=== PATIENT | male | born 1950 | race Caucasian/White ===

== ENCOUNTER 2018-07-22 12:19 | Emergency (ER) | payer MEDICARE, OTHER, SELFPAY ==
[2018-07-22 12:20] VITALS: BP 103/76; PULSE 70; RESP 18; TEMP 36.6; O2SAT 98; BMI 25.7
--- NOTE | 2018-07-22 12:55 | EKG12_ITS ---
Test Reason : AB PAIN Blood Pressure : / mmHG Vent. Rate : 058 BPM Atrial Rate : 058 BPM P-R Int : 146 ms QRS Dur : 100 ms QT Int : 430 ms P-R-T Axes : 026 002 034 degrees QTc Int : 422 ms Sinus bradycardia Otherwise normal ECG Confirmed by MILA MANZANARES, KARAN ([id number]), editorial specialist ANGE TRIPATHI ([id number]) on 07/24/2018 3:24:03 PM Referred By: PETER Confirmed By:KARAN ZARAGOZA MD
--- NOTE | 2018-07-22 12:56 | CT_ITS ---
STUDY: CT ABDOMEN AND PELVIS WITH CONTRAST REASON FOR EXAM: Male, 67 years old. Abdominal pain. RADIATION DOSAGE (If Supplied By Facility): CTDIvol = ( 14.10 ) mGy, DLP = ( 826.40 ) mGycm TECHNIQUE: Transaxial images were obtained from the dome of the diaphragm to the symphysis pubis without oral contrast. 10 ml of Isovue 300 contrast was administered. Sagittal and coronal images were reconstructed. Individualized dose optimization techniques were used for this CT. COMPARISON: None. FINDINGS: The visualized lung bases are unremarkable. The visualized portions of the heart are within normal limits. There is diffuse fatty infiltration of the liver. No focal lesion is seen. There is no evidence of gallstones. There is mild prominence of the intrahepatic biliary ducts and the common bile duct. Normal spleen. There are pancreatic calcifications in the distribution of the ducts consistent with chronic pancreatitis. There is mild prominence of the uncinate process of the pancreatic head. Normal bilateral adrenal glands. Normal right kidney. Normal left kidney. Normal visualized stomach. There are nonspecific fluid-filled small bowel loops. There is no evidence of small bowel obstruction. There is fecal retention. There is mild diverticulosis of the descending and sigmoid colon. There is no evidence of acute diverticulitis. The appendix is visualized and appears normal. Normal abdominal aorta. Normal inferior vena cava. Normal retroperitoneum. Normal urinary bladder. There is a large mass indenting the base of the bladder measuring about 4.7 cm likely representing enlarged prostate indenting the base of the bladder. Bladder mass or other cannot be entirely excluded. Urologic consultation is recommended. Normal abdominal wall. There are degenerative changes of the visualized lumbar spine. CT/Abdomen/Pelvis WITH Contrast IMPRESSION: Enlarged prostate with large mass indenting the left side of the bladder base as described above which could represent enlarged prostate or prostatic mass protruding into the base of the bladder. Bladder mass however cannot be entirely excluded. Fatty infiltration of the liver. Mild dilatation of the intrahepatic biliary ducts and the common bile duct without visualized retained stone in the distal common bile duct. Mild prominence of the uncinate process of the pancreas. Further investigation is needed to exclude small mass. Chronic pancreatitis. Diverticulosis without evidence of acute diverticulitis. Electronically Signed: Saji Abel MD at 15:27 EDT Tel , Service support ,
--- NOTE | 2018-07-22 12:58 | ED.VISSUMM ---
- ER Visit Summary Date of Service: 07/22/18 Chief Complaint: Yellow skin and abdominal discomfort History of Present Illness: The patient is a 67 M who presents for 2 days of dark urine, light-colored stool, and a generalized abdominal discomfort with yellowing of the skin today. Patient denies overt abdominal pain and cannot describe how he feels, but just feels uncomfortable in the abdomen. Skin noted to be yellow today. He has no history of travel, exotic foods, any concern for exposure to hepatitis, no fever or any other complaints. Patient has no medical history other than BPH. No recent medication changes. Patient does not drink alcohol. Physical Examination: Vital signs: afebrile, hemodynamically stable, no hypoxia on room air General: well nourished, well developed, in no distress Skin: warm, dry, no rash, no pallor, diffuse jaundice HEENT: normocephalic and atraumatic; PERRL, EOMI, moist mucous membranes, scleral icterus Cardiovascular: regular rate and rhythm without murmurs, no peripheral edema, 2+ pulses all distal extremities Respiratory: No increased work of breathing, lungs are clear to auscultation bilaterally, no rales, rhonchi or wheezing Abdominal: Abdomen is soft, nontender with normoactive bowel sounds, no guarding or rebound, no masses MSK: Moves all extremities, no deformities, normal strength Neuro: Awake and alert, oriented ?4. No facial droop, sensation and motor function intact and symmetric Test Results: Abnormal Lab Results 07/22/18 07/22/18 07/22/18 13:55 13:55 13:55 WBC 6.3 RBC 5.35 Hgb 16.9 H Hct 48.6 MCV 90.8 MCH 31.6 MCHC 34.8 RDW 13.2 RDW Differential 43.6 Plt Count 200 MPV 9.2 Immature Gran % (Auto) 0.300 Neut % (Auto) 57.9 Lymph % (Auto) 34.1 [place] % (Auto) 5.7 Eos % (Auto) 1.4 Baso % (Auto) 0.6 Absolute Neuts (auto) 3.6 Absolute Lymphs (auto) 2.14 Total Counted Not Reportable Sodium 137 Potassium 4.3 Chloride 104 Carbon Dioxide 26.0 Anion Gap 7 BUN 15 Creatinine 1.02 Estim Creat Clear Calc 74.85 Est GFR (MDRD) Af Amer 94 Est GFR (MDRD) Non-Af 77 BUN/Creatinine Ratio 14.7 Glucose 82 Lactic Acid 0.9 Calcium 9.0 Total Bilirubin 10.30 H Direct Bilirubin 5.79 H AST 181 H ALT 333 H Alkaline Phosphatase 284 H Troponin I < 0.015 Total Protein 7.9 Albumin 3.6 Globulin 4.3 H Amylase 84 Lipase 208 Urine Color Urine Clarity Urine pH Ur Specific [place] Urine Protein Urine Glucose (UA) Urine Ketones Urine Occult Blood Urine Nitrite Urine Bilirubin Urine Urobilinogen Ur Leukocyte Esterase Urine RBC Urine WBC Ur Squamous Epith Cells Other Crystals Urine Bacteria Urine Mucus 07/22/18 13:55 WBC RBC Hgb Hct MCV MCH MCHC RDW RDW Differential Plt Count MPV Immature Gran % (Auto) Neut % (Auto) Lymph % (Auto) [place] % (Auto) Eos % (Auto) Baso % (Auto) Absolute Neuts (auto) Absolute Lymphs (auto) Total Counted Sodium Potassium Chloride Carbon Dioxide Anion Gap BUN Creatinine Estim Creat Clear Calc Est GFR (MDRD) Af Amer Est GFR (MDRD) Non-Af BUN/Creatinine Ratio Glucose Lactic Acid Calcium Total Bilirubin Direct Bilirubin AST ALT Alkaline Phosphatase Troponin I Total Protein Albumin Globulin Amylase Lipase Urine Color Yellow Urine Clarity Sl. Cloudy Urine pH 5.0 Ur Specific [place] 1.015 Urine Protein Negative Urine Glucose (UA) Normal Urine Ketones Negative Urine Occult Blood 10 H Urine Nitrite Negative Urine Bilirubin 3 H Urine Urobilinogen 4 H Ur Leukocyte Esterase 25 H Urine RBC 0 SEEN Urine WBC 0-5 SEEN Ur Squamous Epith Cells 0-5 SEEN Other Crystals 2+ Urine Bacteria RARE Urine Mucus RARE Clinical Impression(s) from Imaging Studies Abdomen/Pelvis CT 07/22/18 12:56 IMPRESSION: Enlarged prostate with large mass indenting the left side of the bladder base as described above which could represent enlarged prostate or prostatic mass protruding into the base of the bladder. Bladder mass however cannot be entirely excluded. Fatty infiltration of the liver. Mild dilatation of the intrahepatic biliary ducts and the common bile duct without visualized retained stone in the distal common bile duct. Mild prominence of the uncinate process of the pancreas. Further investigation is needed to exclude small mass. Chronic pancreatitis. Diverticulosis without evidence of acute diverticulitis. Electronically Signed: Saji Abel MD at 15:27 EDT Tel , Service support , Medications Given Discontinued Medications Sodium Chloride () 1,000 mls @ 1,000 mls/hr IV .Q1H ONE Stop: 07/22/18 13:53 Last Admin: 07/22/18 14:09 Dose: 1,000 mls/hr Emergency Department Course and Treatment: Patient was offered and declined pain medication, as he is currently not having any significant discomfort or nausea. Workup for painless jaundice was performed, with no leukocytosis or anemia, no electrolyte derangements. Hepatic function remarkable for elevated total bilirubin of 10.3, direct bilirubin 5.79, and mild transaminitis. Lipase was within normal limits. Troponin negative. EKG showed no ischemic process. CT the abdomen and pelvis was performed and showed findings consistent with chronic pancreatitis and a questionable mass in the pancreatic head. it also showed an enlarged prostate versus prostate mass, which is consistent with patient's history of known BPH. Patient was discussed with Dr. Luna, who recommended patient be transferred for specialty evaluation, given that this is likely going to be pancreatic cancer and he will require GI specialist evaluation. Patient requested transfer to [facility]. Patient was discussed with Dr. Adhikari, and will be transferred to the [facility] for specialist evaluation. Plan was discussed with the patient and and all questions were answered. Patient again was offered medication for any pain or nausea, and he at this time declined as he is having no symptoms. Treatment Plan: [] Disposition: [] Impression: Painless jaundice, pancreatic mass, concern for pancreatic cancer This note was generated with [employer] dictation software. It may contain incorrect words, spelling, and punctuation that were not noted in review of the chart prior to signing ED Disposition - Plan for ED Patient: Chief Complaint: Abd Pain Referrals: Royce Springer MD [Primary Care Provider] -
[2018-07-22 14:05] LABS: Red Blood Cells-Urine 0 SEEN /hpf (0-5)
[2018-07-22 14:09] LABS: Absolute Lymphocyte Count 2.14 X10^3/ul (0.83-4.51); Absolute Neutrophil Count 3.6 X10^3/uL (2.0-7.7); Basophil# 0.04 X10^3/uL; Basophil% 0.6 % (0-1); Color, Urine Yellow (Yellow); Eosinophil# 0.09 X10^3/uL; Eosinophils% 1.4 % (0-5); Glucose, Dipstick Normal (Normal); Hematocrit 48.6 % (40-54); Hemoglobin 16.9 g/dl (13.0-16.5); Ketone-Dipstick Negative (Negative); Leukocyte Esterase-Dipstick 25 /ul (Negative); Lymphocyte # 2.14 X10^3/ul (4.0); Lymphocyte % 34.1 % (19-41); Mean Corp Hgb Conc 34.8 g/gl (32-36); Mean Corpuscular Hgb 31.6 pg (27.0-32.0); Mean Corpuscular Volume 90.8 fL (80-94); Mean Platelet Vol. 9.2 fl (6.2-12.0); Monocyte# 0.36 X10^3/uL; Monocyte% 5.7 % (0-10); Neutrophil # 3.63 X10^3/uL (2.7-7.7); Neutrophil % 57.9 % (47-70); Nitrite-Dipstick Negative (Negative); Occult Blood-Urine 10 /ul (Negative); Platelet Count 200 K/mm3 (150-450); Protein-Dipstick Negative (Negative); RBC Distribution Width CV 13.2 % (11.6-14.6); RBC Distribution Width SD 43.6 fl (35.1-43.9); Red Blood Count 5.35 M/mm3 (4.6-6.2); Specific Gravity, Urine 1.015 (1.002-1.030); Urine Clarity Sl. Cloudy (Clear); Urine Urobilinogen 4 mg/dl (Normal); White Blood Count 6.3 K/mm3 (4.4-11.0)
[2018-07-22] MEDS: 0.9% Normal Saline 1,000 ML 1000 ML IV (14:09)
[2018-07-22 14:12] LABS: POSITIVE COUNT NO; POSITIVE DIFFERENTIAL NO; POSITIVE MORPHOLOGY NO
[2018-07-22 14:19] LABS: Squamous Epithelial Cells - UA 0-5 SEEN /hpf (0-5); Urine Bilirubin Dipstick 3 mg/dL (Negative); White Blood Cells 0-5 SEEN /hpf (0-5)
[2018-07-22 14:20] LABS: Bacteria RARE /hpf (None Seen); Mucous, Urine RARE /hpf (<or=2+); Other Crystals-Urine 2+ /hpf (None Seen)
[2018-07-22 14:32] LABS: AST(SGOT) 181 U/L (15-37); Alanine Aminotransfer ALT/SGPT 333 U/L (16-61); Albumin, Serum 3.6 g/dL (3.2-5.0); Alkaline Phosphatase 284 U/L (45-117); Amylase 84 U/L (25-115); Anion Gap 7 (5-15); BUN 15 mg/dL (7-18); BUN/Creat Ratio 14.7 RATIO (10-20); Bilirubin, Direct 5.79 mg/dL (0.00-0.30); Chloride 104 mmol/L (98-107); Creatinine, Serum 1.02 mg/dL (0.70-1.30); EST Glomerular Filtration Rate 77 mL/min (>60); Est Glom Filt Rate - Afr Amer 94 mL/min (>60); Estimated Creatinine Clearance 74.85 ml/min; Globulin 4.3 g/dL (2.2-4.2); Glucose 82 mg/dL (74-106); Lipase 208 U/L (73-393); Potassium 4.3 mmol/L (3.5-5.1); Protein, Total 7.9 g/dL (6.4-8.2); Sodium Level 137 mmol/L (136-145)
[2018-07-22 14:46] LABS: Lactic Acid 0.9 mmol/L (0.4-2.0)
[2018-07-22 15:10] VITALS: BP 137/92; PULSE 70; RESP 16; O2SAT 99
--- NOTE | 2018-07-22 16:27 | NURSING ---
CALLING [facility] FOR TRANSFER.
--- NOTE | 2018-07-22 17:51 | NURSING ---
[facility] MAIN H81 BED 25 REPORT [phone]
[2018-07-22 18:00] VITALS: BP 135/91; PULSE 65; RESP 16; O2SAT 98
--- NOTE | 2018-07-22 18:50 | ED.RN ---
1811-attempted to call nurse report at [facility]. Was told the nurse was busy. Gave my name and number to call back. 1850- second attempt to call report to [facility]. Was told the nurse was still busy. Was told to call back after 1900.
[2018-07-22 19:04] VITALS: BP 135/95; PULSE 85; RESP 16; O2SAT 98
[2018-07-25 08:12] LABS: HEPATITIS B SURFACE AG Negative (Negative); Hepatitis A IgM Antibody Negative (Negative); Hepatitis B Core AB IgM Negative (Negative)
[2018-07-25 11:43] LABS: Hep C Antibodies <0.1 s/co ratio (0.0-0.9)
== END 2018-07-22 20:05 | disposition short-term general hospital (02) ==
PROVIDERS: Emergency Provider Emergency Medicine; Family Provider Internal Medicine; PCP Internal Medicine
DX: R17 Unspecified jaundice (principal); K86.89 Other specified diseases of pancreas; N40.0 Benign prostatic hyperplasia without lower urinary tract symptoms; Z79.899 Other long term (current) drug therapy
CPT/HCPCS: 74177; 80048; 80074; 80076; 81001; 82150; 83605; 83690; 84484; 85025; 93005; 99285; J7030; A4216

== ENCOUNTER 2018-09-22 07:39 | Emergency (ER) | payer MEDICARE, OTHER, SELFPAY ==
[2018-09-22] VITALS (7 sets, daily range): BP systolic 97–121; BP diastolic 60–78; PULSE 76–93; RESP 17–24; TEMP 36.8–37.6; O2SAT 94–97; BMI 25.7
--- NOTE | 2018-09-22 07:59 | RAD_ITS ---
STUDY: X-RAY CHEST REASON FOR EXAM: Male, 67 years old. 2 day history of chills and weakness. TECHNIQUE: Single AP portable view of the chest. COMPARISON: None. FINDINGS: EKG electrodes are seen. Mild elevation of the right hemidiaphragm. Minimal increased linear markings at the left lung base suggestive of linear atelectasis and/or scarring. No infiltrate is seen. There is no demonstrated pleural abnormality. Normal size heart. Normal mediastinum and jen. Normal visualized pulmonary arteries. Normal visualized aortic arch and descending thoracic aorta. There is a mild levoscoliosis of the thoracic spine. I suspect deformity of the anterior aspect of the left sixth rib. There is no demonstrated abnormality of the visualized soft tissue structures of the upper abdomen. RAD/Chest 1 View (Portable) IMPRESSION: Findings suggestive of deformity of the anterior aspect of the left sixth rib. Mild increased markings at the left lung base suggestive of linear atelectasis and/or scarring. Electronically Signed: Rico Skinner MD at 9:27 EST Tel [phone], Service support ,
--- NOTE | 2018-09-22 07:59 | EKG12_ITS ---
Test Reason : WEAKNESS Blood Pressure : / mmHG Vent. Rate : 078 BPM Atrial Rate : 078 BPM P-R Int : 132 ms QRS Dur : 102 ms QT Int : 370 ms P-R-T Axes : 043 019 044 degrees QTc Int : 421 ms Normal sinus rhythm Normal ECG Confirmed by KARAN ZARAGOZA MD ([id number]), art editor ANGE TRIPATHI ([id number]) on 09/27/2018 3:35:23 PM Referred By: DC Confirmed By:KARAN ZARAGOZA MD
--- NOTE | 2018-09-22 07:59 | CT_ITS ---
STUDY: CT ABDOMEN AND PELVIS WITH CONTRAST REASON FOR EXAM: Male, 67 years old. Recent endoscopic pancreatic biopsy with stent placement. The patient now presents with constipation and abdominal pain. RADIATION DOSAGE (If Supplied By Facility): CTDIvol = ( 10.78 ) mGy, DLP = ( 685.44 ) mGycm TECHNIQUE: Transaxial images were obtained from the dome of the diaphragm to the symphysis pubis without oral contrast. 100 ml of Isovue 300 contrast was administered. Sagittal and coronal images were reconstructed. Individualized dose optimization techniques were used for this CT. COMPARISON: Comparison is made with prior examination dated July 22, 2018. FINDINGS: Stable minimal degree of increased markings at the lung bases suggestive of bibasilar atelectasis and/or scarring. The visualized portions of the heart are within normal limits. There is evidence of a pneumobilia. This is in keeping with the presence of a stent within the common bile duct. A biliary stent is seen within the common bile duct. The distal tip is within the second portion of the duodenum. The lumen of the stent shows evidence of increased attenuation. This may represent either fluid or soft tissue. The gallbladder is not distended. There is mild splenomegaly. There are pancreatic calcifications in the distribution of the ducts consistent with chronic pancreatitis. Stable mild prominence of the uncinate processes of the pancreas. Normal bilateral adrenal glands. Normal right kidney. Normal left kidney. There is a small hiatal hernia. Normal small intestine. A large amount of fecal material is seen in the left hemicolon as well as in the rectosigmoid colon. The appendix is visualized and appears normal. Normal abdominal aorta. Normal inferior vena cava. Normal retroperitoneum. Normal urinary bladder. There is inhomogeneous enlargement of the prostate gland. This measures 6 cm x 4.7 cm. This causes indentation at the bladder base. Normal abdominal wall. There are degenerative changes of the visualized lumbar spine. CT/Abdomen/Pelvis W IV Cont ONLY IMPRESSION: Pneumobilia. A stent is seen within the common bile duct with the distal aspect within the second portion of the duodenum. The lumen of the stent is fluid-filled. Stable pancreatic calcifications suggestive of chronic pancreatitis was stable prominence of the uncinate process of the pancreas. Large amount of fecal material is seen in the rectosigmoid colon as well as in the left hemicolon. Inhomogeneous prostatic enlargement. Electronically Signed: Rico Skinner MD at 9:25 EST Tel [phone], Service support ,
[2018-09-22 08:18] LABS: Absolute Lymphocyte Count 0.65 X10^3/ul (0.83-4.51); Absolute Neutrophil Count 6.7 X10^3/uL (2.0-7.7); Basophil# 0.01 X10^3/uL; Basophil% 0.1 % (0-1); Hematocrit 46.3 % (40-54); Hemoglobin 16.4 g/dl (13.0-16.5); Lymphocyte # 0.65 X10^3/ul (4.0); Lymphocyte % 8.2 % (19-41); Mean Corp Hgb Conc 35.4 g/gl (32-36); Mean Corpuscular Hgb 31.5 pg (27.0-32.0); Mean Platelet Vol. 8.4 fl (6.2-12.0); Monocyte# 0.58 X10^3/uL; Monocyte% 7.3 % (0-10); Neutrophil # 6.65 X10^3/uL (2.7-7.7); Neutrophil % 84.1 % (47-70); Platelet Count 121 K/mm3 (150-450); RBC Distribution Width CV 12.5 % (11.6-14.6); RBC Distribution Width SD 39.9 fl (35.1-43.9); White Blood Count 7.9 K/mm3 (4.4-11.0)
[2018-09-22 08:19] LABS: POSITIVE COUNT NO; POSITIVE DIFFERENTIAL NO; POSITIVE MORPHOLOGY NO
[2018-09-22 08:26] LABS: International Normalized Ratio 1.1; Prothrombin Time (Protime)PT. 14.1 SECONDS (11.7-14.9)
[2018-09-22 08:27] LABS: Partial Thromboplast Time 26.3 Seconds (24.1-36.2)
[2018-09-22] MEDS: 0.9% Normal Saline 1,000 ML 1000 ML IV (08:35)
[2018-09-22 08:36] LABS: ALB/GLOB Ratio 0.8 RATIO (0.9-2.4); AST(SGOT) 76 U/L (15-37); Alanine Aminotransfer ALT/SGPT 97 U/L (16-61); Albumin, Serum 3.1 g/dL (3.2-5.0); Alkaline Phosphatase 193 U/L (45-117); Anion Gap 10 (5-15); BUN 17 mg/dL (7-18); BUN/Creat Ratio 18.2 RATIO (10-20); Calcium,Total 8.4 mg/dL (8.5-10.1); Chloride 103 mmol/L (98-107); Creatinine, Serum 0.93 mg/dL (0.70-1.30); EST Glomerular Filtration Rate 86 mL/min (>60); Est Glom Filt Rate - Afr Amer 104 mL/min (>60); Estimated Creatinine Clearance 82.09 ml/min; Globulin 4.1 g/dL (2.2-4.2); Glucose 140 mg/dL (74-106); Lipase 134 U/L (73-393); Potassium 3.6 mmol/L (3.5-5.1); Protein, Total 7.2 g/dL (6.4-8.2); Sodium Level 137 mmol/L (136-145)
[2018-09-22 08:38] LABS: Lactic Acid 1.7 mmol/L (0.4-2.0)
--- NOTE | 2018-09-22 08:53 | ED.VISSUMM ---
- ER Visit Summary Date of Service: 09/22/18 Chief Complaint: No energy History of Present Illness: The patient is a 67 M who has a recent past medical history of a pancreatic mass and dilated bile ducts. He was seen at this emergency department in July and transferred to the [facility] for abnormal findings on his CT and a possible pancreatic mass. He had a biopsy performed at that time. It was benign but they are still not sure what is causing his issues. He had a stent placed in his bile duct at that time as well. He followed up after 2 months, on this past Tuesday. He had a repeat endoscopy and biopsy. Results are still pending from that. Over the past 3 days he reports decreased energy, chills, low-grade fevers, myalgias, and fatigue. No specific symptoms. No chest pain or shortness of breath. No cough. No abdominal pain or diarrhea. He has not had a bowel movement for a few days. No urinary symptoms. No rashes. No joint pains. Physical Examination: Blood pressure 97/60. Heart rate 93 and respiratory rate 24. Afebrile. 94% on room air. The patient appears to show some generalized fatigue and weakness but is otherwise in no acute distress. He is alert and oriented. Skin appears unremarkable. Heart regular rate and rhythm. Lungs clear. Abdomen soft and nontender. Test Results: EKG showed sinus rhythm at a rate of 78. No sign of acute ischemia or infarction pattern. Platelets 121, down from 200 a couple months ago. Otherwise CBC normal. Metabolic panel shows elevated liver enzymes, but they are all better from when he was here previously. Lipase normal. Coags normal. Troponin and lactate normal. Urinalysis, chest x-ray, CT pending. Emergency Department Course and Treatment: Patient has generalized and fairly vague symptoms. He could be coming down with a viral illness. I am also concerned about complications from his recent procedure and his prior hepatobiliary disease. I did consider sepsis, and a broad workup was pursued. He did not technically meet sepsis criteria, and so antibiotics were initially held. Will reassess. White count normal. Platelets slightly low at 121. Coags normal. No bleeding or clotting suspected. Hepatic panel is all improved since his previous evaluation. I do not have a baseline for him. Total bilirubin 1.7, alkaline phosphatase 193, ALT 97, AST 76. Nothing significantly abnormal. Urinalysis unremarkable. No sign of infection. Troponin and lactate normal. Cultures pending. Chest x-ray showed 6 rib anterior deformity. Left base atelectasis versus scarring. I reviewed his x-ray. There was nothing concerning there that would explain his symptoms. CT showed pneumobilia consistent with his history of a stent and his procedure. The stent is fluid-filled. He has some pancreatic changes which are stable. Increased fecal material noted. Enlarged prostate noted. No sign of anything to explain his symptoms. No sign of post procedure complications. Patient felt better on reevaluation. No further chills. I am not sure what is causing his symptoms. He is not septic. I cannot identify a complication from his procedure. He may be coming down with a viral illness. I advised him to rest and stay hydrated. I believe he is appropriate for discharge. He has follow-up with his doctor. If he has new or worsening issues or difficulty following up, he will return right away. I did page his [facility] doctor, Dr. Johnson but at the time of this dictation, I have not heard back. Treatment Plan: As above Disposition: Discharge Impression: 1. Generalized fatigue This note was generated with [employer] dictation software. It may contain incorrect words, spelling, and punctuation that were not noted in review of the chart prior to signing ED Disposition - Plan for ED Patient: Chief Complaint: Weakness Instructions: ED Weakness [facility] Referrals: Royce Springer MD [Primary Care Provider] - Additional Instructions: also follow up with your [facility] doctor as planned.
[2018-09-22 10:01] LABS: Bacteria 0 SEEN /hpf (None Seen); Mucous, Urine 0 SEEN /hpf (<or=2+); Squamous Epithelial Cells - UA 0 SEEN /hpf (0-5); White Blood Cells 0 SEEN /hpf (0-5)
[2018-09-22 10:05] LABS: Color, Urine Yellow (Yellow); Glucose, Dipstick Normal (Normal); Ketone-Dipstick Negative (Negative); Leukocyte Esterase-Dipstick Negative /ul (Negative); Nitrite-Dipstick Negative (Negative); Occult Blood-Urine 250 /ul (Negative); Protein-Dipstick 15 mg/dl (Negative); Urine Bilirubin Dipstick Negative (Negative); Urine Clarity Clear (Clear); Urine Urobilinogen 1 mg/dl (Normal)
[2018-09-22 10:17] LABS: Red Blood Cells-Urine 0-5 SEEN /hpf (0-5)
--- NOTE | 2018-09-22 11:22 | ED.DEP ---
ED Disposition - Plan for ED Patient: Chief Complaint: Weakness Instructions: ED Weakness [facility] Referrals: Royce Springer MD [Primary Care Provider] - Additional Instructions: also follow up with your [facility] doctor as planned.
--- OUTSIDE RECORDS SUMMARY | 2018-11-07 19:37 | XMS RPT_ITS ---
:1950 Author Organization OHIP Care Team Providers Name Role Phone LEIGH WINSTON (GORDO) Attending Unavailable ROYCE SPRINGER H Referring Unavailable LEIGH WINSTON (HIGH SCALER) Referring Unavailable LEIGH WINSTON (HIGH SCALER) Referring Unavailable KEILA SALINAS (HECTOR) Attending Unavailable LEIGH WINSTON (HIGH SCALER) Referring Unavailable DELVIN CRISTIANO Referring Unavailable OLDERLEIGH (HIGH SCALER) Attending Unavailable DELVIN CRISTIANO Referring Unavailable NEISHA BLEDSOE Admitting Unavailable KIM CARRANZA) Attending Unavailable DEL, JOSUEEN Attending Unavailable DEL, PRABHLEEN Attending Unavailable DEL, PRABHLEEN Referring Unavailable MARGARET PALENCIA (COURT SUPERVISOR) Referring Unavailable MARGARET PALENCIA (COURT SUPERVISOR) Referring Unavailable ARA MICHAELS (LISY) Attending Unavailable KIM CARRANZA) Referring Unavailable ARA MICHAELS (LISY) Referring Unavailable DEL, PRABHLEEN Admitting Unavailable DEL, PRABHLEEN Attending Unavailable DEL, PRABHLEEN Attending Unavailable JULIAN ANDREWS Referring Unavailable ARA MICHAELS (LISY) Attending Unavailable ROYCE SPRINGER Referring Unavailable DEL, PRABHLEEN Admitting Unavailable DEL, PRABHLEEN Attending Unavailable ARA MICHAELS (LISY) Referring Unavailable DEL, PRABHLEEN Attending Unavailable ARA MICHAELS (LISY) Referring Unavailable NO, PHYSICIAN Primary Care Unavailable [facility] Consulting Unavailable SWETA LIU Admitting Unavailable DANNIELLE MCGUIRE Attending Unavailable Royce Springer Primary Care Unavailable Bart Louise Attending Unavailable Royce Springer Primary Care Unavailable Valeria Denton Attending Unavailable PROBLEMS PROBLEMS DATE TYPE CONDITION / CODE ATTENDING STATUS SOURCE 10/24/2018 Active Cyst of pancreas NA Active [facility] / K86.2(ICD-10) [place] Repository 08/02/2018 Active Other abnormal NA Active [facility] tumor markers / [place] R97.8(ICD-10) Repository 07/26/2018 Active Disease of NA Active [facility] pancreas, [facility] [place] unspecified / Repository K86.9(ICD-10) 07/26/2018 Active Other specified THIPPANNA, Active [facility] diseases of KIM BRENNER) [place] biliary tract / Repository K83.8(ICD-10) 07/23/2018 Active Pure THIPPANNA, Active [facility] hypercholesterole KIM BRENNER) [facility] [place] aamir, unspecified Repository / E78.00(ICD-10) 07/23/2018 Active Family history of THIPPANNA, Active [facility] malignant KIM BRENNER) [place] neoplasm of Repository digestive organs / Z80.0(ICD-10) 07/23/2018 Active Benign prostatic THIPPANNA, Active [facility] hyperplasia with KIM BRENNER) [place] lower urinary Repository tract symptoms / N40.1(ICD-10) 07/23/2018 Active Other obstructive THIPPANNA, Active [facility] and reflux KIM BRENNER) [place] uropathy / Repository N13.8(ICD-10) 11/24/2017 Active Other microscopic NA Active [facility] hematuria / [place] R31.29(ICD-10) Repository 11/24/2017 Active Abnormal levels NA Active [facility] of other serum [place] enzymes / Repository R74.8(ICD-10) 11/23/2017 Active 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 [place] therapy / Repository Z79.899(ICD-10) 11/23/2017 Active Weakness / NA Active [facility] R53.1(ICD-10) [place] Rep[facility] 11/23/2017 Active Other fatigue / NA Active [facility] R53.83(ICD-10) [place] Repository 11/23/2017 Active Unspecified NA Active [facility] abdominal pain / [place] R10.9(ICD-10) Repository 11/19/2017 Admitting Syncope and DANNIELLE MCGUIRE Active [facility] diagnosis collapse / [place] Repository R55(ICD-10) PROCEDURES PROCEDURES No Procedure Records FoundRESULTS RESULTS ANES POST Observed: 10/24/2018 Status: COMPLETED Source: [place] 3:35 PM [facility] REPOSITORY HNO ID: [id number] Author: Ara Boland Service: Anesthesiology Author Type: Anesthesiologist Type: Anesthesia PostOp Filed: 10/24/2018 3:36 PM Note Text: POST ANESTHESIA EVALUATION NOTE SERVICE DATE: 10/24/2018 SERVICE TIME: 153 : 1950 Vitals: There were no vitals filed for this visit. There were no vitals filed for this visit. There were no vitals filed for this visit. There were no vitals filed for this visit. There were no vitals filed for this visit. Validated Vital Signs: HR: 68; BP: 127/71; RR: 16; SpO2%: 96; Temperature: 36.3 POST ANES STATUS: No apparent anesthetic complications. The patient is appropriately hydrated with stable respiratory and cardiovascular status. Patient has safe and adequate airway control. The patient has appropriate pain relief and no significant post operative nausea or vomiting. The patient has achieved baseline mental status. Intra-Operative Events: No Significant Anesthesia Events Further assessment by Anesthesia Service: None Other Remarks: SIGNATURE: Ara Boland MD PATIENT NAME: Guerrero Wilson DATE: October 24, 2018 TIME: 3:35 PM PAGER/CONTACT #: [phone] OBSOLETE Observed: 10/24/2018 Status: COMPLETED Source: [place] 3:00 PM [facility] REPOSITORY Procedure (GASTPR) GUERRERO WILSON ([id number]) 1950 M Date Time Provider Department 10/24/18 3:00 PM LUIS JOHNSON GASTPR During your visit today, we recorded the following information about you: Julian Ford LPN 10/24/2018 5:28 PM Signed AMBULATORY PATIENT EDUCATION NOTE TOPIC: GI PROCEDURES: Endoscopic Ultrasound (EUS) with or without Fine Needle Aspiration (FNA) READINESS TO LEARN INSTRUCTION PROVIDED TO: Patient and family member COGNITIVE ABILITY: Alert and oriented PTED MOTIVATION TO LEARN: Interested FAMILY SUPPORT: High - Very involved in pt care IPATIENT LEARNS BEST BY: Written Instruction - Hand-outs Verbal Instruction FACTORS AFFECTING LEARNING: None PHYSICAL LIMITATIONS AFFECTING LEARNING: None LEARNING RESPONSE METHOD OF INSTRUCTION: Individual instruction PATIENT / FAMILY RESPONSE: Verbalizes understanding of: WORSENING CONDITION-Signs and symptoms of a worsening condition that warrant a call to the physician FOLLOW-UP PLAN: Patient instructed to call with any further issues SUPPLEMENTAL MATERIAL: Procedure Discharge Instructions REFERRAL (RECOMMENDATION): None Electronically Signed By: Julian Ford LPN Referring Provider: ARA MICHAELS [[id number]] Allergies As of Date: 10/24/2018 (No Known Allergies) Date Reviewed: 10/24/2018 Reviewed by: Stacie Hackett (Rn) LAZARO Lennon - Fully Assessed Reason for Visit: Procedure [88] Cmt: ERCP Visit Diagnosis:Pancreatic mass [K86.9] Order(s):ERCP GEN ANES [[id number]] Order #: [id number] UPPER ENDOSCOPIC ULTRASOUND [[id number]] Order #: [id number]. #:[id number] Prescriptions as of 10/24/2018 Sig: PREDNISONE 20 MG TABLET Take 1 tablet by mouth once d* PREDNISONE 10 MG TABLET Take 1 tablet by mouth once d* FINASTERIDE 5 MG TABLET Take 1 tablet by mouth once d* SILDENAFIL (ANTIHYPERTENSIVE)* Take 1 tablet by mouth as dir* * MULTIVITAMIN TABLET Take one(1) tablet daily. Problem List As Of Date 10/24/2018 Noted Resolved Sebaceous cyst [L72.3] INVALID FOR*09/27/2011 Pure hypercholesterolemia [E78.00] INVALID FOR* More... Unspecified disorder of prostate [N42.9] INVALID FOR*09/27/2011 Erectile dysfunction [N52.9] INVALID FOR*12/15/2017 BPH with obstruction/lower urinary tract sympto*INVALID FOR* More... ELEVATED PROSTATE SPECIFIC ANTIGEN [R97.20] INVALID FOR* FAMILY HX COLON CANCER [Z80.0] INVALID FOR* More... 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 Prostate mass [N42.9] INVALID FOR* More... Pancreatic mass [K86.9] INVALID FOR* More... Visit Notes: >> Julian Brand Oct 24, 2018 5:27 PM Status: Signed AMBULATORY PATIENT EDUCATION NOTE TOPIC: GI PROCEDURES: Endoscopic Ultrasound (EUS) with or without Fine Needle Aspiration (FNA) READINESS TO LEARN INSTRUCTION PROVIDED TO: Patient and family member COGNITIVE ABILITY: Alert and oriented PTED MOTIVATION TO LEARN: Interested FAMILY SUPPORT: High - Very involved in pt care IPATIENT LEARNS BEST BY: Written Instruction - Hand-outs Verbal Instruction FACTORS AFFECTING LEARNING: None PHYSICAL LIMITATIONS AFFECTING LEARNING: None LEARNING RESPONSE METHOD OF INSTRUCTION: Individual instruction PATIENT / FAMILY RESPONSE: Verbalizes understanding of: WORSENING CONDITION-Signs and symptoms of a worsening condition that warrant a call to the physician FOLLOW-UP PLAN: Patient instructed to call with any further issues SUPPLEMENTAL MATERIAL: Procedure Discharge Instructions REFERRAL (RECOMMENDATION): None Electronically Signed By: Julian Ford LPN Encounter Status:Closed by JULIAN FORD on 10/24/18 CYTOLOGY Observed: 10/24/2018 Status: F Source: [place] 2:[address] [facility] REPOSITORY Specimen originated from [facility] Specimen #: [id number] Submitting Physician: LUIS JOHNSON M.D. SPECIMEN SUBMITTED A: PANCREAS, FINE NEEDLE ASPIRATE(THINPREP AND CELL BLOCK) FINAL DIAGNOSIS A. PANCREAS, FINE NEEDLE ASPIRATE (THINPREP AND CELL BLOCK) Non-diagnostic sample. Predominantly gut contamination. Era Mario M.D. 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 Location: [facility] Diagnostic interpretation performed at [facility], [address] [place] [id number] PANCREAS W IVCON Observed: 10/24/2018 Status: F Source: [place] 12:[address] [facility] REPOSITORY * * *Final Report* * * DATE OF EXAM: Oct 24 2018 12:38PM [facility] [place] - CT PANCREAS W IVCON / PROCEDURE REASON: multiple diagnoses * * * * Physician Interpretation * * * * CT ABDOMEN WITH IV CONTRAST CLINICAL INDICATION: 68-year-old man with a history of pancreatic mass, suspected inflammatory, status post trial of steroids COMPARISON: 08/01/2018 TECHNIQUE: A CT of the abdomen was performed using pancreas protocol, including both late arterial phase and portal phase imaging. Multiplanar reformats were obtained CONTRAST: IV: 150 ml of Omnipaque 300 CT Radiation dose: Integrated Dose-length product (DLP) for this visit = 607 mGy*cm. CT Dose Reduction Employed: mAs-kVp adjusted based on patient size-age RESULT: PANCREAS: MORPHOLOGIC EVALUATION: Again seen is a subtly hypoattenuating mass in the posterior pancreatic head/uncinate process measuring approximately 1.4 x 1.2 x 2.0 cm (series 4, image 51 and series 6, image 45), not significantly changed in size or appearance compared to the prior exam. There are multiple parenchymal calcifications throughout the pancreas, consistent with chronic pancreatitis. There is no pancreatic ductal dilation. There is no biliary ductal dilation with a common bile duct stent in place (there is expected pneumobilia). ARTERIAL EVALUATION SMA Degree of solid soft tissue contact: None Degree of increased hazy attenuation/stranding contact: None Focal vessel narrowing or contour irregularity: Absent Extension to first SMA branch: Absent CELIAC AXIS Degree of solid soft tissue contact: None Degree of increased hazy attenuation/stranding contact: None Focal vessel narrowing or contour irregularity: Absent MERYL Degree of solid soft tissue contact: None Degree of increased hazy attenuation/stranding contact: None Focal vessel narrowing or contour irregularity: Absent Extension to celiac axis: Absent Extension to bifurcation of right/left hepatic artery: Absent ARTERIAL VARIANT ANATOMY: Absent VENOUS EVALUATION MPV: Degree of solid soft tissue contact: <180 degrees (i.e. series 6, image 44) Degree of increased hazy attenuation/stranding contact: None Focal vessel narrowing or contour irregularity: Absent SMV: Degree of solid soft tissue contact: <180 degrees (i.e. series 4, image 47) Degree of increased hazy attenuation/stranding contact: < 180 degrees Focal vessel narrowing or contour irregularity: Absent Extension to first draining vein: Absent Venous thrombus: No venous thrombosis. Venous collaterals: None CONTIGUOUS ORGAN INVASION: None SUSPICIOUS LYMPH NODES: None LIVER LESIONS: Absent. PERITONEUM: Ascites absent. No peritoneal nodules. OTHER ABDOMINAL FINDINGS: Spleen: No mass. The spleen is mildly enlarged, measuring 14 cm in craniocaudal dimension, unchanged. Adrenals:No mass. Kidneys: No mass, calculus or hydronephrosis. GI tract: No dilation or wall thickening. BONES: No suspicious osseous lesions. LOWER THORAX: Few pulmonary nodules, including a 5 mm subpleural nodule in the left lower lobe (series 7, image 15) are unchanged. Mild bibasilar atelectasis. IMPRESSION: SUBTLY HYPOATTENUATING 2.0 CM PANCREATIC HEAD/UNCINATE PROCESS MASS, SIMILAR IN SIZE AND APPEARANCE COMPARED TO 08/01/2018. NO PANCREATIC DUCTAL DILATION. LESS THAN 180 DEGREE ABUTMENT OF THE MAIN PORTAL VEIN/SMV. NO ARTERIAL INVOLVEMENT. NO METASTATIC DISEASE IN THE ABDOMEN. Road Freight Conductor: MANJIT Transcribe Date/Time: Oct 24 2018 12:52P Dictated by : CHRISTOPHER JUAN MD This examination was interpreted and the report reviewed and electronically signed by: CHRISTOPHER JUAN MD on Oct 24 2018 1:09PM EST [id number] PROGRESS Observed: 10/24/2018 Status: COMPLETED Source: [place] 12:34 PM [facility] REPOSITORY HNO ID: [id number] Author: ALVARO Conklin (Ct) Service: Radiology Author Type: Clinical Diploma Dental Assistant Type: Progress Notes Filed: 10/24/2018 12:40 PM Note Text: Radiology Service Progress Note PATIENT NAME: Guerrero Wilson DATE OF SERVICE: October 24, 2018 TIME: 12:35 PM PATIENT IDENTITY VERIFICATION COMPLETED USING TWO (2) METHODS: Patient confirmed name verbally and ID band matches.. PATIENT GENDER DATA: Male PATIENT RELEVANT IMPLANT DATA REVIEWED: Yes RADIOLOGY DEPARTMENT: CT; Exam(s) Completed: Pancreas PERIPHERAL IV DATA: Site assessment: Clean,Dry and Intact, Site disposition Left in for next appointment SIGNED BY: ALVARO Conklin October 24, 2018 12:35 PM PROGRESS Observed: 10/24/2018 Status: COMPLETED Source: [place] 11:45 AM [facility] REPOSITORY HNO ID: [id number] Author: Stacie ChristyRn) LAZARO Lennon Service: Radiology Author Type: Registered Nurse Type: Progress Notes Filed: 10/24/2018 12:33 PM Note Text: Radiology Service Progress Note PATIENT NAME: Guerrero Wilson DATE OF SERVICE: October 24, 2018 TIME: 11:46 AM PATIENT WEIGHT: 190 LBS PATIENT IDENTITY VERIFICATION COMPLETED USING TWO (2) METHODS: Patient confirmed name verbally and ID band matches.. PATIENT GENDER DATA: Male CONTRAST INDUCED NEPHROPATHY RISK FACTORS: Patient age > 60 years CREATININE: Creatinine Date Value Ref Range Status 08/01/2018 0.82 0.73 - 1.22 mg/dL Final 07/26/2018 0.82 0.73 - 1.22 mg/dL Final 07/25/2018 0.82 0.73 - 1.22 mg/dL Final eGFR-All Other Races Date Value Ref Range Status 08/01/2018 >60 . Final Comment: eGFR (Estimated GFR) Units of measure: mL/min/1.73 meters squared eGFR is derived from the reexpressed MDRD Study equation using the following parameters: serum creatinine, age, gender and race. The creatinine assay has been calibrated to be traceable to IDMS. An eGFR <60 mL/min/1.73m2 for >3 months is consistent with chronic kidney disease. Refer to KDOQI guidelines for clinical interpretation. In patients with unstable renal function, e.g. those with acute kidney injury, the eGFR may not accurately reflect actual GFR. eGFR- Date Value Ref Range Status 08/01/2018 >60 Final P.O.C.T. RESULTS: POC done: Yes, See Lab Tab October 24, 2018 TREATMENT: No Hydration needed. ALLERGIES: Reviewed and unchanged CONTRAST ALLERGY: NO. IV SITE: Ambulatory: A peripheral IV was started in the Right antecubital site with a Angio cath: 18 gauge. and A Saline lock was inserted per protocol IV SITE APPEARANCE: Clean,Dry and Intact SIGNED BY: Stacie Lennon RN October 24, 2018 11:46 AM HOSP Observed: 10/23/2018 Status: COMPLETED Source: [place] 12:[address] [facility] REPOSITORY Patient:Guerrero Wilson MRN: <[id number]> Height:6' .165[in shoes[(1.833 m) Weight:194 lb 6.4 oz (88.179 kg) Outpatient Medications as of 10/24/18: finasteride (PROSCAR) 5 mg tablet sildenafil, antihypertensive, (REVATIO) 20 mg tablet predniSONE (DELTASONE) 20 mg tablet predniSONE (DELTASONE) 10 mg tablet MULTIVITAMIN TAB Admission/Clinic Administered Medications as of 10/24/18: Patient has no admission medications. 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 My number was left for any concerns or questions. Neisha Drake LPN Progress Notes ([facility] MAIN CA 3): Rebecca Lopez RN, RN 09/27/2018 9:43 AM Signed Additional intake questions: Has the patient had nausea, vomiting, diarrhea, constipation, fatigue for > 1 week? None of the above Does the patient have a decreased appetite? No Does patient want to see a Site Manager? No (yes to any of above refer patient to schedulers for dietitian appointment) ) Does patient have any new or increased numbness or tingling of extremities? No Is patient interested in fertility information? No Does patient need any prescription refills? No Electronically Signed By: LAZARO Talavera MD 09/27/2018 12:18 PM Signed SURGICAL SERVICES HANDP SERVICE DATE: 09/27/2018 SERVICE TIME: 0900 PRIMARY CARE PHYSICIAN: Royce Springer MD Subjective CHIEF COMPLAINT: Pancreatic mass HISTORY OF PRESENT ILLNESS: Mr. Wilson is a 67 year old male who presents for pancreatic mass. Last week on Tuesday had some chills and rigors. No fevers. No abdominal pain. Malaise. Was not improving so went to the ER on Tuesday. Did not find any acute process and was discharged home. By Tuesday he was feeling better and today is back to his baseline. Not having any abdominal pain currently. No nausea or vomiting. No weight loss. FUNCTIONAL STATUS: Run a short distance (8.00 METs) PAST MEDICAL HISTORY Diagnosis Date - ACL tear Right knee, chronic - BPH with obstruction/lower urinary tract symptoms 08/17/2006 - ELEVATED PROSTATE SPECIFIC ANTIGEN 08/17/2006 - ERECTILE DYSFUNCTION 08/13/2005 - Family history of malignant neoplasm of gastrointestinal tract - Hypertrophy of prostate with urinary obstruction and other lower urinary tract symptoms (LUTS) 08/17/2006 - Obstructive jaundice 07/22/2018 - Other and unspecified hyperlipidemia - Septic shock(785.52) 2009 E. coli - STEMI (ST elevation myocardial infarction) (HCC) 12/30/2009 Septic myocarditis PAST SURGICAL HISTORY Procedure Laterality Date - COLONOS W/REM POLYP SNARE 08/10/16 small adenomatous polyp - 5 year follow up - COLONOSCOP W/ OR W/O [facility] SPEC 11/09/2002 Colonoscopy - COLONOSCOP W/ OR W/O [facility] SPEC 05/24/2008 Normal Colonoscopy - EGD EUS 07/24/2018 - ERCP 07/24/2018 - LEFT HEART CATH,PERCUTANEOUS 12/30/2009 Cardiac cath, L heart - PAST SURGICAL HISTORY OF 1984 vasectomy - PAST SURGICAL HISTORY OF 05/23/1998 right knee arthroscopy FAMILY HISTORY Problem Relation Age of Onset - Colon Cancer Mother dec. age 72, - Cancer Father Brain,dec. age 71 - Diabetes Father - None Sister - Cancer Maternal Grandfather - Clotting Disorder Sister DVT Social History Substance Use Topics - Smoking status: Former Smoker Years: 4.00 Types: Cigarettes Quit date: 10/10/1974 - Smokeless tobacco: Never Used Comment: Quit 1974 1-2 cig. daily - Alcohol use Yes Comment: rare beer, rare wine (Not in a hospital admission) No current hospital medications on file. ALLERGIES No Known Allergies COMPLETE REVIEW OF SYSTEMS: GENERAL: No weight loss, malaise or fevers RESPIRATORY: Negative for cough, hemoptysis, wheezing, COPD, dyspnea or shortness of breath CARDIOVASCULAR: Negative for chest pain, leg swelling, hypertension, CHF or palpitations MUSCULOSKELETAL: Negative for joint pain or swelling, back pain or muscle pain SKIN: Negative for lesions, rash, and itching PSYCH: Negative for sleep disturbance, mood disorder and recent psychosocial stressors NEURO: No history of headaches, syncope, paralysis, seizures or tremors Objective PHYSICAL EXAM: BP 122/74 Pulse 70 Temp (Src) 97.8 (Oral) Resp 20 Wt 194 lb 6.4 oz (88.2kg) Physical Exam Performed GENERAL: Alert, no distress, cooperative SKIN: Skin color, texture, turgor normal. No rashes or lesions. EYES: EOMI LUNGS: Non-labored breathing, chest rise symmetric CARDIAC: RRR ABDOMEN: S, NT, ND EXTREMITIES: WALTER spont NEURO: AAOx3, answering questions appropriately PULSES: 2+ radial DATA: Diagnostic tests reviewed for today's visit: Most recent labs and imaging results. Assessment/Plan 67 year old male with pancreatic mass, suspected inflammatory - Trial of steroids, 3 weeks of prednisone 30mg qd, followed by a taper of 20mg for 1 week and 10mg for the following week - Repeat CT and ERCP after the 3 week course of steroids - If the inflammatory mass has resolved, then will remove the stent - If the mass has not resolved, then will require a pancreaticoduodenectomy, this was discussed in detail with the patient. Medication and Non-Pharmacologic VTE Prophylaxis/Anticoagulants Approximately 40 minutes was spent with the patient, the majority of the time was spent counseling the patient and answering all of their questions VTE Prophylaxis: VTE prophylaxis appropriate SIGNATURE: Ara Michaels MD PATIENT NAME: Guerrero Wilson DATE: September 27, 2018 TIME: 10:12 AM PAGER/CONTACT #: [phone] LEAD ELECTROCARDIOGRAM Observed: 09/27/2018 Status: F Source: [place] 3:35 PM [facility] REPOSITORY [place] [facility] [address] [place] [id number] Lead EKG 09/22/18 0810 MR#: [id number] Acct: [id number] Name: GUERRERO WILSON Rep #: [id number] : 1950 67 From: Lior Chapman MD Attending Dr: Status: DEP ER Ordering Dr: Bart Louise MD Date: 09/22/18 Location: ED Sex: M C Admitted: Test Reason : WEAKNESS Blood Pressure : / mmHG Vent. Rate : 078 BPM Atrial Rate : 078 BPM P-R Int : 132 ms QRS Dur : 102 ms QT Int : 370 ms P-R-T Axes : 043 019 044 degrees QTc Int : 421 ms Normal sinus rhythm Normal ECG Confirmed by LIOR CHAPMAN MD ([id number]), editorial cartoonist ANGE TRIPATHI ([id number]) on 09/27/2018 3:35:23 PM Referred By: DC Confirmed By:LIOR CHAPMAN MD 09/27/18 1535 Date Lior Chapman MD CC: Bart Louise MD; Royce Springer MD Signed PROGRESS Observed: 09/27/2018 Status: COMPLETED Source: [place] 10:12 AM [facility] REPOSITORY HNO ID: [id number] Author: Ara Michaels Service: (none) Author Type: Physician Type: Progress Notes Filed: 09/27/2018 12:18 PM Note Text: SURGICAL SERVICES HANDP SERVICE DATE: 09/27/2018 SERVICE TIME: 0900 PRIMARY CARE PHYSICIAN: Royce Springer MD Subjective CHIEF COMPLAINT: Pancreatic mass HISTORY OF PRESENT ILLNESS: Mr. Wilson is a 67 year old male who presents for pancreatic mass. Last week on Tuesday had some chills and rigors. No fevers. No abdominal pain. Malaise. Was not improving so went to the ER on Tuesday. Did not find any acute process and was discharged home. By Tuesday he was feeling better and today is back to his baseline. Not having any abdominal pain currently. No nausea or vomiting. No weight loss. FUNCTIONAL STATUS: Run a short distance (8.00 METs) PAST MEDICAL HISTORY Diagnosis Date - ACL tear Right knee, chronic - BPH with obstruction/lower urinary tract symptoms 08/17/2006 - ELEVATED PROSTATE SPECIFIC ANTIGEN 08/17/2006 - ERECTILE DYSFUNCTION 08/13/2005 - Family history of malignant neoplasm of gastrointestinal tract - Hypertrophy of prostate with urinary obstruction and other lower urinary tract symptoms (LUTS) 08/17/2006 - Obstructive jaundice 07/22/2018 - Other and unspecified hyperlipidemia - Septic shock(785.52) 2009 E. coli - STEMI (ST elevation myocardial infarction) (HCC) 12/30/2009 Septic myocarditis PAST SURGICAL HISTORY Procedure Laterality Date - COLONOS W/REM POLYP SNARE 08/10/16 small adenomatous polyp - 5 year follow up - COLONOSCOP W/ OR W/O BRS SPEC 11/09/2002 Colonoscopy - COLONOSCOP W/ OR W/O BRSH SPEC 05/24/2008 Normal Colonoscopy - EGD EUS 07/24/2018 - ERCP 07/24/2018 - LEFT HEART CATH,PERCUTANEOUS 12/30/2009 Cardiac cath, L heart - PAST SURGICAL HISTORY OF 1984 vasectomy - PAST SURGICAL HISTORY OF 05/23/1998 right knee arthroscopy FAMILY HISTORY Problem Relation Age of Onset - Colon Cancer Mother dec. age 72, - Cancer Father Brain,dec. age 71 - Diabetes Father - None Sister - Cancer Maternal Grandfather - Clotting Disorder Sister DVT Social History Substance Use Topics - Smoking status: Former Smoker Years: 4.00 Types: Cigarettes Quit date: 10/10/1974 - Smokeless tobacco: Never Used Comment: Quit 1974 1-2 cig. daily - Alcohol use Yes Comment: rare beer, rare wine (Not in a hospital admission) No current hospital medications on file. ALLERGIES No Known Allergies COMPLETE REVIEW OF SYSTEMS: GENERAL: No weight loss, malaise or fevers RESPIRATORY: Negative for cough, hemoptysis, wheezing, COPD, dyspnea or shortness of breath CARDIOVASCULAR: Negative for chest pain, leg swelling, hypertension, CHF or palpitations MUSCULOSKELETAL: Negative for joint pain or swelling, back pain or muscle pain SKIN: Negative for lesions, rash, and itching PSYCH: Negative for sleep disturbance, mood disorder and recent psychosocial stressors NEURO: No history of headaches, syncope, paralysis, seizures or tremors Objective PHYSICAL EXAM: BP 122/74 Pulse 70 Temp (Src) 97.8 (Oral) Resp 20 Wt 194 lb 6.4 oz (88.2kg) Physical Exam Performed GENERAL: Alert, no distress, cooperative SKIN: Skin color, texture, turgor normal. No rashes or lesions. EYES: EOMI LUNGS: Non-labored breathing, chest rise symmetric CARDIAC: RRR ABDOMEN: S, NT, ND EXTREMITIES: WALTER spont NEURO: AAOx3, answering questions appropriately PULSES: 2+ radial DATA: Diagnostic tests reviewed for today's visit: Most recent labs and imaging results. Assessment/Plan 67 year old male with pancreatic mass, suspected inflammatory - Trial of steroids, 3 weeks of prednisone 30mg qd, followed by a taper of 20mg for 1 week and 10mg for the following week - Repeat CT and ERCP after the 3 week course of steroids - If the inflammatory mass has resolved, then will remove the stent - If the mass has not resolved, then will require a pancreaticoduodenectomy, this was discussed in detail with the patient. Medication and Non-Pharmacologic VTE Prophylaxis/Anticoagulants Approximately 40 minutes was spent with the patient, the majority of the time was spent counseling the patient and answering all of their questions VTE Prophylaxis: VTE prophylaxis appropriate SIGNATURE: Ara Michaels MD PATIENT NAME: Guerrero Wilson DATE: September 27, 2018 TIME: 10:12 AM PAGER/CONTACT #: [phone] CNOV Observed: 09/27/2018 Status: COMPLETED Source: [place] 10:10 AM [facility] REPOSITORY Office Visit (GENSCA) GUERRERO WILSON ([id number]) 1950 M Date Time Provider Department 09/27/18 10:10 AM ARA MICHAELS During your visit today, we recorded the following information about you: Temperature Pulse Respiration Blood pressure 97.8 degrees 70/minute 20/minute 122/74 Weight 88.2 kg Rebecca Lopez RN, RN 09/27/2018 9:43 AM Signed Additional intake questions: Has the patient had nausea, vomiting, diarrhea, constipation, fatigue for > 1 week? None of the above Does the patient have a decreased appetite? No Does patient want to see a Site Manager? No (yes to any of above refer patient to schedulers for dietitian appointment) ) Does patient have any new or increased numbness or tingling of extremities? No Is patient interested in fertility information? No Does patient need any prescription refills? No Electronically Signed By: LAZARO Talavera MD 09/27/2018 12:18 PM Signed SURGICAL SERVICES HANDP SERVICE DATE: 09/27/2018 SERVICE TIME: 0900 PRIMARY CARE PHYSICIAN: Royce Springer MD Subjective CHIEF COMPLAINT: Pancreatic mass HISTORY OF PRESENT ILLNESS: Mr. Wilson is a 67 year old male who presents for pancreatic mass. Last week on Tuesday had some chills and rigors. No fevers. No abdominal pain. Malaise. Was not improving so went to the ER on Tuesday. Did not find any acute process and was discharged home. By Tuesday he was feeling better and today is back to his baseline. Not having any abdominal pain currently. No nausea or vomiting. No weight loss. FUNCTIONAL STATUS: Run a short distance (8.00 METs) PAST MEDICAL HISTORY Diagnosis Date - ACL tear Right knee, chronic - BPH with obstruction/lower urinary tract symptoms 08/17/2006 - ELEVATED PROSTATE SPECIFIC ANTIGEN 08/17/2006 - ERECTILE DYSFUNCTION 08/13/2005 - Family history of malignant neoplasm of gastrointestinal tract - Hypertrophy of prostate with urinary obstruction and other lower urinary tract symptoms (LUTS) 08/17/2006 - Obstructive jaundice 07/22/2018 - Other and unspecified hyperlipidemia - Septic shock(785.52) 2009 E. coli - STEMI (ST elevation myocardial infarction) (HCC) 12/30/2009 Septic myocarditis PAST SURGICAL HISTORY Procedure Laterality Date - COLONOS W/REM POLYP SNARE 08/10/16 small adenomatous polyp - 5 year follow up - COLONOSCOP W/ OR W/O BRSH SPEC 11/09/2002 Colonoscopy - COLONOSCOP W/ OR W/O BRSH SPEC 05/24/2008 Normal Colonoscopy - EGD EUS 07/24/2018 - ERCP 07/24/2018 - LEFT HEART CATH,PERCUTANEOUS 12/30/2009 Cardiac cath, L heart - PAST SURGICAL HISTORY OF 1984 vasectomy - PAST SURGICAL HISTORY OF 05/23/1998 right knee arthroscopy FAMILY HISTORY Problem Relation Age of Onset - Colon Cancer Mother dec. age 72, - Cancer Father Brain,dec. age 71 - Diabetes Father - None Sister - Cancer Maternal Grandfather - Clotting Disorder Sister DVT Social History Substance Use Topics - Smoking status: Former Smoker Years: 4.00 Types: Cigarettes Quit date: 10/10/1974 - Smokeless tobacco: Never Used Comment: Quit 1974 1-2 cig. daily - Alcohol use Yes Comment: rare beer, rare wine (Not in a hospital admission) No current hospital medications on file. ALLERGIES No Known Allergies COMPLETE REVIEW OF SYSTEMS: GENERAL: No weight loss, malaise or fevers RESPIRATORY: Negative for cough, hemoptysis, wheezing, COPD, dyspnea or shortness of breath CARDIOVASCULAR: Negative for chest pain, leg swelling, hypertension, CHF or palpitations MUSCULOSKELETAL: Negative for joint pain or swelling, back pain or muscle pain SKIN: Negative for lesions, rash, and itching PSYCH: Negative for sleep disturbance, mood disorder and recent psychosocial stressors NEURO: No history of headaches, syncope, paralysis, seizures or tremors Objective PHYSICAL EXAM: BP 122/74 Pulse 70 Temp (Src) 97.8 (Oral) Resp 20 Wt 194 lb 6.4 oz (88.2kg) Physical Exam Performed GENERAL: Alert, no distress, cooperative SKIN: Skin color, texture, turgor normal. No rashes or lesions. EYES: EOMI LUNGS: Non-labored breathing, chest rise symmetric CARDIAC: RRR ABDOMEN: S, NT, ND EXTREMITIES: WALTER spont NEURO: AAOx3, answering questions appropriately PULSES: 2+ radial DATA: Diagnostic tests reviewed for today's visit: Most recent labs and imaging results. Assessment/Plan 67 year old male with pancreatic mass, suspected inflammatory - Trial of steroids, 3 weeks of prednisone 30mg qd, followed by a taper of 20mg for 1 week and 10mg for the following week - Repeat CT and ERCP after the 3 week course of steroids - If the inflammatory mass has resolved, then will remove the stent - If the mass has not resolved, then will require a pancreaticoduodenectomy, this was discussed in detail with the patient. Medication and Non-Pharmacologic VTE Prophylaxis/Anticoagulants Approximately 40 minutes was spent with the patient, the majority of the time was spent counseling the patient and answering all of their questions VTE Prophylaxis: VTE prophylaxis appropriate SIGNATURE: Ara Michaels MD PATIENT NAME: Guerrero Wilson DATE: September 27, 2018 TIME: 10:12 AM PAGER/CONTACT #: [phone] Referring Provider: ROYCE SPRINGER [[id number]] Allergies As of Date: 09/27/2018 (No Known Allergies) Date Reviewed: 09/27/2018 Reviewed by: Ara Michaels - Fully Assessed Reason for Visit: Established Patient [175] Primary Visit Diagnosis:Pancreatic mass [K86.9] Other Visit Diagnosis:Obstructive jaundice [K83.8] Order(s):predniSONE (DELTASONE) 10 mg tabletTake 3 tablets by mouth once daily for 21 days.Disp: 63 tabletRfl: 0 [START ON 10/19/2018] predniSONE (DELTASONE) 20 mg tabletTake 1 tablet by mouth once daily for 7 days.Disp: 7 tabletRfl: 0 [START ON 10/26/2018] predniSONE (DELTASONE) 10 mg tabletTake 1 tablet by mouth once daily for 7 days.Disp: 7 tabletRfl: 0 Prescriptions as of 09/27/2018 Sig: FINASTERIDE 5 MG TABLET Take 1 tablet by mouth once d* * MULTIVITAMIN TABLET Take one(1) tablet daily. SILDENAFIL (ANTIHYPERTENSIVE)* Take 1 tablet by mouth as dir* PREDNISONE 10 MG TABLET Take 3 tablets by mouth once * PREDNISONE 10 MG TABLET Take 1 tablet by mouth once d* PREDNISONE 20 MG TABLET Take 1 tablet by mouth once d* Problem List As Of Date 09/27/2018 Noted Resolved Sebaceous cyst [L72.3] INVALID FOR*09/27/2011 Pure hypercholesterolemia [E78.00] INVALID FOR* More... Unspecified disorder of prostate [N42.9] INVALID FOR*09/27/2011 Erectile dysfunction [N52.9] INVALID FOR*12/15/2017 BPH with obstruction/lower urinary tract sympto*INVALID FOR* More... ELEVATED PROSTATE SPECIFIC ANTIGEN [R97.20] INVALID FOR* FAMILY HX COLON CANCER [Z80.0] INVALID FOR* More... 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 Prostate mass [N42.9] INVALID FOR* More... Pancreatic mass [K86.9] INVALID FOR* More... Visit Notes: >> Rebecca (Lazaro) LAZARO Lopez TueSep 27, 2018 9:42 AM Status: Signed Additional intake questions: Has the patient had nausea, vomiting, diarrhea, constipation, fatigue for > 1 week? None of the above Does the patient have a decreased appetite? No Does patient want to see a Site Manager? No (yes to any of above refer patient to schedulers for dietitian appointment) ) Does patient have any new or increased numbness or tingling of extremities? No Is patient interested in fertility information? No Does patient need any prescription refills? No Electronically Signed By: Rebecca Lopez RN Prescriptions ordered this encounter Disp Refills Start End PREDNISONE 10 MG TABLET 63 t* 0 09/27/2018 10/18/2018 Class: Print RX Route: ORAL Sig: Take 3 tablets by mouth once daily for 21 days. PREDNISONE 20 MG TABLET 7 ta* 0 10/19/2018 10/26/2018 Class: Print RX Route: ORAL Sig: Take 1 tablet by mouth once daily for 7 days. PREDNISONE 10 MG TABLET 7 ta* 0 10/26/2018 11/02/2018 Class: Print RX Route: ORAL Sig: Take 1 tablet by mouth once daily for 7 days. Encounter Status:Closed by ARA MICHAELS MD on 09/27/18 DISCHARGE INSTRUCTION Observed: 09/22/2018 Status: F Source: [place] 4:14 PM [facility] REPOSITORY [place] Medical Records Department [address] [place] [address] Discharge Instruction 09/22/18 1122 MR#: [id number] Acct: [id number] Name: GUERRERO WILSON Rep #: [id number] : 1950 67 From: Bart Louise MD PCP: Royce Springer MD Status: DEP ER ED Disposition - Plan for ED Patient: Chief Complaint: Weakness Instructions: ED Weakness [facility] Referrals: Royce Springer MD [Primary Care Provider] - Additional Instructions: also follow up with your [facility] doctor as planned. What to do if you have Problems For any increased pain, shortness of breath, bleeding, nausea or vomiting, chest pain, or any unexpected problems, contact your Primary Care Provider. Call [facility] ([phone]) or report to the closest Emergency Room. Call 911 if necessary. 09/22/18 1614 <Electronically signed by Bart Louise MD> Date Bart Louise MD Cosigner Signature (If Indicated): Date CC: Royce Springer MD EMERGENCY DEPARTMENT Observed: 09/22/2018 Status: F Source: [place] SUMMARY 4:14 PM [facility] REPOSITORY [place] Medical Records Department [address] [place] [address] Emergency Department Summary 09/22/18 0853 MR#: [id number] Acct: [id number] Name: GUERRERO WILSON Rep #: [id number] : 1950 67 From: Bart Louise MD PCP: Royce Springer MD Status: DEP ER - ER Visit Summary Date of Service: 09/22/18 Chief Complaint: No energy History of Present Illness: The patient is a 67 M who has a recent past medical history of a pancreatic mass and dilated bile ducts. He was seen at this emergency department in July and transferred to the [facility] for abnormal findings on his CT and a possible pancreatic mass. He had a biopsy performed at that time. It was benign but they are still not sure what is causing his issues. He had a stent placed in his bile duct at that time as well. He followed up after 2 months, on this past Tuesday. He had a repeat endoscopy and biopsy. Results are still pending from that. Over the past 3 days he reports decreased energy, chills, low-grade fevers, myalgias, and fatigue. No specific symptoms. No chest pain or shortness of breath. No cough. No abdominal pain or diarrhea. He has not had a bowel movement for a few days. No urinary symptoms. No rashes. No joint pains. Physical Examination: Blood pressure 97/60. Heart rate 93 and respiratory rate 24. Afebrile. 94% on room air. The patient appears to show some generalized fatigue and weakness but is otherwise in no acute distress. He is alert and oriented. Skin appears unremarkable. Heart regular rate and rhythm. Lungs clear. Abdomen soft and nontender. Test Results: EKG showed sinus rhythm at a rate of 78. No sign of acute ischemia or infarction pattern. Platelets 121, down from 200 a couple months ago. Otherwise CBC normal. Metabolic panel shows elevated liver enzymes, but they are all better from when he was here previously. Lipase normal. Coags normal. Troponin and lactate normal. Urinalysis, chest x-ray, CT pending. Emergency Department Course and Treatment: Patient has generalized and fairly vague symptoms. He could be coming down with a viral illness. I am also concerned about complications from his recent procedure and his prior hepatobiliary disease. I did consider sepsis, and a broad workup was pursued. He did not technically meet sepsis criteria, and so antibiotics were initially held. Will reassess. White count normal. Platelets slightly low at 121. Coags normal. No bleeding or clotting suspected. Hepatic panel is all improved since his previous evaluation. I do not have a baseline for him. Total bilirubin 1.7, alkaline phosphatase 193, ALT 97, AST 76. Nothing significantly abnormal. Urinalysis unremarkable. No sign of infection. Troponin and lactate normal. Cultures pending. Chest x-ray showed 6 rib anterior deformity. Left base atelectasis versus scarring. I reviewed his x-ray. There was nothing concerning there that would explain his symptoms. CT showed pneumobilia consistent with his history of a stent and his procedure. The stent is fluid-filled. He has some pancreatic changes which are stable. Increased fecal material noted. Enlarged prostate noted. No sign of anything to explain his symptoms. No sign of post procedure complications. Patient felt better on reevaluation. No further chills. I am not sure what is causing his symptoms. He is not septic. I cannot identify a complication from his procedure. He may be coming down with a viral illness. I advised him to rest and stay hydrated. I believe he is appropriate for discharge. He has follow-up with his doctor. If he has new or worsening issues or difficulty following up, he will return right away. I did page his [facility] doctor, Dr. Johnson but at the time of this dictation, I have not heard back. Treatment Plan: As above Disposition: Discharge Impression: 1. Generalized fatigue This note was generated with Advisity dictation software. It may contain incorrect words, spelling, and punctuation that were not noted in review of the chart prior to signing ED Disposition - Plan for ED Patient: Chief Complaint: Weakness Instructions: ED Weakness [facility] Referrals: Royce Springer MD [Primary Care Provider] - Additional Instructions: also follow up with your [facility] doctor as planned. What to do if you have Problems For any increased pain, shortness of breath, bleeding, nausea or vomiting, chest pain, or any unexpected problems, contact your Primary Care Provider. Call [facility] ([phone]) or report to the closest Emergency Room. Call 911 if necessary. 09/22/18 3984 <Electronically signed by Bart Louise MD> Date Bart Louise MD Cosigner Signature (If Indicated): Date CC: Royce Springer MD URINALYSIS, COMPLETE Collected: 09/22/2018 Status: F Source: [place] 9:45 AM [facility] REPOSITORY Order Comment: How was Urine Obtained? CLEAN CATCH TYPE CODE TESTS RESULT OUT OF RANGE REFERENCE UNITS LAB L400.3000 Yellow COLOR Normal Yellow LAB L400.3050 Clear Normal CLARITY Clear LAB L400.3200 Normal mg/dl Normal GLUCOSE, UR Normal LAB L400.3300 Negative mg/dL Normal BILIRUBIN URINE Negative LAB L400.3400 Negative mg/dl Normal KETONE UR Negative LAB L400.3465 1.002-1.030 Normal SP.GR. DIPSTX 1.010 LAB L400.3550 5.0 - 8.0 pH UR Normal 6.0 LAB L400.3600 Negative mg/dl High PROT 15 DIPSTX LAB L400.3700 Normal mg/dl High 1 UROBILI LAB L400.3750 Negative Normal NITRITE UR Negative LAB L400.3780 Negative /ul High OCCULT BLOOD-UR 250 LAB L400.3800 Negative /ul LEUK Normal ESTERASE Negative LAB L400.4050 0-5 /hpf WBC 0 Normal SEEN LAB L400.4100 0-5 /hpf Normal RBC-UA 0-5 SEEN LAB L400.4150 0-5 /hpf SQUAM 0 Normal EPI SEEN LAB L400.4300 None Seen /hpf 0 Normal BACTERIA SEEN LAB L400.4350 <or=2+ /hpf 0 Normal MUCUS, URINE SEEN Performed By: #### L400.0001 #### [facility] [place], [address] Observed: 09/22/2018 Status: F Source: [place] CULTURE, URINE 9:45 AM [facility] REPOSITORY Urine Culture Below infection level. ORGANISM 1: GPC Poss Enterococcus sp Combes Count <1000 Performed By: #### M100.0650 #### [facility] [address] [place] [address], [id number] Observed: 09/22/2018 Status: F Source: [place] CULTURE, BLOOD (WB) 8:30 AM [facility] REPOSITORY BC No growth in 5 days. Performed By: #### M200.1000 #### [facility] [address] [place] [address], [phone] ABDOMEN/PELVIS W IV CONT Observed: 09/22/2018 Status: F Source: [place] ONLY 8:02 AM [facility] REPOSITORY [place] Imaging Services [address] [place] [id number] Abdomen/Pelvis W IV Cont ONLY MR#: [id number] Acct: [id number] Name: GUERRERO WILSON Rep #: [id number] : 1950 M 67 From: Rico Skinner MD PCP: Royce Springer MD Status: REG ER Study: Abdomen/Pelvis W IV Cont ONLY Date of Exam: 09/22/18 Exam# [id number] Ordering Dr: Bart Louise MD STUDY: CT ABDOMEN AND PELVIS WITH CONTRAST REASON FOR EXAM: Male, 67 years old. Recent endoscopic pancreatic biopsy with stent placement. The patient now presents with constipation and abdominal pain. RADIATION DOSAGE (If Supplied By Facility): CTDIvol = ( 10.78 ) mGy, DLP = ( 685.44 ) mGycm TECHNIQUE: Transaxial images were obtained from the dome of the diaphragm to the symphysis pubis without oral contrast. 100 ml of Isovue 300 contrast was administered. Sagittal and coronal images were reconstructed. Individualized dose optimization techniques were used for this CT. COMPARISON: Comparison is made with prior examination dated July 22, 2018. FINDINGS: Stable minimal degree of increased markings at the lung bases suggestive of bibasilar atelectasis and/or scarring. The visualized portions of the heart are within normal limits. There is evidence of a pneumobilia. This is in keeping with the presence of a stent within the common bile duct. A biliary stent is seen within the common bile duct. The distal tip is within the second portion of the duodenum. The lumen of the stent shows evidence of increased attenuation. This may represent either fluid or soft tissue. The gallbladder is not distended. There is mild splenomegaly. There are pancreatic calcifications in the distribution of the ducts consistent with chronic pancreatitis. Stable mild prominence of the uncinate processes of the pancreas. Normal bilateral adrenal glands. Normal right kidney. Normal left kidney. There is a small hiatal hernia. Normal small intestine. A large amount of fecal material is seen in the left hemicolon as well as in the rectosigmoid colon. The appendix is visualized and appears normal. Normal abdominal aorta. Normal inferior vena cava. Normal retroperitoneum. Normal urinary bladder. There is inhomogeneous enlargement of the prostate gland. This measures 6 cm x 4.7 cm. This causes indentation at the bladder base. Normal abdominal wall. There are degenerative changes of the visualized lumbar spine. CT/Abdomen/Pelvis W IV Cont ONLY IMPRESSION: Pneumobilia. A stent is seen within the common bile duct with the distal aspect within the second portion of the duodenum. The lumen of the stent is fluid-filled. Stable pancreatic calcifications suggestive of chronic pancreatitis was stable prominence of the uncinate process of the pancreas. Large amount of fecal material is seen in the rectosigmoid colon as well as in the left hemicolon. Inhomogeneous prostatic enlargement. Electronically Signed: Rico Skinner MD at 9:25 EST Tel [phone], Service support , CC: Bart Louise MD; Royce Springer MD Road Freight Conductor: Signed CHEST 1 VIEW Observed: 09/22/2018 Status: F Source: [place] (PORTABLE) 8:02 AM [facility] REPOSITORY [place] Imaging Services [address] [place] [address] Chest 1 View (Portable) MR#: [id number] Acct: [id number] Name: GUERRERO WILSON Rep #: [id number] : 1950 M 67 From: Rico Skinner MD PCP: Royce Springer MD Status: REG ER Study: Chest 1 View (Portable) Date of Exam: 09/22/18 Exam# [id number] Ordering Dr: Bart Louise MD STUDY: X-RAY CHEST REASON FOR EXAM: Male, 67 years old. 2 day history of chills and weakness. TECHNIQUE: Single AP portable view of the chest. COMPARISON: None. FINDINGS: EKG electrodes are seen. Mild elevation of the right hemidiaphragm. Minimal increased linear markings at the left lung base suggestive of linear atelectasis and/or scarring. No infiltrate is seen. There is no demonstrated pleural abnormality. Normal size heart. Normal mediastinum and jen. Normal visualized pulmonary arteries. Normal visualized aortic arch and descending thoracic aorta. There is a mild levoscoliosis of the thoracic spine. I suspect deformity of the anterior aspect of the left sixth rib. There is no demonstrated abnormality of the visualized soft tissue structures of the upper abdomen. RAD/Chest 1 View (Portable) IMPRESSION: Findings suggestive of deformity of the anterior aspect of the left sixth rib. Mild increased markings at the left lung base suggestive of linear atelectasis and/or scarring. Electronically Signed: Rico Skinner MD at 9:27 EST Tel [phone], Service support , CC: Bart Louise MD; Royce Springer MD Road Freight Conductor: Signed CBC W/DIFF, AUTOMATED Collected: 09/22/2018 Status: F Source: [place] 8:00 AM [facility] REPOSITORY TYPE CODE TESTS RESULT OUT OF RANGE REFERENCE UNITS LAB L100.1000 4.4-11.0 K/mm3 Normal WBC 7.9 LAB L100.1200 4.6-6.2 M/mm3 Normal RBC 5.20 LAB L100.1300 13.0-16.5 g/dl Normal HGB 16.4 LAB L100.1400 40-54 % Normal HCT 46.3 LAB L100.1500 80-94 fL Normal MCV 89.0 LAB L100.1600 27.0-32.0 pg Normal MCH 31.5 LAB L100.1700 32-36 g/gl Normal MCHC 35.4 LAB L100.1810 11.6-14.6 % Normal RDW CV 12.5 LAB L100.1820 35.1-43.9 fl Normal RDW SD 39.9 LAB L100.1900 150-450 K/mm3 Low PLT 121 LAB L100.2000 6.2-12.0 fl Normal MPV 8.4 LAB L100.2100 47-70 % High NEUT% 84.1 LAB L100.2200 19-41 % Low LY% 8.2 LAB L100.2300 0-10 % Normal MONO% 7.3 LAB L100.2400 0-5 % Normal EO% 0.0 LAB L100.2500 0-1 % Normal BASO% 0.1 LAB L100.2550 0.0-0.9 % Normal IM GRAN % 0.300 Result Comment: IG% - Immature Granulocytes (promyelocytes, myelocytes and metamyelocytes) > 1% indicates that a LEFT SHIFT is Present. LAB L100.2620 2.0-7.7 X10 3/uL Normal Absolute Neut 6.7 LAB L100.2720 0.83-4.51 X10 3/ul Low Absolute Lymph 0.65 Performed By: #### L100.0100 #### [facility] [address] [place], [place], [address] PROTHROMBIN TIME W/INR Collected: 09/22/2018 Status: F Source: C[place] 8:00 AM [facility] REPOSITORY TYPE CODE TESTS RESULT OUT OF RANGE REFERENCE UNITS LAB L300.4150 11.7-14.9 SECONDS Normal PROTIME 14.1 LAB L300.4200 Normal INR 1.1 Performed By: #### L300.3900, L300.4310 #### [facility] [address] [place], [place], [address] PARTIAL THROMBOPLAST Collected: 09/22/2018 Status: F Source: [place] TIME 8:00 AM [facility] REPOSITORY TYPE CODE TESTS RESULT OUT OF RANGE REFERENCE UNITS LAB L300.4310 24.1-36.2 Seconds Normal PTT 26.3 Performed By: #### L300.3900, L300.4310 #### [facility] [address] [place], [place], [address] COMPREHENSIVE METABOLIC Collected: 09/22/2018 Status: F Source: [place] PROFIL 8:00 AM [facility] REPOSITORY TYPE CODE TESTS RESULT OUT OF RANGE REFERENCE UNITS LAB L501.0100 74-106 mg/dL High GLU 140 Result Comment: Fasting Glucose result greater than or equal to 126 mg/dL suggests DIABETES MELLITUS per A.D.A. criteria. Please note revised GLUCOSE reference range effective 2017. LAB L501.1000 7-18 mg/dL Normal BUN 17 LAB L501.1100 0.70-1.30 mg/dL Normal CREAT,SERUM 0.93 Result Comment: The validity of the calculated GFR AND GFRAA in patients over 70 years has not been determined. Clinical correlation is essential. LAB L501.1110 >60 mL/min Normal EST GFR 86 Result Comment: Non- GFR Calc LAB L501.1115 >60 mL/min Normal EST GFR - AA 104 Result Comment: GFR Calc LAB L501.1255 ml/min Normal Estimated CRCL 82.09 LAB L501.1300 10-20 RATIO Normal BUN/CRE 18.2 LAB L501.1500 6.4-8. g/dL Normal 2 T PROT 7.2 LAB L501.1800 3.2-5. g/dL Low 0 ALB 3.1 LAB L501.1950 2.2-4. g/dL Normal 2 GLOB 4.1 LAB L501.2000 0.9-2. RATIO Low 4 A/G 0.8 LAB L501.2200 8.5-10 mg/dL Low .1 CA 8.4 LAB L501.4100 15-37 U/L High AST 76 LAB L501.4305 45-117 U/L High ALK P 193 LAB L501.4405 16-61 U/L High ALT 97 LAB L501.4600 0.20-1 mg/dL High .00 T BILI 1.70 LAB L501.5300 136-14 mmol/L Normal 5 NA 137 LAB L501.5600 3.5-5. mmol/L Normal 1 K 3.6 LAB L501.5900 98-107 mmol/L Normal CL 103 LAB L501.6100 21.0-3 mmol/L Normal 2.0 CO2 24.0 LAB L501.6200 5-15 Normal GAP 10 Performed By: #### L500.4050, L501.2450, L501.4010 #### [facility] [address] [place], [address] LIPASE Collected: 09/22/2018 Status: F Source: CASCADE 8:00 AM [facility] REPOSITORY TYPE CODE TESTS RESULT OUT OF RANGE REFERENCE UNITS LAB L501.2450 73-393 U/L Normal LIPASE 134 Performed By: #### L500.4050, L501.2450, L501.4010 #### [facility] [address] [place], [address] TROPONIN-I Collected: 09/22/2018 Status: F Source: ELVER 8:00 AM [facility] REPOSITORY TYPE CODE TESTS RESULT OUT OF RANGE REFERENCE UNITS LAB L501.4010 <0.045 ng/mL Normal < 0.015 TROPONIN-I Result Comment: TROPONIN-I EXPECTED VALUES <0.045 Negative 0.045 - 0.590 Consistent with Cardiac Damage > OR = 0.600 Critical Value Not every elevated troponin is indicative of MD. These values should be used with clinical judgement in examining the patient's clinical picture for diagnosis. To establish a diagnosis of MD versus myocardial injury, there must be a demonstrated rise and/or fall in the troponin values, in addition to ischemic symptoms, EKG changes, new regional wall motion abnormality, and/or angiographical evidence. PLEASE NOTE: REFERENCE RANGES EDITED 18 Performed By: #### L500.4050, L501.2450, L501.4010 #### [facility] [address] [place], [address] LACTIC ACID Collected: 09/22/2018 Status: F Source: [place] 8:00 AM [facility] REPOSITORY Order Comment: Yes/No query for Sepsis Lactate Rule Y TYPE CODE TESTS RESULT OUT OF RANGE REFERENCE UNITS LAB L503.6005 0.4-2.0 mmol/L Normal LACTIC ACID 1.7 Performed By: #### L503.6005 #### [facility] [address] [place], [address] Observed: 09/22/2018 Status: F Source: ELVER CULTURE, BLOOD (WB) 8:00 AM [facility] REPOSITORY BC No growth in 5 days. Performed By: #### M200.1000 #### [facility] [address] [place], [address] ANES POST Observed: 09/18/2018 Status: COMPLETED Source: [place] 3:51 PM [facility] REPOSITORY HNO ID: [id number] Author: Jeremy Kruger Service: Anesthesiology Author Type: Physician Type: Anesthesia PostOp Filed: 09/18/2018 3:56 PM Note Text: POST ANESTHESIA EVALUATION NOTE SERVICE DATE: 09/18/2018 SERVICE TIME: 3:55 PM : 1950 Vitals: Vital signs stable. Please refer to business administration program chair. POST ANES STATUS: No apparent anesthetic complications. The patient is appropriately hydrated with stable respiratory and cardiovascular status. Patient has safe and adequate airway control. The patient has appropriate pain relief and no significant post operative nausea or vomiting. The patient has achieved baseline mental status. Intra-Operative Events: No Significant Anesthesia Events Further assessment by Anesthesia Service: None Other Remarks: SIGNATURE: Jeremy Kruger MD PATIENT NAME: Guerrero Wilson DATE: September 18, 2018 TIME: 3:55 PM PAGER/CONTACT #: [phone] SURGICAL PATHOLOGY Observed: 09/18/2018 Status: F Source: [place] 2:[address] [facility] REPOSITORY Specimen originated from [facility] Specimen #: [id number] Submitting Physician: LUIS JOHNSON M.D. FINAL DIAGNOSIS Pancreas, head, biopsy - Pancreatic parenchyma with no significant diagnostic alterations. - Abundant blood and strips of duodenal epithelium. - Negative for malignancy. AEB/BARBRA/bernarda/09/19/18 Marlee Laura M.D. (Electronic Signature) SPECIMEN SUBMITTED A: PANCREATIC HEAD MASS FNB, BIOPSY CLINICAL DATA HX JAUNDICE R/O CANCER GROSS DESCRIPTION A. Received in formalin are multiple segments of cylindrical tissue aggregating to 2.1 x 0.4 x 0.1 cm, red-brown and of a soft and friable consistency. Totally submitted in formalin in one cassette. Gross examination performed at [facility], [address] [place] [address] 09/18/2018 7:04:45 PM Date of Report: 09/20/2018 Date of Procedure: 09/18/2018 Date of Receipt: 09/18/2018 Submitted by: LUIS JOHNSON M.D. Location: [facility] Diagnostic interpretation performed at [facility], [address] [place] [address], [place] [address]. CYTOLOGY Observed: 09/18/2018 Status: F Source: [place] 2:[address] [facility] REPOSITORY Specimen originated from [facility] Specimen #: [id number] Submitting Physician: LUIS JOHNSON M.D. SPECIMEN SUBMITTED A: PANCREATIC HEAD MASS, FINE NEEDLE ASPIRATE (THINPREP,SMEARS AND CELL BLOCK) FINAL DIAGNOSIS A. PANCREATIC HEAD MASS, FINE NEEDLE ASPIRATE (THINPREP,SMEARS AND CELL BLOCK) Negative for malignant cells. Benign acinar cells present. Marlene Linn MD (Electronic Signature) CLINICAL DATA FNB Pancreatic head Mass ADEQUACY INTERPRETATION DIFF QUIK RAPID READ #1,2 Non-diagnostic #3-5 Pancreatic tissue / Jose Each letter in the above intra-procedural assessment refers to a unique site. The specific site is indicated in the final diagnosis portion of the report. Each number in this assessment references a discrete evaluation episode. Intra-procedural assessment performed at [facility], [address] [place] [address]. [place] [address] GROSS DESCRIPTION 30cc clear pink CytoLyt with 10 smears (5 Diff Quik and 5 pap stained) STAINS A: PANCREATIC HEAD MASS, FINE NEEDLE ASPIRATE (THINPREP,SMEARS AND CELL BLOCK) SMEARS RECEIVED x 10, THIN PREP Non-[employer], CELL BLOCK, H&E, Initial Date of Report: 09/19/2018 Date of Procedure: 09/18/2018 Date of Receipt: 09/18/2018 Submitted by: LUIS JOHNSON M.D. Additional Physician(s): ARA MICHAELS Location: Q31 Diagnostic interpretation performed at [facility], [address] [place] [address]. HOSP Observed: 08/11/2018 Status: COMPLETED Source: [place] 12:00 AM [facility] REPOSITORY Patient:Guerrero Wilson MRN: <[id number]> Height:6' .165[in shoes[(1.833 m) Weight:No patient weight recorded within the last 30 days. Outpatient Medications as of 09/18/18: finasteride (PROSCAR) 5 mg tablet sildenafil, antihypertensive, (REVATIO) 20 mg tablet MULTIVITAMIN TAB Admission/Clinic Administered Medications as of 09/18/18: Patient has no admission medications. 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 Lab Values No results within the last 30 days for the following basenames: K,HCT No progress notes entered within the past 30 days CEA Collected: 08/02/2018 Status: F Source: [place] 9:49 AM [facility] REPOSITORY TYPE CODE TESTS RESULT OUT OF RANGE REFERENCE UNITS LAB CEA 0.0-2.9 ng/mL CEA 1.7 Result Comment: Test analyzed by the Leida DxI method. Performed By: #### CEA, CA199, CHROMA #### [facility] [place] [address] CA 19-9 Collected: 08/02/2018 Status: F Source: [place] 9:49 AM [facility] REPOSITORY TYPE CODE TESTS RESULT OUT OF RANGE REFERENCE UNITS LAB CA199 <36 U/mL CA 19-9 31 Result Comment: Test analyzed by the Leida DxI method. Performed By: #### CEA, CA199, CHROMA #### [facility] [address] [place], [place] [address] CHROMOGRANIN A Collected: 08/02/2018 Status: F Source: [place] 9:49 AM [facility] REPOSITORY TYPE CODE TESTS RESULT OUT OF REFERENCE UNITS RANGE LAB CHROMA <98 ng/mL Chromogranin A 42 Result Comment: This test is performed using the Payoff [id number]-KF kit. Results obtained with different methods or kits cannot be used interchangeably. This test was developed and its performance characteristics determined by [facility]'s [facility] [place] ([facility]). It has not been cleared or approved by the FDA. [facility] is regulated under CLIA as qualified to perform high-complexity testing. This test is used for clinical purposes. It should not be regarded as investigational or for research. Performed By: #### CEA, CA199, CHROMA #### [facility] [place] [address] [place], [place] [address] CNOV Observed: 08/02/2018 Status: COMPLETED Source: [place] 9:10 AM [facility] REPOSITORY Office Visit (CHELA) GUERRERO WILSON ([id number]) 1950 M Date Time Provider Department 08/02/18 9:10 AM ARA MICHAELS During your visit today, we recorded the following information about you: Temperature Pulse Respiration Blood pressure 97.8 degrees 96/minute 20/minute 115/69 Weight Height 86.7 kg 1.833 m Rebecca Lopez, RN, RN 08/02/2018 8:46 AM Signed Additional intake questions: Has the patient had nausea, vomiting, diarrhea, constipation, fatigue for > 1 week? None of the above Does the patient have a decreased appetite? No Does patient want to see a Site Manager? No (yes to any of above refer patient to schedulers for dietitian appointment) ) Does patient have any new or increased numbness or tingling of extremities? No Is patient interested in fertility information? No Does patient need any prescription refills? No Electronically Signed By: LAZARO Talavera MD 08/06/2018 9:59 AM Signed An irregular mass was identified in the pancreatic head. The mass was ?hypoechoic and characterized by numerous shadowingc calcifications?and few anechoic spaces. The mass measured 22 mm by 17 mm in maximal cross-sectional diameter. The endosonographic borders were poorly-defined. An intact interface was seen between the mass and the superior mesenteric artery, celiac trunk, hepatic artery, portal vein, superior mesenteric vein and splenoportal confluence suggesting ?a lack of invasion. Fine needle aspiration for cytology was?performed. INITIAL PANCREATIC CANCER PATIENT NAME: Guerrero Wilson DATE of SERVICE: 08/06/2018 TIME of SERVICE: 9:40 AM PCP: Royce Springer MD This consult was requested by Kim Carranza for evaluation of pancreatic mass. My final recommendations will be communicated to the requesting health care provider by way of the shared medical record or postal services. HPI: Mr. Wilson is a 67 year old male who presents for a pancreatic head mass causing painless obstructive jaundice. Incidental- No Jaundice-Yes Noted to have dark urine and light stools on 07/20. His noted to be jaundiced on 07/22 when they went out in the sunlight Went to OSH where they ordered labs and found to have elevated LFTs. He was not having any abdominal pain. He underwent an ERCP with stent placement and an EUS with biopsy (07/24). Biopsies of the pancreatic head mass were negative for malignancy and showed chronic inflammation. They stained negative for IgG4. His jaundice resolved. He is still not having any abdominal pain. He has neverhad pancreatitis before and has no family history of pancreatitis. He is a prior smoker and drinks occasional EtOH. He has no blood in his stool and denies CP or SOB. Of note, the patient had an episode of dark urine in November and wasn't feeling well, stating he was tired more than normal. He passed out at a restaurant and taken to the ER where he was found to be dehydrated and they sent him home. At that time he was not having any abdominal pain and denies being jaundiced or having acholic stools. He had a mother who from colon cancer at 71 and a father that had benign brain tumors. WORKUP: ERCP Yes intrahepatic ductal dilation Yes bile duct stricture Yes distal PD dilation NA sphincterotomy Yes stent Yes Plastic brushings No EUS Yes 2017 mass size [id number] Location uncinate vessel invasion/abutment: None lymph node No CT Yes 2017 mass size 12 mm location uncinate vessel involvement portal vein (<180degrees) Arterial: SMA: No contact Celiac: No contact MERYL:No contact Splenic artery: No Contact Venous: MPV: Attenuation or Stranding SMV: No Contact Splenic Vein: No Contact Venous collaterals present: No Contiguous Organ Involvement: No Lymph node No Liver Lesions: No Location n/a Metastases No ascites No venous thrombosis No Pathology/Cytology: pancreas Chronic inflammation PAST MEDICAL HISTORY PAST MEDICAL HISTORY Diagnosis Date - ACL tear Right knee, chronic - BPH with obstruction/lower urinary tract symptoms 08/17/2006 - ELEVATED PROSTATE SPECIFIC ANTIGEN 08/17/2006 - ERECTILE DYSFUNCTION 08/13/2005 - Family history of malignant neoplasm of gastrointestinal tract - Hypertrophy of prostate with urinary obstruction and other lower urinary tract symptoms (LUTS) 08/17/2006 - Obstructive jaundice 07/22/2018 - Other and unspecified hyperlipidemia - Septic shock(785.52) 2009 E. coli - STEMI (ST elevation myocardial infarction) (HCC) 12/30/2009 Septic myocarditis PAST SURGICAL HISTORY PAST SURGICAL HISTORY Procedure Laterality Date - COLONOS W/REM POLYP SNARE 08/10/16 small adenomatous polyp - 5 year follow up - COLONOSCOP W/ OR W/O BRS SPEC 11/09/2002 Colonoscopy - COLONOSCOP W/ OR W/O BRSH SPEC 05/24/2008 Normal Colonoscopy - EGD EUS 07/24/2018 - ERCP 07/24/2018 - LEFT HEART CATH,PERCUTANEOUS 12/30/2009 Cardiac cath, L heart - PAST SURGICAL HISTORY OF 1985 vasectomy - PAST SURGICAL HISTORY OF 05/23/1998 right knee arthroscopy FAMILY HISTORY FAMILY HISTORY Problem Relation Age of Onset - Colon Cancer Mother dec. age 72, - Cancer Father Brain,dec. age 71 - Diabetes Father - None Sister - Cancer Maternal Grandfather - Clotting Disorder Sister DVT Pancreatic Cancer- No Colon Cancer- Yes Breast Cancer- No Pancreatitis- No SOCIAL HISTORY Social History Substance Use Topics - Smoking status: Former Smoker Years: 4.00 Types: Cigarettes Quit date: 10/10/1974 - Smokeless tobacco: Never Used Comment: Quit 1974 1-2 cig. daily - Alcohol use Yes Comment: rare beer, rare wine REVIEW OF SYSTEMS GENERAL: No weight loss, malaise or fevers RESPIRATORY: Negative for cough, hemoptysis, wheezing, COPD, dyspnea or shortness of breath CARDIOVASCULAR: Negative for chest pain, leg swelling, hypertension, CHF or palpitations GI: No nausea, vomiting, or diarrhea PHYSICAL EXAM: General Appearance: Well appearing, alert, in no acute distress, well-hydrated, well nourished.. Skin: Skin color, texture, turgor normal, no suspicious rashes or lesions, no jaundice. Lungs: Non-labored breathing, chest rise symmetric. Heart: RRR. Abdomen: Normal abdominal exam, Abdomen soft, non-tender. Bowel sounds normal. No masses, organomegaly. Neurologic: AAOx3, answering questions appropriately. LABS CEA (ng/mL) Date Value 08/02/2018 1.7 07/25/2018 2.0 CA19-9 (U/mL) Date Value 08/02/2018 31 07/25/2018 46 Amylase (U/L) Date Value 12/30/2009 34 Lipase (U/L) Date Value 12/30/2009 20 No results found for: PREALB CRP (mg/dL) Date Value 12/31/2009 8.6 No results found for: TRANSF No results found for: BILIT ALT (U/L) Date Value 08/01/2018 66 07/26/2018 248 07/25/2018 284 AST (U/L) Date Value 08/01/2018 26 07/26/2018 110 07/25/2018 150 No components found for: LB Alkaline Phosphatase (U/L) Date Value 08/01/2018 159 07/26/2018 241 07/25/2018 270 No results found for: HBA1C PANCREATIC POLYPEPTIDE: Not Done GASTRIN: Not Done IGG4 Not Done Assessment ASSESSMENT: 67 year old male 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 PLAN: 67 year old male with mass in uncinate process of unknown pathology - CA 19-9 and CEA - Will present at HPB conference - Will follow up in the office with repeat imaging to continue to follow the mass - Scheduled for repeat ERCP/EUS to evaluate the mass as well. Recommend repeat biopsy at that time. - Will consider PET scan if above negative Approximately 45 minutes was spent with the patient and his family explaining the pathophysiology and answering all of their questions. The plan was also discussed in detail. SIGNATURE: Ara Michaels MD Referring Provider: KIM CARRANZA) [[id number]] Allergies As of Date: 08/02/2018 (No Known Allergies) Date Reviewed: 08/02/2018 Reviewed by: Ara Michaels - Fully Assessed Reason for Visit: Consult [[id number]] Primary Visit Diagnosis:Obstructive jaundice [K83.8] Other Visit Diagnoses:Other abnormal tumor markers [R97.8] Pancreatic mass [K86.9] Order(s):CA 19-9 BLD [DVBT220] Order #: [id number] FUTURE CEA BLD [SQCEA] Order #: [id number] FUTURE CHROMOGRANIN A [SQCHROMA] Order #: [id number] FUTURE Prescriptions as of 08/02/2018 Sig: FINASTERIDE 5 MG TABLET Take 1 tablet by mouth once d* SILDENAFIL (ANTIHYPERTENSIVE)* Take 1 tablet by mouth as dir* * MULTIVITAMIN TABLET Take one(1) tablet daily. Problem List As Of Date 08/02/2018 Noted Resolved Sebaceous cyst [L72.3] INVALID FOR*09/27/2011 Pure hypercholesterolemia [E78.00] INVALID FOR* Priority: C More... Unspecified disorder of prostate [N42.9] INVALID FOR*09/27/2011 Erectile dysfunction [N52.9] INVALID FOR*12/15/2017 BPH with obstruction/lower urinary tract sympto*INVALID FOR* Priority: A More... ELEVATED PROSTATE SPECIFIC ANTIGEN [R97.20] INVALID FOR* FAMILY HX COLON CANCER [Z80.0] INVALID FOR* More... 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 Prostate mass [N42.9] INVALID FOR* Priority: C More... Pancreatic mass [K86.9] INVALID FOR* Priority: B More... Visit Notes: >> Rebecca (Lazaro) LAZARO Lopez TueAug 02, 2018 8:46 AM Status: Signed Additional intake questions: Has the patient had nausea, vomiting, diarrhea, constipation, fatigue for > 1 week? None of the above Does the patient have a decreased appetite? No Does patient want to see a Site Manager? No (yes to any of above refer patient to schedulers for dietitian appointment) ) Does patient have any new or increased numbness or tingling of extremities? No Is patient interested in fertility information? No Does patient need any prescription refills? No Electronically Signed By: Rebecca Lopez RN Encounter Status:Closed by ARA MICHAELS MD on 08/06/18 HISTORY PHYSICAL Observed: 08/02/2018 Status: COMPLETED Source: [place] 9:01 AM [facility] REPOSITORY [facility] ID: [id number] Author: Ara Michaels Service: (none) Author Type: Physician Type: HANDP Filed: 08/06/2018 9:59 AM Note Text: An irregular mass was identified in the pancreatic head. The mass was ?hypoechoic and characterized by numerous shadowingc calcifications?and few anechoic spaces. The mass measured 22 mm by 17 mm in maximal cross-sectional diameter. The endosonographic borders were poorly-defined. An intact interface was seen between the mass and the superior mesenteric artery, celiac trunk, hepatic artery, portal vein, superior mesenteric vein and splenoportal confluence suggesting ?a lack of invasion. Fine needle aspiration for cytology was?performed. INITIAL PANCREATIC CANCER PATIENT NAME: Guerrero Wilson DATE of SERVICE: 08/06/2018 TIME of SERVICE: 9:40 AM PCP: Royce Springer MD This consult was requested by Kim Carranza for evaluation of pancreatic mass. My final recommendations will be communicated to the requesting health care provider by way of the shared medical record or [place] postal services. HPI: Mr. Wilson is a 67 year old male who presents for a pancreatic head mass causing painless obstructive jaundice. Incidental- No Jaundice-Yes Noted to have dark urine and light stools on 07/20. His noted to be jaundiced on 07/22 when they went out in the sunlight Went to OSH where they ordered labs and found to have elevated LFTs. He was not having any abdominal pain. He underwent an ERCP with stent placement and an EUS with biopsy (07/24). Biopsies of the pancreatic head mass were negative for malignancy and showed chronic inflammation. They stained negative for IgG4. His jaundice resolved. He is still not having any abdominal pain. He has neverhad pancreatitis before and has no family history of pancreatitis. He is a prior smoker and drinks occasional EtOH. He has no blood in his stool and denies CP or SOB. Of note, the patient had an episode of dark urine in November and wasn't feeling well, stating he was tired more than normal. He passed out at a restaurant and taken to the ER where he was found to be dehydrated and they sent him home. At that time he was not having any abdominal pain and denies being jaundiced or having acholic stools. He had a mother who from colon cancer at 71 and a father that had benign brain tumors. WORKUP: ERCP Yes intrahepatic ductal dilation Yes bile duct stricture Yes distal PD dilation NA sphincterotomy Yes stent Yes Plastic brushings No EUS Yes 2017 mass size [id number] Location uncinate vessel invasion/abutment: None lymph node No CT Yes 2017 mass size 12 mm location uncinate vessel involvement portal vein (<180degrees) Arterial: SMA: No contact Celiac: No contact MERYL:No contact Splenic artery: No Contact Venous: MPV: Attenuation or Stranding SMV: No Contact Splenic Vein: No Contact Venous collaterals present: No Contiguous Organ Involvement: No Lymph node No Liver Lesions: No Location n/a Metastases No ascites No venous thrombosis No Pathology/Cytology: pancreas Chronic inflammation PAST MEDICAL HISTORY PAST MEDICAL HISTORY Diagnosis Date - ACL tear Right knee, chronic - BPH with obstruction/lower urinary tract symptoms 08/17/2006 - ELEVATED PROSTATE SPECIFIC ANTIGEN 08/17/2006 - ERECTILE DYSFUNCTION 08/13/2005 - Family history of malignant neoplasm of gastrointestinal tract - Hypertrophy of prostate with urinary obstruction and other lower urinary tract symptoms (LUTS) 08/17/2006 - Obstructive jaundice 07/22/2018 - Other and unspecified hyperlipidemia - Septic shock(785.52) 2009 E. coli - STEMI (ST elevation myocardial infarction) (HCC) 12/30/2009 Septic myocarditis PAST SURGICAL HISTORY PAST SURGICAL HISTORY Procedure Laterality Date - COLONOS W/REM POLYP SNARE 08/10/16 small adenomatous polyp - 5 year follow up - COLONOSCOP W/ OR W/O BRSH SPEC 11/09/2002 Colonoscopy - COLONOSCOP W/ OR W/O BRSH SPEC 05/24/2008 Normal Colonoscopy - EGD EUS 07/24/2018 - ERCP 07/24/2018 - LEFT HEART CATH,PERCUTANEOUS 12/30/2009 Cardiac cath, L heart - PAST SURGICAL HISTORY OF 1985 vasectomy - PAST SURGICAL HISTORY OF 05/23/1998 right knee arthroscopy FAMILY HISTORY FAMILY HISTORY Problem Relation Age of Onset - Colon Cancer Mother dec. age 72, - Cancer Father Brain,dec. age 71 - Diabetes Father - None Sister - Cancer Maternal Grandfather - Clotting Disorder Sister DVT Pancreatic Cancer- No Colon Cancer- Yes Breast Cancer- No Pancreatitis- No SOCIAL HISTORY Social History Substance Use Topics - Smoking status: Former Smoker Years: 4.00 Types: Cigarettes Quit date: 10/10/1974 - Smokeless tobacco: Never Used Comment: Quit 1974 1-2 cig. daily - Alcohol use Yes Comment: rare beer, rare wine REVIEW OF SYSTEMS GENERAL: No weight loss, malaise or fevers RESPIRATORY: Negative for cough, hemoptysis, wheezing, COPD, dyspnea or shortness of breath CARDIOVASCULAR: Negative for chest pain, leg swelling, hypertension, CHF or palpitations GI: No nausea, vomiting, or diarrhea PHYSICAL EXAM: General Appearance: Well appearing, alert, in no acute distress, well-hydrated, well nourished.. Skin: Skin color, texture, turgor normal, no suspicious rashes or lesions, no jaundice. Lungs: Non-labored breathing, chest rise symmetric. Heart: RRR. Abdomen: Normal abdominal exam, Abdomen soft, non-tender. Bowel sounds normal. No masses, organomegaly. Neurologic: AAOx3, answering questions appropriately. LABS CEA (ng/mL) Date Value 08/02/2018 1.7 07/25/2018 2.0 CA19-9 (U/mL) Date Value 08/02/2018 31 07/25/2018 46 Amylase (U/L) Date Value 12/30/2009 34 Lipase (U/L) Date Value 12/30/2009 20 No results found for: PREALB CRP (mg/dL) Date Value 12/31/2009 8.6 No results found for: TRANSF No results found for: BILIT ALT (U/L) Date Value 08/01/2018 66 07/26/2018 248 07/25/2018 284 AST (U/L) Date Value 08/01/2018 26 07/26/2018 110 07/25/2018 150 No components found for: LB Alkaline Phosphatase (U/L) Date Value 08/01/2018 159 07/26/2018 241 07/25/2018 270 No results found for: HBA1C PANCREATIC POLYPEPTIDE: Not Done GASTRIN: Not Done IGG4 Not Done Assessment ASSESSMENT: 67 year old male 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 PLAN: 67 year old male with mass in uncinate process of unknown pathology - CA 19-9 and CEA - Will present at [facility]B conference - Will follow up in the office with repeat imaging to continue to follow the mass - Scheduled for repeat ERCP/EUS to evaluate the mass as well. Recommend repeat biopsy at that time. - Will consider PET scan if above negative Approximately 45 minutes was spent with the patient and his family explaining the pathophysiology and answering all of their questions. The plan was also discussed in detail. SIGNATURE: Ara Michaels MD PROGRESS Observed: 08/01/2018 Status: COMPLETED Source: [place] 4:06 PM [facility] REPOSITORY HNO ID: [id number] Author: Marion Lemon Ct Service: (none) Author Type: (none) Type: Progress Notes Filed: 08/01/2018 4:07 PM Note Text: Radiology Service Progress Note PATIENT NAME: Guerrero Wilson DATE OF SERVICE: August 01, 2018 TIME: 4:06 PM PATIENT IDENTITY VERIFICATION COMPLETED USING TWO (2) METHODS: Patient confirmed name verbally and Date of . PATIENT GENDER DATA: Male PATIENT RELEVANT IMPLANT DATA REVIEWED: Not Applicable CONTRAST INDUCED NEPHROPATHY RISK FACTORS: Patient age > 60 years CREATININE: Creatinine Date Value Ref Range Status 08/01/2018 0.82 0.73 - 1.22 mg/dL Final 07/26/2018 0.82 0.73 - 1.22 mg/dL Final 07/25/2018 0.82 0.73 - 1.22 mg/dL Final eGFR-All Other Races Date Value Ref Range Status 08/01/2018 >60 . Final Comment: eGFR (Estimated GFR) Units of measure: mL/min/1.73 meters squared eGFR is derived from the reexpressed MDRD Study equation using the following parameters: serum creatinine, age, gender and race. The creatinine assay has been calibrated to be traceable to IDMS. An eGFR <60 mL/min/1.73m2 for >3 months is consistent with chronic kidney disease. Refer to KDOQI guidelines for clinical interpretation. In patients with unstable renal function, e.g. those with acute kidney injury, the eGFR may not accurately reflect actual GFR. eGFR- Date Value Ref Range Status 08/01/2018 >60 Final P.O.C.T. RESULTS: POC done: Yes, See Lab Tab August 01, 2018 RADIOLOGIST NOTIFIED?: No ALLERGIES: Reviewed and unchanged CONTRAST ALLERGY: NO. PERIPHERAL IV ACCESS: Ambulatory: IV type: A peripheral IV was started in the Left antecubital site with a Angio cath: 18 gauge., Site assessment: Clean,Dry and Intact, Site disposition Discontinued RADIOLOGY DEPARTMENT: CT; Exam(s) Completed: Pancreas SIGNED BY: Marion Lemon Ct August 01, 2018 4:[address] PANCREAS W IVCON Observed: 08/01/2018 Status: F Source: [place] 3:[address] [facility] [place] REPOSITORY * * *Final Report* * * DATE OF EXAM: Aug 01 2018 3:25PM [facility] [id number] - CT PANCREAS W IVCON / PROCEDURE REASON: multiple diagnoses * * * * Physician Interpretation * * * * CT ABDOMEN WITH IV CONTRAST CLINICAL INDICATION: Reported pancreatic mass with nondiagnostic biopsy. Obstructive jaundice. COMPARISON: Outside study from 07/22/2018 TECHNIQUE: A CT of the abdomen was performed using pancreas protocol, including both late arterial phase and portal phase imaging. Multiplanar reformats were obtained CONTRAST: IV: 145 ml of Omnipaque 300 CT Radiation dose: Integrated Dose-length product (DLP) for this visit = 736 mGy*cm. CT Dose Reduction Employed: Automated exposure control(AEC) and iterative recon RESULT: PANCREAS: Pancreatic mass as follows: MORPHOLOGIC EVALUATION: No distinct pancreatic mass is identified. There are clustered calcifications in the head and uncinate. On the prior outside exam, there is equivocal ovoid area of low attenuation in the head adjacent to the SMV that measured 1.2 x 1.1 cm (2:37). This is somewhat less clearly visualized, but on the current exam is seen on series 9, image 47. There is a pancreatic duct stent. No pancreatic duct dilation. Biliary: Metallic stent from the mid common bile duct duodenum. Pneumobilia. Minimal intrahepatic duct prominence. Gallbladder present. ARTERIAL EVALUATION SMA Degree of solid soft tissue contact: None Degree of increased hazy attenuation/stranding contact: None Focal vessel narrowing or contour irregularity: Present Extension to first SMA branch: Absent CELIAC AXIS Degree of solid soft tissue contact: None Degree of increased hazy attenuation/stranding contact: None Focal vessel narrowing or contour irregularity: Absent MERYL Degree of solid soft tissue contact: None Degree of increased hazy attenuation/stranding contact: None Focal vessel narrowing or contour irregularity: Absent Extension to celiac axis: Absent Extension to bifurcation of right/left hepatic artery: Absent ARTERIAL VARIANT ANATOMY: Absent VENOUS EVALUATION MPV: Present Degree of solid soft tissue contact: <180 degrees (coronal series 11, image 45), abuts right lateral proximal portal vein. Degree of increased hazy attenuation/stranding contact: None Focal vessel narrowing or contour irregularity: Absent SMV: Present Degree of solid soft tissue contact: None Degree of increased hazy attenuation/stranding contact: None Focal vessel narrowing or contour irregularity: Absent Extension to first draining vein: Absent Venous thrombus: No venous thrombosis. Venous collaterals: None CONTIGUOUS ORGAN INVASION: None SUSPICIOUS LYMPH NODES: None LIVER LESIONS: Absent. PERITONEUM: Ascites absent. No peritoneal nodules. OTHER ABDOMINAL FINDINGS: Spleen: No mass. No splenomegaly. Adrenals: No mass. Kidneys: No mass, calculus or hydronephrosis. GI tract: No dilation or wall thickening. BONES: No focal bone lesion. LOWER THORAX: No basilar lung nodules. IMPRESSION: Subtle 1.2 cm area of low attenuation within the uncinate process that could represent neoplasm. It abuts the right lateral portal vein (less than 180 degrees). Otherwise, no vascular involvement, liver lesions, or visualized peritoneal disease. Road Freight Conductor: PSCB Transcribe Date/Time: Aug 01 2018 4:05P Dictated by : TG MACHADO MD This examination was interpreted and the report reviewed and electronically signed by: TG MACHADO MD on Aug 01 2018 4:26PM EST [id number] COMP METABOLIC PANEL Collected: 08/01/2018 Status: F Source: [place] 1:[address] [facility] REPOSITORY TYPE CODE TESTS RESULT OUT OF REFERENCE UNITS RANGE LAB TP 6.3-8.0 g/dL Protein, Total 7.0 LAB ALB 3.9-4.9 g/dL Albumin 4.3 LAB CA 8.5-10.2 mg/dL Calcium, Total 9.3 LAB TBIL 0.2-1.3 mg/dL Bilirubin, High Total 1.7 LAB ALKP 38-113 U/L Alkaline High Phosphatase 159 LAB AST 14-40 U/L AST 26 LAB GLU 74-99 mg/dL Glucose 97 LAB BUN 7-21 mg/dL BUN High 22 LAB CRET 0.73-1.22 mg/dL Creatinine 0.82 LAB NA 136-144 mmol/L Sodium 140 LAB K 3.7-5.1 mmol/L Potassium 4.1 LAB CL 97-105 mmol/L Chloride High 108 LAB CO2 22-30 mmol/L CO2 25 LAB AGAP 9-18 mmol/L Anion Gap Low 7 LAB ALT 10-54 U/L ALT High 66 LAB GFRAA eGFR- >60 Amer. LAB GFRNAA . eGFR-All Other Races >60 Result Comment: eGFR (Estimated GFR) Units of measure: mL/min/1.73 meters squared eGFR is derived from the reexpressed MDRD Study equation using the following parameters: serum creatinine, age, gender and race. The creatinine assay has been calibrated to be traceable to IDMS. An eGFR <60 mL/min/1.73m2 for >3 months is consistent with chronic kidney disease. Refer to KDOQI guidelines for clinical interpretation. In patients with unstable renal function, e.g. those with acute kidney injury, the eGFR may not accurately reflect actual GFR. CASE MANAGEM Observed: 07/26/2018 Status: COMPLETED Source: [place] 2:48 PM [facility] REPOSITORY HNO ID: [id number] Author: Flor Baeza Service: Care Management Author Type: (none) Type: Care Mgt Progress Note Filed: 07/26/2018 2:48 PM Note Text: CARE MANAGEMENT PROGRESS NOTE SERVICE DATE: 07/26/2018 SERVICE TIME: 2:44 PM LOS: 4 days IM letter given to patient on 07/26/18. SIGNATURE: Víctor Valentinorical Assistant PATIENT NAME: Guerrero Wilson DATE: July 26, 2018 TIME: 2:48 PM Pager/Contact: CNDS Observed: 07/26/2018 Status: COMPLETED Source: [place] 1:25 PM [facility] REPOSITORY HNO ID: [id number] Author: Margaret Palencia Service: Hospital Medicine Author Type: Nurse Practitioner Type: Discharge Summaries Filed: 07/27/2018 2:57 PM Note Text: DISCHARGE SUMMARY PATIENT NAME: Guerrero Wilson ADMISSION DATE: 07/22/2018 DISCHARGE DATE: 07/26/2018 Attending Physician: Kim Carranza Code Status: Not on file Highest Readmission Risk Score: 7 The 30 day readmissions risk score is derived from an internally validated risk model which evaluates patient level characteristics, utilization history, medication orders and lab results up until the day of discharge. Patients with a score of 40 or above are considered highest risk for readmission. Specific patient level drivers will be listed at the bottom of the summary. HPI: This is a 67 year old male with PMH significant for CAD (septic myocarditis c/b STEMI in 2009), HLP, BPH who was admitted with obstructive jaundice. The patient had been complaining of dark urine and light colored stools for 3 days prior to admission. His also noted yellowness of the skin.?He went to local ER where he was noted to have elevated T bili and CT was done showing mild dilation of CBD and intrahepatic bile ducts, normal spleen and mild prominence of uncinate process of pancreas. ? With that information, he was transferred to [facility] where labs showed T bili 9.2,alk phos 256, AST 159 and ALT 258. Looking back at his labs, he did have T bili elevation to ~4-5 in 2009 when he was admitted for STEMI. CBC, CMP (Tbil 1.4) was unremarkable in Jun 2018 during physical. ? Based on reported OSH imaging, he has some prominence of pancreatic uncinate process and some ductal dilation which does raise the concern for pancreatic malignancy causing biliary obstruction too. GI was consulted and completed and EUS and ERCP. EUS performed 07/24 showed a pancreatic head mass, s/p FNA/B. Noted to have hyperechoic material consistent with sludge in CBD and GB. He also underwent ERCP which demonstrated a single localized biliary stricture in the CBD. S/p ventral PD stent placement, s/p sphincterotomy with one covered metal stent placed in CBD. Patient remained stable after procedure, LFTs improving. GI recommended Hepatobiliary surgery consult. [facility] surgery team scheduled outpatient appointment as biopsy results are still pending. An appointment has been made for next week on Tuesday, 08/02. [facility] surgery team requested that a CT pancreas be scheduled as outpatient prior to appointment, this has been scheduled for Tuesday, 08/01. A CMP has also been added for patient to have drawn prior to appointment to follow up on LFTs. Patient needed a KUB in 10 days to ensure passage of PD stent, this can be followed up at appointment via CT scan. A follow up appointment has also been scheduled with patient's PCP. Patient is being discharge in stable condition, he denies chest pain, SOB, Nausea, vomiting, abdominal pain. He is tolerating a regular diet. ? Operations During Hospitalization: None Procedures During Hospitalization: EGD/EUS 07/24: Impression: ? - A mass was identified in the pancreatic head, ? etiology is indeteminate. Fine needle aspiration and ? biopsy performed. ? - There was no evidence of significant pathology in ? the left lobe of the liver. ? - Hyperechoic material consistent with sludge was ? visualized endosonographically in the common bile ? duct and in the gallbladder body. ERCP 07/24: Impression: ? - The major papilla was adjacent to a diverticulum. ? - A single localized biliary stricture was found in ? the common bile duct. ? - One temporary stent was placed into the ventral ? pancreatic duct. ? - A biliary sphincterotomy was performed. ? - One covered metal stent was placed into the common ? bile duct. Assessment AND Plan, all Hosp Problems Active Hospital Problems as of 07/26/2018 Noted - Resolved Hospital * (Principal)Obstructive jaundice 07/22/2018 - Present Current Assessment AND Plan Assessment: Acute Tbili 9.2 on admission; +jaundice and icterus on exam; denies abd pain; good appetite; no weight loss Of note; presented to OSH with dark urine, light colored stools and abd pain x3 days OSH CT a/p showed concern for possible pancreatic mass and possible prostate mass (CT uploaded to [facility] 07/23) - EUS performed 07/24 showed a pancreatic head mass, s/p FNA/B. Noted to have hyperechoic material consistent with sludge in CBD and GB. Plan: - GI consulted; appreciate recs - ERCP completed on 07/24 which demonstrated a single localized biliary stricture in the CBD. S/p ventral PD stent placement, s/p sphincterotomy with one covered metal stent placed in CBD. - Bili improving, LFT's improving. Patient discharging with follow up scheduled with [facility] surgery next week. CT pancreas ordered per request of HPS inpatient team and scheduled prior to appointment - KUB in 10 days to ensure passage of PD stent (should be seen on CT and followed up at [facility] surgery appointment) Pancreatic mass 07/25/2018 - Present Current Assessment AND Plan ?Based on reported OSH imaging, he has some prominence of pancreatic uncinate process and some ductal dilation which does raise the concern for pancreatic malignancy causing biliary obstruction too. - EUS performed 07/24 and showed a pancreatic head mass, s/p FNA/B. Noted to have hyperechoic material consistent with sludge in CBD and GB. - He also underwent ERCP which demonstrated a single localized biliary stricture in the CBD. S/p ventral PD stent placement, s/p sphincterotomy with one covered metal stent placed in CBD. Possible pancreatic malignancy, awaiting biopsy results PLAN: - [facility] surgery consulted and outpatient appointment scheduled for next week to follow up biopsy results and to establish plan - [facility] surgery team requested CT pancreas protocol to be scheduled as outpatient and completed prior to appointment (scheduled for Tuesday next week) Prostate mass 07/23/2018 - Present Current Assessment AND Plan Assessment: Acute Hx of BPH; follows with Keila Bill 12/2017 Prostate BIOPSY: 03/12/2016. FINAL DIAGNOSIS--> BENIGN OSH CT a/p showed concern re: prostate mass indenting bladder approx 4 cm Plan: - Urology was consulted and reviewed CT scan which appears to be normal enlarged prostate which is consistent with exam - Continue home finasteride 5 mg QD - PSA in process - Follow up PRN with Keila Salinas as outpatient for continued management of BPH Resolved Hospital Problems as of 07/26/2018 None Transitions of Care Critical Issues: IMAGING FOLLOW-UP: CT pancreas to be followed up at [facility] surgery appointment LAB MONITORING NEEDED: CMP to monitor LFTs SPECIALIST FOLLOW-UP: Hepatobiliary surgery LABS AND PROCEDURES PENDING AT DISCHARGE: Pending labs results and biopsy to be followed up by hepatobiliary team at appointment on 08/02 Consulting Teams During Hospitalization: Gastroenterology Patient Condition @ Discharge: Good Discharge Disposition: Home/Self Care Discharge Physical Exam: VITAL SIGNS: BP 112/66 Pulse 72 Temp 36.3 ?C (97.4 ?F) (Oral) Resp 16 Ht 180.3 cm (5' 11) Wt 84.9 kg (187 lb 2.7 oz) SpO2 98% BMI 26.11 kg/m? GENERAL: Alert, no distress, cooperative SKIN: Skin texture, turgor normal. No rashes or lesions. Jaundiced LUNGS: Lungs clear to auscultation, Good diaphragmatic excursion CARDIAC: Normal S1 and S2; no rubs, murmurs, or gallops ABDOMEN: Abdomen soft, non-tender, BS normal, No masses or organomegaly EXTREMITIES: Extremities normal, no deformities, edema, clubbing or skin discoloration. Good capillary refill., No ulcers NEURO: Gait normal. Sensation grossly intact, Cranial nerves II-XII intact Information Provided to Patient: 1. Take your medications only as prescribed. Review the attached medication list, as some medications may have been added, removed, or changed 2. Follow up with outpatient providers as scheduled 3. Return to the emergency department if you experience fever, chills, difficulty breathing, chest pain, confusion, weakness, or worsening of your symptoms Diet: Resume pre-hospital diet Activity: Resume pre-hospital activity Wound/Surgical Site Care: None ALLERGIES No Known Allergies Discharge Medications: Current Discharge Medication List START taking these medications iv contrast (will be provided with radiology test) CT PANCREAS W Inject, intravenously, once for 1 dose.No IV access, insert saline lock prior to the beginning of sedation, infusion, injection of imaging exam. Discontinue saline lock post exam. If Pt. has a central line or IVAD, may access for administration according to line specific nursing protocol. Once exam is complete flush line and de-access according to line specific nursing protocol in the CT contrast administration guidelines link. Qty: 1 Each Refills: 0 CONTINUE these medications which have NOT CHANGED finasteride (PROSCAR) 5 mg Take 5 mg by mouth once daily. Qty: 90 tablet Refills: 3 sildenafil (REVATIO) 20 mg Take 20 mg by mouth as directed. 1-5 tablets taken on empty stomach and with sexual stimulation following. Qty: 30 tablet Refills: 3 Comments: Please call patient for billing and shipping information MULTIVITAMIN TAB Take one(1) tablet daily. Refills: 0 Future Appointments Date Time Provider Department Center 08/01/2018 2:20 PM [facility] (I-STAT) [facility] 08/02/2018 9:10 AM Ara ESCOBAR 08/10/2018 11[facility] The patient's risk for 30-day readmission is determined using the following contributing factors: Pt variables contributing to increased readmission risk: 15 Most Recent BUN Result 9.2 First Resulted Calcium During Admission 3 Active Medication Orders 1 Insurance - Medicare 1 Active Anticoagulant TIME OF CARE: Discharge Management: I personally spent less than 30 minutes involved in the discharge management of this patient. SIGNATURE: Margaret Palencia APRN.CNP PAGER: [phone] DATE: July 26, 2018 TIME: 1:25 PM CBC AND DIFFERENTIAL Collected: 07/26/2018 Status: F Source: [place] 5:14 AM [facility] REPOSITORY TYPE CODE TESTS RESULT OUT OF REFERENCE UNITS RANGE LAB WBC 3.70-11.00 k/uL WBC 8.29 LAB RBC 4.20-6.00 m/uL RBC 5.22 LAB HGB 13.0-17.0 g/dL Hemoglobin 16.6 LAB HCT 39.0-51.0 % Hematocrit 47.2 LAB MCV 80.0-100.0 fL MCV 90.4 LAB MCH 26.0-34.0 pG MCH 31.8 LAB MCHC 30.5-36.0 g/dL MCHC 35.2 LAB RDWCV 11.5-15.0 % RDW-CV 13.2 LAB PLTCT 150-400 k/uL Platelet Count 210 LAB MPV 9.0-12.7 fL Low MPV 8.8 LAB ANEUT % Neut% 63.2 LAB AANEUT 1.45-7.50 k/uL Abs Neut 5.24 LAB ALYMP % Lymph% 27.4 LAB AALYMP 1.00-4.00 k/uL Abs Lymph 2.27 LAB AMONO % [place]% 7.1 LAB AAMONO <0.87 k/uL Abs [place] 0.59 LAB AEOS % Eosin% 1.6 LAB AAEOS <0.46 k/uL Abs Eosin 0.13 LAB ABASO % Baso% 0.7 LAB AABASO <0.11 k/uL Abs Baso 0.06 LAB AUNRBC 0 /100 WBC NRBCs High 0.1 LAB ABNRBC <0.01 k/uL Absolute High nRBC 0.01 LAB DTYP DTYPE Auto Diff Performed By: #### CBCDIF, PT, CMP #### [facility] [address] [place], [place] [address] PROTIME Collected: 07/26/2018 Status: F Source: [place] 5:14 AM [facility] REPOSITORY TYPE CODE TESTS RESULT OUT OF RANGE REFERENCE UNITS LAB PSEC 9.7-13.0 sec PT Sec 10.1 LAB INR 0.9-1.3 PT INR 1.0 Result Comment: Vitamin K Antagonist (VKA) Therapeutic Range: INR 2 to 3 (Target INR of 2.5) Note: For patients treated with VKA drugs, such as warfarin, the [employer] 2012 Guideline recommends a therapeutic INR range of 2 to 3 (target INR of 2.5). This recommendation includes high-risk patients with antiphospholipid syndrome with previous arterial or venous thromboembolism, current-generation mechanical or bioprosthetic aortic heart valve replacement. Note: Patients with mechanical aortic valve replacement and additional risk factors for thromboembolic events (atrial fibrillation, previous thromboembolism, LV dysfunction, hypercoagulable conditions) or an older generation mechanical AVR (i.e., ball in-Cage) or any mechanical MVR should have a INR therapeutic range of 2.5 to 3.5 (target INR of 3). Donn GH, et al. Chest 2012, 141:7S-47S Van MORA et al. [facility] 2017, 70: 252-289 Performed By: #### CBCDIF, PT, CMP #### [facility] [address] [place], [place] [address] COMP METABOLIC PANEL Collected: 07/26/2018 Status: F Source: [place] 5:14 AM [facility] REPOSITORY TYPE CODE TESTS RESULT OUT OF REFERENCE UNITS RANGE LAB TP 6.3-8.0 g/dL Protein, Total 6.9 LAB ALB 3.9-4.9 g/dL Low Albumin 3.6 LAB CA 8.5-10.2 mg/dL Calcium, Total 9.3 LAB TBIL 0.2-1.3 mg/dL Bilirubin, High Total 3.7 LAB ALKP 38-113 U/L Alkaline High Phosphatase 241 LAB AST 14-40 U/L AST High 110 LAB GLU 74-99 mg/dL Glucose 90 Result Comment: The [place] [employer] (ADA) provides guidance for cutoff values for fasting glucose and random glucose. The ADA defines fasting as no caloric intake for at least 8 hours. Fas ting plasma glucose results between 100 to 125 mg/dL indicate increased risk for diabetes (prediabetes). Fasting plasma glucose results greater than or equal to 126 mg/dL meet the criteria for diagnosis of diabetes. In the absence of unequivocal hyperglycemia, results should be confirmed by repeat testing. In a patient with classic symptoms of hyperglycemia or hyperglycemic crisis, random plasma glucose results greater than or equal to 200 mg/dL meet the criteria for diagnosis of diabetes. Reference: Standards of Medical Care in Diabetes 2016, [place] [employer]. Diabetes Care. 2016.39(Suppl 1). LAB BUN 9-24 mg/dL BUN 15 LAB CRET 0.73-1.22 mg/dL Creatinine 0.82 LAB NA 136-144 mmol/L Sodium 140 LAB K 3.7-5.1 mmol/L Low Potassium 3.6 LAB CL 97-105 mmol/L Chloride 102 LAB CO2 22-30 mmol/L Low CO2 21 LAB AGAP 9-18 mmol/L Anion Gap 17 LAB ALT 10-54 U/L ALT High 248 LAB GFRAA eGFR- Amer. >60 LAB GFRNAA . eGFR-All Other Races >60 Result Comment: eGFR (Estimated GFR) Units of measure: mL/min/1.73 meters squared eGFR is derived from the reexpressed MDRD Study equation using the following parameters: serum creatinine, age, gender and race. The creatinine assay has been calibrated to be traceable to IDMS. An eGFR <60 mL/min/1.73m2 for >3 months is consistent with chronic kidney disease. Refer to KDOQI guidelines for clinical interpretation. In patients with unstable renal function, e.g. those with acute kidney injury, the eGFR may not accurately reflect actual GFR. Performed By: #### CBCDIF, PT, CMP #### [facility] [address] [place] [address] CA 19-9 Collected: 07/25/2018 Status: F Source: [place] 7:31 PM [facility] REPOSITORY TYPE CODE TESTS RESULT OUT OF RANGE REFERENCE UNITS LAB CA199 <36 U/mL High CA 19-9 46 Result Comment: Test analyzed by the Leida DxI method. Performed By: #### CA199, CEA #### [facility] [address] [place] [address] CEA Collected: 07/25/2018 Status: F Source: [place] 7:31 PM [facility] REPOSITORY TYPE CODE TESTS RESULT OUT OF RANGE REFERENCE UNITS LAB CEA 0.0-2.9 ng/mL CEA 2.0 Result Comment: Test analyzed by the Leida DxI method. Performed By: #### CA199, CEA #### [facility] [address] [place], [place] [address] IGG SUBCLASS 4 Collected: 07/25/2018 Status: F Source: [place] 7:31 PM [facility] REPOSITORY TYPE CODE TESTS RESULT OUT OF REFERENCE UNITS RANGE LAB IGG4 5.0-131.0 mg/dL IgG Subclass 4 13.8 Performed By: #### IGG4 #### [facility] [address] [place], [place] [address] NURSING PROG Observed: 07/25/2018 Status: COMPLETED Source: [place] 7:04 PM [facility] REPOSITORY HNO ID: [id number] Author: Rosenda ChristyRn) LAZARO Padron Service: (none) Author Type: Registered Nurse Type: Nursing Progress Note Filed: 07/25/2018 10:14 PM Note Text: Nursing Progress Note Patient Name: Guerrero Wilson Patient Location: [place] [address] Daily Note:Pt remain a/ox3, without c/o pain and discomfort. pt remain self care, self ambulatory. Pt remain on RA. Pt tolerating PO and fluid intake. Pt self ambulating in leblanc, gait stable. Voiding per rest room. Bed in lowest lock position, call light and other require items in place. Continue to monitor the pt and his needs. Pt observe ambulating in leblanc with a stable gait. Pt resting quietly throughout the shift. This note was completed by: Rosenda Padron RN THERAPY NT Observed: 07/25/2018 Status: COMPLETED Source: [place] 1:14 PM [facility] REPOSITORY HNO ID: [id number] Author: Janette (Pt) Lorene Service: Physical Therapy Author Type: Physical Therapist Type: Therapy (PT/OT/Speech/Resp) Filed: 07/25/2018 1:15 PM Note Text: PHYSICAL THERAPY MISSED VISIT SERVICE DATE: 07/25/2018 SERVICE TIME: 1035 to 1035 ROOM: [place] [address] Attempted Evaluation. Patient not seen due to Other: See Comment. Per pt/spouse/nsg pt independent with mobility house. No skilled needs at this time. Will sign off. Pls consult again if any changes in balance/strength as needs if arise. SIGNATURE: Janette Paulson PT PATIENT NAME: Guerrero Wilson DATE: July 25, 2018 TIME: 1:14 PM PROGRESS Observed: 07/25/2018 Status: COMPLETED Source: [place] 10:[address] [facility] [place] REPOSITORY HNO ID: [id number] Author: Margaret (Radha) Talha Service: Hospital Medicine Author Type: Nurse Practitioner Type: Progress Notes Filed: 07/25/2018 4:15 PM Note Text: SERVICE DATE: 07/25/2018 SERVICE TIME: 10:30 AM HOSPITAL MEDICINE PROGRESS NOTE NIGHT AND WEEKEND COVERAGE: Days: [phone], please page me for patient issues. Nights: [phone], please page Team GIM 4 - 8th floor: [phone] Interval HPI Interval Events: MASSIEL overnight T Bili 4.6 this AM. LFTs unchanged. Patient had EUS performed yesterday which showed a pancreatic head mass, s/p FNA/B. Noted to have hyperechoic material consistent with sludge in CBD and GB. He also underwent ERCP which demonstrated a single localized biliary stricture in the CBD. S/p ventral PD stent placement, s/p sphincterotomy with one covered metal stent placed in CBD. GI recommended monitoring patient today and checking LFTs in AM. If improved ok to discharge patient. Outpatient follow up has been scheduled with [facility] surgery to discuss pending biopsy results. [facility] surgery team requested that a CT pancreas protocol be arranged as outpatient prior to appointment, primary team will arrange this at time of discharge. Patient denies abdominal pain, N/V/D/C, fever or chills. Tolerating a regular diet. Patient and his updated on plan of care. Likely to discharge tomorrow as long as LFTs improve s/p stent placement. OBJECTIVE BP 129/77 Pulse 77 Temp (Src) 98.1 (Oral) Resp 18 Ht 5' 11 (1.80m) Wt 187 lb 2.7 oz (84.9kg) SpO2 93% BMI 26.12 kg/(m2). Physical Exam Performed: GENERAL: Alert, no distress, cooperative SKIN: Skin texture, turgor normal. No rashes or lesions. Jaundiced LUNGS: Lungs clear to auscultation, Good diaphragmatic excursion CARDIAC: Normal S1 and S2; no rubs, murmurs, or gallops ABDOMEN: Abdomen soft, non-tender, BS normal, No masses or organomegaly EXTREMITIES: Extremities normal, no deformities, edema, clubbing or skin discoloration. Good capillary refill., No ulcers NEURO: Gait normal. Sensation grossly intact, Cranial nerves II-XII intact Lines, Drains, and Airways Line Peripheral 07/23/18 0010 Admission to Hospital Short Right Wrist 20 Gauge 2 days Reviewed lines, drains, AND airways. Need to be continued Medications: Reviewed Diagnostic tests reviewed: Most recent imaging Most recent labs CARE COORDINATION: 67 year old male with PMH significant for CAD, HLP, BPH who is admitted with obstructive jaundice and GI consulted for the same. ? The patient has been complaining of dark urine and light colored stools since 3 days. Yesterday the noted yellowness of the skin. He went to local ER where he was noted to have elevated T bili and CT was done showing mild dilation of CBD and intrahepatic bile ducts, normal spleen and mild prominence of uncinate process of pancreas. ? With that information, he was transferred to [facility] where labs showed T bili 9.2,alk phos 256, AST 159 and ALT 258. Looking back at his labs, he did have T bili elevation to ~4-5 in 2009 when he was admitted for STEMI. ? He quit smoking many years ago, denies significant alcohol intake. Denies any weight loss. ASSESSMENT AND PLAN Assessment AND Plan, all Hosp Problems Active Hospital Problems as of 07/25/2018 Noted - Resolved Hospital * (Principal)Obstructive jaundice 07/22/2018 - Present Current Assessment AND Plan Assessment: Acute Tbili 9.2 on admission; +jaundice and icterus on exam; denies abd pain; good appetite; no weight loss Of note; presented to OSH with dark urine, light colored stools and abd pain x3 days OSH CT a/p showed concern for possible pancreatic mass and possible prostate mass (CT uploaded to [facility] 07/23) - EUS performed 07/24 showed a pancreatic head mass, s/p FNA/B. Noted to have hyperechoic material consistent with sludge in CBD and GB. Plan: - GI consulted; appreciate recs - ERCP completed on 07/24 which demonstrated a single localized biliary stricture in the CBD. S/p ventral PD stent placement, s/p sphincterotomy with one covered metal stent placed in CBD. - Bili improving, continuing to monitor LFTs, likely to D/C tomorrow if improved Pancreatic mass 07/25/2018 - Present Current Assessment AND Plan ?Based on reported OSH imaging, he has some prominence of pancreatic uncinate process and some ductal dilation which does raise the concern for pancreatic malignancy causing biliary obstruction too. - EUS performed 07/24 and showed a pancreatic head mass, s/p FNA/B. Noted to have hyperechoic material consistent with sludge in CBD and GB. - He also underwent ERCP which demonstrated a single localized biliary stricture in the CBD. S/p ventral PD stent placement, s/p sphincterotomy with one covered metal stent placed in CBD. PLAN: - [facility] surgery consulted and outpatient appointment scheduled for next week to follow up biopsy results and to establish plan - [facility]B surgery team requested CT pancreas protocol to be scheduled as outpatient and completed prior to appointment Prostate mass 07/23/2018 - Present Current Assessment AND Plan Assessment: Acute Hx of BPH; follows with Keila Bill 12/2017 Prostate BIOPSY: 03/12/2016. FINAL DIAGNOSIS--> BENIGN OSH CT a/p showed concern re: prostate mass indenting bladder approx 4 cm Plan: - Urology was consulted and reviewed CT scan which appears to be normal enlarged prostate which is consistent with exam - Continue home finasteride 5 mg QD - PSA in process - Follow up PRN with Keila Salinas as outpatient for continued management of BPH Medication and Non-Pharmacologic VTE Prophylaxis/Anticoagulants Anticoagulant AND Antiplatelet Medications Start Dose Route Frequency Ordered Stop 07/22/182199 enoxaparin 40 mg injection (LOVENOX) (Surgical Moderate Risk ) 40 mg SUBCUTANEOUS DAILY 07/22/182150 -- 07/22/182199 vte non-pharmacologic prophylaxis - none indicated ([place]) VTE Prophylaxis: VTE prophylaxis appropriate Plan of care discussed with: Attending, Patient, Case Management and RN SIGNATURE: Margaret Palencia APRN.CNP PATIENT NAME: Guerrero Wilson DATE: July 25, 2018 TIME: 10:30 AM PAGER/CONTACT #: [phone] CASE MGT INIT Observed: 07/25/2018 Status: COMPLETED Source: [place] 9:30 AM [facility] REPOSITORY O ID: [id number] Author: Sapphire Patterson (Sw) Service: Care Management Author Type: Media Center Specialist Type: Care Mgt Initial Assessment Filed: 07/25/2018 11:48 AM Note Text: CARE MANAGEMENT: ASSESSMENT AND DISCHARGE PLAN SERVICE DATE: 07/25/2018 SERVICE TIME: 11:46 AM PRIMARY CARE PHYSICIAN: Royce Springer MD ADMISSION STATUS: Inpatient Needs Prior to Discharge: To Be Determined 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 No Advance Directive: Health Literacy: 1. How often do you need to have someone help you when you read instructions, pamphlets, or other written material from your doctor or pharmacy? Never - 1 2. How confident are you filling out medical forms by yourself? Extremely - 1 If Patient scores > 3 on either question, the following interventions were put into place: Patient did not score > 3 FUNCTIONAL AND COGNITIVE/BEHAVIORAL PRIOR TO ADMISSION: Baseline Mental Status: Alert AND Oriented, Person, Place , Time and Situation Functional Status: Independent Does Patient Currently Receive Any Community Services or Home Care? None Equipment Prior to Admission: None Has the Patient Been in a [facility] Facility in the Past 30 days? No SOCIAL: Living Arrangement: Home Lives With: Spouse Financial Resources: Retired Primary Contact: Extended Emergency Contact Information Primary Emergency Contact: Poonam [place] Relation: Spouse Supportive: Yes Other Important Patient Contacts: None Caregiver Assessment: Caregiver is ready, willing and able to meet the patient's needs as recommended by the inter-professional team? Yes Patient's transition needs and plan for meeting these needs: Pt will most likely return home at d/c where he is independent in his needs. Does the patient have an acute stroke diagnosis, or has the patient had a stroke during this admission? No Medication Adherence: I am convinced of the importance of my prescription medication: Agree completely - 0 I worry that my prescription medication will do more harm than good to me Disagree completely - 0 I feel financially burdened by my [id number] expenses for my prescription medication: Disagree completely - 0 Patient is categorized as low risk < 2 Are you interested in bedside delivery of your medications? No Food Concerns: In the Last Month, Have You had Trouble Getting Food? No trouble getting food During the Last Month, Have You Worried Whether Your Food Would Run Out Before You Had Enough Money to Buy More? No Is the Patient Psychosocially Complex? No ASSESSMENT AND PLAN: Medical Needs: None Psychosocial Needs: None FREEDOM OF CHOICE EXPLAINED: N/A POTENTIAL TRANSITION PLANS Home Pt admitted with jaundice. Pt underwent EUS/ERCP yesterday and is currently awaiting biopsy results. SW met with pt and his at bedside to introduce self and role. 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 Denies any HHC or DME currently. Anticipate pt will return home at d/c with outpatient follow up. Please call or page SW if any questions or concerns arise. SIGNATURE: ELLA Salazar PATIENT NAME: Guerrero Wilson DATE: July 25, 2018 TIME: 9:30 AM PAGER/CONTACT #: [phone] CBC AND DIFFERENTIAL Collected: 07/25/2018 Status: F Source: [place] 6:[address] [facility] [place] REPOSITORY TYPE CODE TESTS RESULT OUT OF REFERENCE UNITS RANGE LAB WBC 3.70-11.00 k/uL WBC High 12.05 LAB RBC 4.20-6.00 m/uL RBC 5.43 LAB HGB 13.0-17.0 g/dL Hemoglobin 16.8 LAB HCT 39.0-51.0 % Hematocrit 48.5 LAB MCV 80.0-100.0 fL MCV 89.3 LAB MCH 26.0-34.0 pG MCH 30.9 LAB MCHC 30.5-36.0 g/dL MCHC 34.6 LAB RDWCV 11.5-15.0 % RDW-CV 13.2 LAB PLTCT 150-400 k/uL Platelet Count 228 LAB MPV 9.0-12.7 fL MPV 9.2 LAB ANEUT % Neut% 76.6 LAB AANEUT 1.45-7.50 k/uL Abs Neut High 9.23 LAB ALYMP % Lymph% 16.0 LAB AALYMP 1.00-4.00 k/uL Abs Lymph 1.93 LAB AMONO % [place]% 6.4 LAB AAMONO <0.87 k/uL Abs [place] 0.77 LAB AEOS % Eosin% 0.5 LAB AAEOS <0.46 k/uL Abs Eosin 0.06 LAB ABASO % Baso% 0.5 LAB AABASO <0.11 k/uL Abs Baso 0.06 LAB AUNRBC 0 /100 WBC NRBCs 0.0 LAB ABNRBC <0.01 k/uL Absolute nRBC <0.01 LAB DTYP DTYPE Auto Diff Performed By: #### CBCDIF, PT, CMP #### [facility] [address] [place], [place] [address] PROTIME Collected: 07/25/2018 Status: F Source: [place] 6:12 AM [facility] REPOSITORY TYPE CODE TESTS RESULT OUT OF RANGE REFERENCE UNITS LAB PSEC 9.7-13.0 sec PT Sec 10.0 Result Comment: Specimen slightly hemolyzed. LAB INR 0.9-1.3 PT INR 0.9 Result Comment: Vitamin K Antagonist (VKA) Therapeutic Range: INR 2 to 3 (Target INR of 2.5) Note: For patients treated with VKA drugs, such as warfarin, the [place] [employer] 2012 Guideline recommends a therapeutic INR range of 2 to 3 (target INR of 2.5). This recommendation includes high-risk patients with antiphospholipid syndrome with previous arterial or venous thromboembolism, current-generation mechanical or bioprosthetic aortic heart valve replacement. Note: Patients with mechanical aortic valve replacement and additional risk factors for thromboembolic events (atrial fibrillation, previous thromboembolism, LV dysfunction, hypercoagulable conditions) or an older generation mechanical AVR (i.e., ball in-Cage) or any mechanical MVR should have a INR therapeutic range of 2.5 to 3.5 (target INR of 3). Donn GH, et al. Chest 2012, 141:7S-47S Van RA, et al. [facility] 2017, 70: 252-289 Performed By: #### CBCDIF, PT, CMP #### [facility] [address] [place], [place] [address] COMP METABOLIC PANEL Collected: 07/25/2018 Status: F Source: [place] 6:12 AM [facility] REPOSITORY TYPE CODE TESTS RESULT OUT OF REFERENCE UNITS RANGE LAB TP 6.3-8.0 g/dL Protein, Total 7.0 LAB ALB 3.9-4.9 g/dL Low Albumin 3.8 LAB CA 8.5-10.2 mg/dL Calcium, Total 9.0 LAB TBIL 0.2-1.3 mg/dL Bilirubin, High Total 4.6 LAB ALKP 38-113 U/L Alkaline High Phosphatase 270 LAB AST 14-40 U/L AST High 150 LAB GLU 74-99 mg/dL Glucose High 116 Result Comment: The [place] Diabetes Association (ADA) provides guidance for cutoff values for fasting glucose and random glucose. The ADA defines fasting as no caloric intake for at least 8 hours. Fas ting plasma glucose results between 100 to 125 mg/dL indicate increased risk for diabetes (prediabetes). Fasting plasma glucose results greater than or equal to 126 mg/dL meet the criteria for diagnosis of diabetes. In the absence of unequivocal hyperglycemia, results should be confirmed by repeat testing. In a patient with classic symptoms of hyperglycemia or hyperglycemic crisis, random plasma glucose results greater than or equal to 200 mg/dL meet the criteria for diagnosis of diabetes. Reference: Standards of Medical Care in Diabetes 2016, [place] [employer]. Diabetes Care. 2016.39(Suppl 1). LAB BUN 9-24 mg/dL Low BUN 8 LAB CRET 0.73-1.22 mg/dL Creatinine 0.82 LAB NA 136-144 mmol/L Sodium 138 LAB K 3.7-5.1 mmol/L Low Potassium 3.5 LAB CL 97-105 mmol/L Chloride 99 LAB CO2 22-30 mmol/L CO2 24 LAB AGAP 9-18 mmol/L Anion Gap 15 LAB ALT 10-54 U/L ALT High 284 LAB GFRAA eGFR- Amer. >60 LAB GFRNAA . eGFR-All Other Races >60 Result Comment: eGFR (Estimated GFR) Units of measure: mL/min/1.73 meters squared eGFR is derived from the reexpressed MDRD Study equation using the following parameters: serum creatinine, age, gender and race. The creatinine assay has been calibrated to be traceable to IDMS. An eGFR <60 mL/min/1.73m2 for >3 months is consistent with chronic kidney disease. Refer to KDOQI guidelines for clinical interpretation. In patients with unstable renal function, e.g. those with acute kidney injury, the eGFR may not accurately reflect actual GFR. Performed By: #### CBCDIF, PT, CMP #### [facility] [address] [place], [place] [address] XR CHEST 1V FRONTAL Observed: 07/24/2018 Status: F Source: [facility] 7:[address] [facility] REPOSITORY * * *Final Report* * * DATE OF EXAM: Jul 24 2018 7:07PM ILA 5376 - XR CHEST 1V FRONTAL PORT / PROCEDURE REASON: Chest pain or SOB, pleurisy or effusion suspected * * * * Physician Interpretation * * * * EXAMINATION: CHEST RADIOGRAPH (PORTABLE SINGLE VIEW AP) Exam Date/Time: 07/24/2018 7:07 PM Clinical History: Chest pain or SOB, pleurisy or effusion suspected, MQ: [id number] Comparison: 12/31/2009 RESULT: See impression. IMPRESSION: Lines, tubes, and devices: None. Lungs and pleura: Right hemidiaphragm remains elevated. Previously seen small pleural effusions and compressive atelectatic changes are no longer present. Lungs are mildly hypoinflated with no consolidation or mass lesion. No pneumothorax. Cardiomediastinal silhouette: Heart is normal. Thoracic aorta is tortuous. Other: . Road Freight Conductor: PSCB Transcribe Date/Time: Jul 24 2018 7:57P Dictated by : NORI HAWK MD This examination was interpreted and the report reviewed and electronically signed by: NORI HAWK MD on Jul 24 2018 7:58PM EST [id number] LEAD ELECTROCARDIOGRAM Observed: 07/24/2018 Status: F Source: [place] 3:24 PM [facility] REPOSITORY [place] [facility] [address] [place] [address] 12 Lead EKG 07/22/18 1330 MR#: [id number] Acct: [id number] Name: GUERRERO WILSON Rep #: [id number] : 1950 67 From: Lior Chapman MD Attending Dr: Status: DEP ER Ordering Dr: Valeria Denton MD Date: 07/22/18 Location: ED Sex: M C Admitted: Test Reason : AB PAIN Blood Pressure : / mmHG Vent. Rate : 058 BPM Atrial Rate : 058 BPM P-R Int : 146 ms QRS Dur : 100 ms QT Int : 430 ms P-R-T Axes : 026 002 034 degrees QTc Int : 422 ms Sinus bradycardia Otherwise normal ECG Confirmed by LIOR CHAPMAN MD ([id number]), editorial cartoonist ANGE TRIPATHI ([id number]) on 07/24/2018 3:24:03 PM Referred By: PETER Confirmed By:LIOR CHAPMAN MD 07/24/18 1524 Date Lior Chapman MD CC: Valeria Denton MD; Royce Springer MD Signed THERAPY NT Observed: 07/24/2018 Status: COMPLETED Source: [place] 2:03 PM [facility] REPOSITORY HNO ID: [id number] Author: Janette ChristyPtHien Paulson Service: Physical Therapy Author Type: Physical Therapist Type: Therapy (PT/OT/Speech/Resp) Filed: 07/24/2018 2:05 PM Note Text: PHYSICAL THERAPY MISSED VISIT SERVICE DATE: 07/24/2018 SERVICE TIME: 1400 to 1400 ROOM: [place] [address] Attempted Evaluation. Patient not seen due to Illness. Pt just returned from a procedure per nsg and feeling drowsy. Per pt I am goofy. Will f/u at another time for therapy as anesthesia wears off. Will f/u as approp. SIGNATURE: Janette Paulson PT PATIENT NAME: Guerrero Wilson DATE: July 24, 2018 TIME: 2:03 PM CASE MANAGEM Observed: 07/24/2018 Status: COMPLETED Source: [place] 1:59 PM [facility] REPOSITORY HNO ID: [id number] Author: Sapphire Patterson (Sw) Service: Care Management Author Type: Media Center Specialist Type: Care Mgt Progress Note Filed: 07/24/2018 2:01 PM Note Text: CARE MANAGEMENT PROGRESS NOTE SERVICE DATE: 07/24/2018 SERVICE TIME: 1:59 PM LOS: 2 days Needs Prior to Discharge: To Be Determined MARTIN attempted to meet with pt x3 today, but unable d/t pt off floor for procedure, and then when this insurance underwriter entered to talk to pt in the afternoon, he reported he was feeling goofy and tired. SW will attempt to meet with pt as able to complete assessment and assist with care coordination. Please call or page SW if any questions or concerns raise. SIGNATURE: ELLA Salazar PATIENT NAME: Guerrero Wilson DATE: July 24, 2018 TIME: 1:59 PM PAGER/CONTACT #: .[phone] ANES POST Observed: 07/24/2018 Status: COMPLETED Source: [place] 12:55 PM [facility] REPOSITORY HNO ID: [id number] Author: Elan Hadley Service: Anesthesiology Author Type: Anesthesiologist Type: Anesthesia PostOp Filed: 07/24/2018 12:56 PM Note Text: POST ANESTHESIA EVALUATION NOTE SERVICE DATE: 07/24/2018 SERVICE TIME: 5 : 1950 Vitals: 07/23/18 0600 07/23/18 1344 07/23/18213307/24/18 0510 Temp: 36.8 ?C (98.2 ?F) 36.7 ?C (98.1 ?F) 36.8 ?C (98.2 ?F) 36.4 ?C (97.6 ?F) 07/23/18 0607/23/18 1344 07/23/18213307/24/18 0510 BP: 128/76 109/71 125/83 124/77 07/23/18 0600 07/23/18 1344 07/23/18213307/24/18 0510 Pulse: 62 73 67 71 07/23/18 0600 07/23/18 1344 07/23/18213307/24/18 0510 Resp: 07/23/18 0600 07/23/18 1344 07/23/18213307/24/18 0510 SpO2: 97% 97% 96% 96% Validated Vital Signs: HR: 72; BP: 158/95; RR: 16; SpO2%: 95; Temperature: 36.0 POST ANES STATUS: No apparent anesthetic complications. The patient is appropriately hydrated with stable respiratory and cardiovascular status. Patient has safe and adequate airway control. The patient has appropriate pain relief and no significant post operative nausea or vomiting. The patient has achieved baseline mental status. Intra-Operative Events: No Significant Anesthesia Events Further assessment by Anesthesia Service: None Other Remarks: SIGNATURE: Elan Hadley MD PATIENT NAME: Guerrero Wilson DATE: July 24, 2018 TIME: 12:55 PM PAGER/CONTACT #: [phone] SURGICAL PATHOLOGY Observed: 07/24/2018 Status: F Source: [place] 12:[address] [facility] REPOSITORY Specimen originated from [facility] Specimen #: [id number] Submitting Physician: LUIS JOHNSON M.D. FINAL DIAGNOSIS Pancreas, head mass, fine needle biopsy - Predominantly blood with scant pancreatic parenchyma with fibrosis and chronic inflammation, see comment. ES/kmr 07/25/18 COMMENT The clinical impression of a head mass is noted. Given the degree of fibrosis as well as chronic inflammation, an IgG4 immunohistochemical stain was performed on block A1 to help exclude an IgG4-related disease process. The IgG4 stain is negative for IgG4 plasma cells. Multiple additional H&E levels were also performed with no definitive evidence of malignancy. If clinical concern remains, repeat biopsy may be helpful. This case was reviewed with Natalia Leigh M.D., who agrees with the diagnostic interpretation. Laboratory Developed Test (LDT) Disclaimer: Positive and negative controls stain appropriately. Performance characteristics of immunohistochemical, immunofluorescent and chromogenic in-situ hybridization tests have been determined by [facility]'s [facility] Pathology and Laboratory Medicine [place] (-[facility]) in a manner consistent with CLIA requirements. One or more of these tests have not been cleared or approved by the FDA. [facility] is regulated under CLIA as qualified to perform high-complexity testing. These tests are used for clinical purposes. They should not be regarded as investigational or for research. Alcira Dudley M.D. (Electronic Signature) SPECIMEN SUBMITTED A: FINE NEEDLE BIOPSY OF PANCREATIC HEAD MASS CLINICAL DATA PANCREATIC HEAD MASS R/O CA GROSS DESCRIPTION A. Received in formalin are multiple fitzpatrick, soft feathery segments of tissue aggregating to 3.0 x 0.5 x 0.1 cm. Totally submitted in one cassette. Gross examination performed at [facility], [address] [place] [address] 07/24/2018 7:56:02 PM Date of Report: 07/27/2018 Date of Procedure: 07/24/2018 Date of Receipt: 07/24/2018 Submitted by: LUIS JOHNSON M.D. Location: [facility] Diagnostic interpretation performed at [place] [address]. CYTOLOGY Observed: 07/24/2018 Status: F Source: [place] 11:[address] [facility] REPOSITORY Specimen originated from [facility] Specimen #: [id number] Submitting Physician: LUIS JOHNSON M.D. SPECIMEN SUBMITTED A: PANCREAS MASS, HEAD, FINE NEEDLE ASPIRATE(THINPREP, SMEARS AND CELL BLOCK) FINAL DIAGNOSIS A. PANCREAS MASS, HEAD, FINE NEEDLE ASPIRATE(THINPREP, SMEARS AND CELL BLOCK) Non-diagnostic aspirate sample (see comment). Comment: The aspirate consists predominantly of blood and gastrointestinal epithelial contaminant. There are minute fragments of pancreatic acinar tissue present. Please see [id number] for results of the concurrent core biopsy. Lashonda Arguelles MD (Electronic Signature) CLINICAL DATA Pancreatic head mass ADEQUACY INTERPRETATION *DIFF QUIK RAPID READ* A: #1-3: Non-diagnostic Dr. Bi Arguelles/Bi Villalpando Each letter in the above intra-procedural assessment refers to a unique site. The specific site is indicated in the final diagnosis portion of the report. Each number in this assessment references a discrete evaluation episode. Intra-procedural assessment performed at [facility], [facility] [place] [address] GROSS DESCRIPTION 30cc hazy pink Cytolyt with particles and 6 smears (3 Diff Quik, 3 pap) STAINS A: PANCREAS MASS, HEAD, FINE NEEDLE ASPIRATE(THINPREP, SMEARS AND CELL BLOCK) SMEARS RECEIVED x 6, THIN PREP [employer], CELL BLOCK, H&E, Initial Date of Report: 07/26/2018 Date of Procedure: 07/24/2018 Date of Receipt: 07/24/2018 Submitted by: LUIS JOHNSON M.D. Location: Q31 Diagnostic interpretation performed at [facility], [address] [place] [address], [place] [address]. PROGRESS Observed: 07/24/2018 Status: COMPLETED Source: [place] 10:[address] [facility] [place] REPOSITORY HNO ID: [id number] Author: Margaret Palencia Service: Hospital Medicine Author Type: Nurse Practitioner Type: Progress Notes Filed: 07/24/2018 10:07 AM Note Text: SERVICE DATE: 07/24/2018 SERVICE TIME: 10:07 AM HOSPITAL MEDICINE PROGRESS NOTE NIGHT AND WEEKEND COVERAGE: Days: [phone], please page me for patient issues. Nights: [phone], please page Team GI 4 - 8th floor: [phone] Interval HPI Interval Events: MASSIEL overnight T Bili 5.1 this AM from 9.2. LFTs around the same as yesterday. Patient going for EUS/ERCP today with GI. NPO for procedure. Denies chest pain, SOB, N/V/D/C, abdominal pain, fever or chills. Bladder scan x 1 wnl, will discontinue. Patient denies urinary symptoms or difficulty urinating. Urology reviewed CT and confirmed normal enlarged prostate, recommended continuing home finasteride and outpatient follow up as needed. OBJECTIVE BP 124/77 Pulse 71 Temp (Src) 97.6 (Oral) Resp 18 Ht 5' 11 (1.80m) Wt 187 lb 2.7 oz (84.9kg) SpO2 96% BMI 26.12 kg/(m2). Physical Exam Performed: GENERAL: Alert, no distress, cooperative SKIN: Skin texture, turgor normal. No rashes or lesions. Jaundiced LUNGS: Lungs clear to auscultation, Good diaphragmatic excursion CARDIAC: Normal S1 and S2; no rubs, murmurs, or gallops ABDOMEN: Abdomen soft, non-tender, BS normal, No masses or organomegaly EXTREMITIES: Extremities normal, no deformities, edema, clubbing or skin discoloration. Good capillary refill., No ulcers NEURO: Gait normal. Sensation grossly intact, Cranial nerves II-XII intact Lines, Drains, and Airways Line Peripheral 07/23/18 0010 Admission to Hospital Short Right Wrist 20 Gauge 1 day Reviewed lines, drains, AND airways. Need to be continued Medications: Reviewed Diagnostic tests reviewed: Most recent imaging Most recent labs CARE COORDINATION: 67 year old male with PMH significant for CAD, HLP, BPH who is admitted with obstructive jaundice and GI consulted for the same. ? The patient has been complaining of dark urine and light colored stools since 3 days. Yesterday the noted yellowness of the skin. He went to local ER where he was noted to have elevated T bili and CT was done showing mild dilation of CBD and intrahepatic bile ducts, normal spleen and mild prominence of uncinate process of pancreas. ? With that information, he was transferred to [facility] where labs showed T bili 9.2,alk phos 256, AST 159 and ALT 258. Looking back at his labs, he did have T bili elevation to ~4-5 in 2009 when he was admitted for STEMI. ? He quit smoking many years ago, denies significant alcohol intake. Denies any weight loss. ASSESSMENT AND PLAN Assessment AND Plan, all Hosp Problems Active Hospital Problems as of 07/24/2018 Noted - Resolved Hospital * (Principal)Obstructive jaundice 07/22/2018 - Present Current Assessment AND Plan Assessment: Acute Tbili 9.2 on admission; +jaundice and icterus on exam; denies abd pain; good appetite; no weight loss Of note; presented to OSH with dark urine, light colored stools and abd pain x3 days OSH CT a/p showed concern for possible pancreatic mass and possible prostate mass (CT uploaded to [facility] 07/23) Plan: - Continue Prophylactic Zosyn and IVF - GI consulted; appreciate recs - Patient going for EGD/EUS with anesthesia and also ERCP with anesthesia today. NPO for this - IgG4 levels in process to determine if he could have autoimmune pancreatitis Prostate mass 07/23/2018 - Present Current Assessment AND Plan Assessment: Acute Hx of BPH; follows with Keila Bill 12/2017 Prostate BIOPSY: 03/12/2016. FINAL DIAGNOSIS--> BENIGN OSH CT a/p showed concern re: prostate mass indenting bladder approx 4 cm Plan: - Urology was consulted and reviewed CT scan which appears to be normal enlarged prostate which is consistent with exam - Continue home finasteride 5 mg QD - PSA in process - Follow up PRN with Keila Salinas as outpatient for continued management of BPH Medication and Non-Pharmacologic VTE Prophylaxis/Anticoagulants Anticoagulant AND Antiplatelet Medications Start Dose Route Frequency Ordered Stop 07/22/182199 enoxaparin 40 mg injection (LOVENOX) (Surgical Moderate Risk ) 40 mg SUBCUTANEOUS DAILY 07/22/182150 -- 07/22/182199 vte non-pharmacologic prophylaxis - none indicated ([place]) VTE Prophylaxis: VTE prophylaxis appropriate Plan of care discussed with: Attending, Patient, Case Management and RN SIGNATURE: Margaret Palencia APRN.CNP PATIENT NAME: Guerrero Wilson DATE: July 24, 2018 TIME: 10:07 AM PAGER/CONTACT #: [phone] CONSULT PROG Observed: 07/24/2018 Status: COMPLETED Source: [place] 8:26 AM [facility] REPOSITORY HNO ID: [id number] Author: Mariel Wells Service: Gastroenterology Author Type: Resident Type: Consult Progress Note Filed: 07/24/2018 5:56 PM Note Text: GASTROENTEROLOGY CONSULT NOTE Guerrero Wilson [id number] Department of Gastroenterology AND Hepatology Date of Service: 07/24/18 Reason for Admission / Consultation: Obstructive Jaundice Gastroenterology Attending: Dr. Garza ? ? Impression: 67 year old male with PMH significant for CAD (septic myocarditis c/b STEMI in 2010), HLP, BPH who is admitted with obstructive jaundice. ? Based on reported OSH imaging, he has some prominence of pancreatic uncinate process and some ductal dilation which does raise the concern for pancreatic malignancy causing biliary obstruction too. - EUS performed this AM showed a pancreatic head mass, s/p FNA/B. Noted to have hyperechoic material consistent with sludge in CBD and GB. - HE also underwent ERCP which demonstrated a single localized biliary stricture in the CBD. S/p ventral PD stent placement, s/p sphincterotomy with one covered metal stent placed in CBD. Reporting some back pain, chest soreness and epigastric pain that is improving post ERCP. ? Recommendations: - Obtain CXR given chest soreness post EUS/ERCP. Would monitor closely and obtain CT scan if pt develops fevers/ leukocytosis. Sx most likely positional during ERCP given back pain. Would also monitor closely for pancreatitis as well. - Follow up on cytopathology results - KUB in 10 days to ensure passage of PD stent - Hepatobiliary consult. - Follow up on IgG4 levels Gastroenterology consult service will continue to follow along. INTERVAL HISTORY: - EUS performed this AM showed a pancreatic head mass, s/p FNA/B. Noted to have hyperechoic material consistent with sludge in CBD and GB. - HE also underwent ERCP which demonstrated a single localized biliary stricture in the CBD. S/p ventral PD stent placement, s/p sphincterotomy with one covered metal stent placed in CBD. - Doing well, reporting some back pain post procedure as well as some chest soreness and epigastric pain. PHYSICAL EXAM: BP 124/77 Pulse 71 Temp 36.4 ?C (97.6 ?F) (Oral) Resp 18 Ht 180.3 cm (5' 11) Wt 84.9 kg (187 lb 2.7 oz) SpO2 96% BMI 26.11 kg/m? General: In no acute distress. Abdomen: Soft, non-tender Neuro: Oriented x3, alert, cooperative Intake/Output Summary (Last 24 hours) at 07/24/18 0826 Last data filed at 07/24/18 0600 Gross per 24 hour Intake 2090 ml Output 0 ml Net 2090 ml MEDICATIONS: Current hospital medications: piperacillin-tazobactam 3.375 g in dextrose (iso-osmotic) 50 mL (ZOSYN) 3.375 g INTRAVENOUS q 6 H dextrose 5% in NaCl 0.45% iv infusion 75 mL/hr INTRAVENOUS CONTINUOUS finasteride 5 mg tab(s) (PROSCAR) 5 mg ORAL DAILY enoxaparin 40 mg injection (LOVENOX) 40 mg SUBCUTANEOUS DAILY LABORATOY: CBC, Coags, BMP, Mg, Phos Recent Labs 07/24/18 0651 07/23/1848 WBC 5.83 7.10 HB 16.3 16.4 HCT 46.5 45.5 PLT 223 215 INR -- 1.0 APTT -- 24.8 NA -- 139 K -- 4.1 CHLOR -- 104 CO2 -- 20* BUN -- 13 CREAT -- 0.78 GLUC -- 90 CA -- 9.2 MG -- 2.1 P -- 4.0 Liver Function, Amylase, AND Lipase Recent Labs 07/23/1848 TPROT 6.8 ALB 3.8* ALT 258* AST 159* ALKPHOS 256* TBILI 9.2* ASSESSMENT AND PLAN: Active Hospital Problems Diagnosis - Obstructive jaundice - Prostate mass SIGNATURE: Mariel Wells MD PGY4 Gastroenterology and Hepatology Fellow Pager: [phone] July 24, 2018 8:26 AM Observed: 07/24/2018 Status: F Source: [place] BLOOD CULTURE 6:57 AM [facility] REPOSITORY Sp. Request/Comment: - 2 OF 2 Culture Result - No growth 5 days Performed By: #### BLCUL #### [facility] [address] [place], [place] [address] CBC AND DIFFERENTIAL Collected: 07/24/2018 Status: F Source: [place] 6:51 AM [facility] REPOSITORY TYPE CODE TESTS RESULT OUT OF REFERENCE UNITS RANGE LAB WBC 3.70-11.00 k/uL WBC 5.83 LAB RBC 4.20-6.00 m/uL RBC 5.17 LAB HGB 13.0-17.0 g/dL Hemoglobin 16.3 LAB HCT 39.0-51.0 % Hematocrit 46.5 LAB MCV 80.0-100.0 fL MCV 89.9 LAB MCH 26.0-34.0 pG MCH 31.5 LAB MCHC 30.5-36.0 g/dL MCHC 35.1 LAB RDWCV 11.5-15.0 % RDW-CV 13.3 LAB PLTCT 150-400 k/uL Platelet Count 223 LAB MPV 9.0-12.7 fL Low MPV 8.8 LAB ANEUT % Neut% 57.8 LAB AANEUT 1.45-7.50 k/uL Abs Neut 3.37 LAB ALYMP % Lymph% 31.9 LAB AALYMP 1.00-4.00 k/uL Abs Lymph 1.86 LAB AMONO % [place]% 7.4 LAB AAMONO <0.87 k/uL Abs [place] 0.43 LAB AEOS % Eosin% 1.9 LAB AAEOS <0.46 k/uL Abs Eosin 0.11 LAB ABASO % Baso% 1.0 LAB AABASO <0.11 k/uL Abs Baso 0.06 LAB AUNRBC 0 /100 WBC NRBCs 0.0 LAB ABNRBC <0.01 k/uL Absolute nRBC <0.01 LAB DTYP DTYPE Auto Diff Performed By: #### CBCDIF, PT, CMP #### [facility] [address] [place] [address] PROTIME Collected: 07/24/2018 Status: F Source: [place] 6:51 AM [facility] REPOSITORY TYPE CODE TESTS RESULT OUT OF RANGE REFERENCE UNITS LAB PSEC 9.7-13.0 sec PT Sec 9.8 Result Comment: Result rechecked. Sample checked for a clot. LAB INR 0.9-1.3 Low PT INR <0.9 Result Comment: Vitamin K Antagonist (VKA) Therapeutic Range: INR 2 to 3 (Target INR of 2.5) Note: For patients treated with VKA drugs, such as warfarin, the [place] [employer] 2012 Guideline recommends a therapeutic INR range of 2 to 3 (target INR of 2.5). This recommendation includes high-risk patients with antiphospholipid syndrome with previous arterial or venous thromboembolism, current-generation mechanical or bioprosthetic aortic heart valve replacement. Note: Patients with mechanical aortic valve replacement and additional risk factors for thromboembolic events (atrial fibrillation, previous thromboembolism, LV dysfunction, hypercoagulable conditions) or an older generation mechanical AVR (i.e., ball in-Cage) or any mechanical MVR should have a INR therapeutic range of 2.5 to 3.5 (target INR of 3). Donn DIEZ, et al. Chest 2012, 141:7S-47S Van MORA et al. [facility] 2017, 70: 252-289 Result rechecked. Sample checked for a clot. Performed By: #### CBCDIF, PT, CMP #### [facility] [address] [place], [place] [address] COMP METABOLIC PANEL Collected: 07/24/2018 Status: F Source: [place] 6:[address] [facility] REPOSITORY TYPE CODE TESTS RESULT OUT OF REFERENCE UNITS RANGE LAB TP 6.3-8.0 g/dL Protein, Total 6.9 LAB ALB 3.9-4.9 g/dL Low Albumin 3.6 LAB CA 8.5-10.2 mg/dL Calcium, Total 8.9 LAB TBIL 0.2-1.3 mg/dL Bilirubin, High Total 5.1 LAB ALKP 38-113 U/L Alkaline High Phosphatase 275 LAB AST 14-40 U/L AST High 147 LAB GLU 74-99 mg/dL Glucose High 100 Result Comment: The [place] [employer] (ADA) provides guidance for cutoff values for fasting glucose and random glucose. The ADA defines fasting as no caloric intake for at least 8 hours. Fas ting plasma glucose results between 100 to 125 mg/dL indicate increased risk for diabetes (prediabetes). Fasting plasma glucose results greater than or equal to 126 mg/dL meet the criteria for diagnosis of diabetes. In the absence of unequivocal hyperglycemia, results should be confirmed by repeat testing. In a patient with classic symptoms of hyperglycemia or hyperglycemic crisis, random plasma glucose results greater than or equal to 200 mg/dL meet the criteria for diagnosis of diabetes. Reference: Standards of Medical Care in Diabetes 2016, [place] [employer]. Diabetes Care. 2016.39(Suppl 1). LAB BUN 9-24 mg/dL BUN 11 LAB CRET 0.73-1.22 mg/dL Creatinine 0.90 LAB NA 136-144 mmol/L Sodium 140 LAB K 3.7-5.1 mmol/L Potassium 3.7 LAB CL 97-105 mmol/L Chloride High 106 LAB CO2 22-30 mmol/L Low CO2 21 LAB AGAP 9-18 mmol/L Anion Gap 13 LAB ALT 10-54 U/L ALT High 279 LAB GFRAA eGFR- Amer. >60 LAB GFRNAA . eGFR-All Other Races >60 Result Comment: eGFR (Estimated GFR) Units of measure: mL/min/1.73 meters squared eGFR is derived from the reexpressed MDRD Study equation using the following parameters: serum creatinine, age, gender and race. The creatinine assay has been calibrated to be traceable to IDMS. An eGFR <60 mL/min/1.73m2 for >3 months is consistent with chronic kidney disease. Refer to KDOQI guidelines for clinical interpretation. In patients with unstable renal function, e.g. those with acute kidney injury, the eGFR may not accurately reflect actual GFR. Performed By: #### CBCDIF, PT, CMP #### [facility] [address] [place] [address] TYPE AND SCREEN Collected: 07/24/2018 Status: F Source: [place] 6:51 AM [facility] REPOSITORY TYPE CODE TESTS RESULT OUT OF REFERENCE UNITS RANGE LAB %ABR A ABO/RH(D) POSITIVE LAB % Antibody NEG Screen Performed By: #### TSCR #### [place] [id number] [place] [address] Observed: 07/24/2018 Status: F Source: [place] BLOOD CULTURE 6:51 AM [facility] REPOS[facility] Sp. Request/Comment: - 1 OF 2 Culture Result - No growth 5 days Performed By: #### BLCUL #### [place] [id number] [place] [address] PROGRESS Observed: 07/23/2018 Status: COMPLETED Source: [place] 12:19 PM [facility] RE[facility] HNO ID: [id number] Author: Stacie Badillo Service: Hospital Medicine Author Type: Nurse Practitioner Type: Progress Notes Filed: 07/23/2018 4:13 PM Note Text: SERVICE DATE: 07/23/2018 SERVICE TIME: 12:19 PM HOSPITAL MEDICINE PROGRESS NOTE NIGHT AND WEEKEND COVERAGE: Days: [phone], please page me for patient issues. Nights: [phone], please page Team [place]IM 4 - 8th floor: [phone] Week[place]: [place] [phone] HPI PLEASE NOTE THAT MARGARET PALENCIA CNP IS TAKING OVER CARE OF THIS PATIENT OF 07/24/18 AT 0730; PLEASE PAGE HER WITH ANY QUESTIONS. THANKS! SUBJECTIVE Interval Events: Patient resting in bed; NAD; jaundice. OSH records reviewed; OSH CT uploaded to [facility]; awaiting [facility] radiology 2nd read. NPO after midnite in prep for possible ERCP and EGD/EUS Tuesday. OBJECTIVE BP 128/76 Pulse 62 Temp (Src) 98.2 (Oral) Resp 18 Ht 5' 11 (1.80m) Wt 186 lb 11.7 oz (84.7kg) SpO2 97% BMI 26.06 kg/(m2). Physical Exam Performed: GENERAL: GENERAL APPEARANCE NCCC: well appearing, alert and in no acute distress HEART: HEART [facility]: regular rate and rhythm, no murmer, gallop or rub, normal, S1, S2, no lifts, heaves, or thrills, PMI not displaced LUNGS: LUNGS [facility]: clear to percussion and auscultation and no rales ABDOMEN: ABDOMEN: Soft, nontender, bowel sounds normal, no palpable organomegaly, no bruits. EXTREMITY: EXTREMITY EXAM: Normal exam of the extremities. No clubbing, cyanosis, or edema. SKIN: jaundice Lines, Drains, and Airways Line Peripheral 07/23/18 0010 Admission to Hospital Short Right Wrist 20 Gauge less than 1 day Reviewed lines, drains, AND airways. Need to be continued peripheral IV Medications: Reviewed Diagnostic tests reviewed: Most recent imaging Most recent labs CARE COORDINATION: 67 year old male with PMH significant for CAD, HLP, BPH who is admitted with obstructive jaundice and GI consulted for the same. ? The patient has been complaining of dark urine and light colored stools since 3 days. Yesterday the noted yellowness of the skin. He went to local ER where he was noted to have elevated T bili and CT was done showing mild dilation of CBD and intrahepatic bile ducts, normal spleen and mild prominence of uncinate process of pancreas. ? With that information, he was transferred to [facility] where labs showed T bili 9.2,alk phos 256, AST 159 and ALT 258. Looking back at his labs, he did have T bili elevation to ~4-5 in 2009 when he was admitted for STEMI. ? He quit smoking many years ago, denies significant alcohol intake. Denies any weight loss. ASSESSMENT AND PLAN Assessment AND Plan, all Hosp Problems Active Hospital Problems as of 07/23/2018 Noted - Resolved Hospital * (Principal)Obstructive jaundice 07/22/2018 - Present Current Assessment AND Plan Assessment: Acute Tbili 9.2 on admission; +jaundice and icterus on exam; denies abd pain; good appetite; no weight loss Of note; presented to OSH with dark urine, light colored stools and abd pain x3 days OSH CT a/p showed concern for possible pancreatic mass and possible prostate mass (CT uploaded to [facility] 07/23) Plan: STARTED on Prophylactic Zosyn and IVF GI consulted; appreciate recs--> -Please place order for EGD/EUS with anesthesia and also ERCP with anesthesia. The procedure timing cant unfortunately be confirmed till tomorrow but just in anticipation we can do procedure tomorrow, will recommend keeping him NPO after midnight - Can give him a diet today - Also check IgG4 levels to determine if he could have autoimmune pancreatitis Prostate mass 07/23/2018 - Present Current Assessment AND Plan Assessment: Acute Hx of BPH; follows with Keila Bill 12/2017 Prostate BIOPSY: 03/12/2016 FINAL DIAGNOSIS--> BENIGN OSH CT a/p showed concern re: prostate mass indenting bladder approx 4 cm Plan: -continue home Proscar 5mg Daily Urology consulted; awaiting recs PSA PENDING Bladder scan PENDING Medication and Non-Pharmacologic VTE Prophylaxis/Anticoagulants Anticoagulant AND Antiplatelet Medications Start Dose Route Frequency Ordered Stop 07/22/182199 enoxaparin 40 mg injection (LOVENOX) (Surgical Moderate Risk ) 40 mg SUBCUTANEOUS DAILY 07/22/182150 -- 07/22/182199 vte non-pharmacologic prophylaxis - none indicated ([place]) VTE Prophylaxis: VTE prophylaxis appropriate Plan of care discussed with: Attending and Patient SIGNATURE: Stacie Badillo APRN.CNP PATIENT NAME: Guerrero Wilson DATE: July 23, 2018 TIME: 12:19 PM PAGER/CONTACT #: [phone] CONSULT Observed: 07/23/2018 Status: COMPLETED Source: [place] 11:45 AM [facility] HNO ID: [id number] Author: Girish Pa Service: Urology Author Type: Physician Type: Consults Filed: 07/25/2018 8:18 AM Note Text: UROLOGY SERVICE CONSULT NOTE PATIENT NAME: Guerrero Wilson ASSESSMENT AND PLAN 67 year old male with PMH significant for BPH who is admitted with obstructive jaundice with a pancreatic lesion found on CT scan. Urology consulted for question regarding evaluation of enlarged prostate seen on CT. - CT reviewed, appears to be normal enlarged prostate, consistent with exam RECOMMENDATIONS: - Follow up PRN with Keila Salinas as outpatient for continued management of BPH - continue home finasteride - please page urology [phone] with any further urologic issues or questions. Discussed with chief resident, Dr. Ibarra. Will be staffed within 24 hours Julian Jung MD Resident Urology Pager [phone] After hours global transportation manager urology pager [phone] HPI Guerrero Wilson is a 67 year old male with PMH significant for BPH who is admitted with obstructive jaundice with a pancreatic lesion found on CT scan. Follows with Keila Salinas for BPH on finasteride with no recent changes in urination. 3 previous prostate biopsies (most recent 03/2016) negative for malignancy. Most recent PSA 2.43 (11/2017). CT read from OSH: normal urinary bladder. There is a large mass indenting the base of the bladder measuring about 4.7cm likely representing enlarged prostate indenting the base of the bladder. Bladder mass or other cannot be entirely excluded. One episode of microscopic hematuria following syncope (thought to be vasovagal) in 11/2017, resolved on repeat UA. Did not undergo further hematuria workup at that time. Has not had a cystoscopy. Distant hx of smoking (>40 years ago). No personal or family hx of malignancy. Urological review of systems reveals the patient Endorses hx of weak stream, incomplete emptying 2/2 BPH, improved on finasteride. No recent changes in urination. Denies history of recurrent UTIs. Denies history of hematuria except as noted in HPI, dysuria, nephrolithiasis, incontinence, malignancy or instrumentation. PAST MEDICAL HISTORY Diagnosis Date - ACL tear Right knee, chronic - BPH with obstruction/lower urinary tract symptoms 08/17/2006 - ELEVATED PROSTATE SPECIFIC ANTIGEN 08/17/2006 - ERECTILE DYSFUNCTION 08/13/2005 - Family history of malignant neoplasm of gastrointestinal tract - Hypertrophy of prostate with urinary obstruction and other lower urinary tract symptoms (LUTS) 08/17/2006 - Other and unspecified hyperlipidemia - Septic shock(785.52) 2009 E. coli - STEMI (ST elevation myocardial infarction) (HCC) 12/30/2009 Septic myocarditis PAST SURGICAL HISTORY Procedure Laterality Date - COLONOS W/REM POLYP SNARE 08/10/16 small adenomatous polyp - 5 year follow up - COLONOSCOP W/ OR W/O [facility] SPEC 11/09/2002 Colonoscopy - COLONOSCOP W/ OR W/O [facility]SH SPEC 05/24/2008 Normal Colonoscopy - LEFT HEART CATH,PERCUTANEOUS 12/30/2009 Cardiac cath, L heart - PAST SURGICAL HISTORY OF 1984 vasectomy - PAST SURGICAL HISTORY OF 05/23/1998 right knee arthroscopy FAMILY HISTORY Problem Relation Age of Onset - Colon Cancer Mother dec. age 72, - Cancer Father Brain,dec. age 71 - Diabetes Father - None Sister - Cancer Maternal Grandfather - Clotting Disorder Sister DVT Social History Substance Use Topics - Smoking status: Former Smoker Years: 4.00 Types: Cigarettes Quit date: 10/10/1974 - Smokeless tobacco: Never Used Comment: Quit 1974 1-2 cig. daily - Alcohol use Yes Comment: rare beer, rare wine MEDICATIONS: Prior to Admission Medications: finasteride (PROSCAR) 5 mg tablet Take 1 tablet by mouth once daily. sildenafil, antihypertensive, (REVATIO) 20 mg tablet Take 1 tablet by mouth as directed. 1-5 tablets taken on empty stomach and with sexual stimulation following. acyclovir (ZOVIRAX) 800 mg tablet Take 1 tablet by mouth four times daily. MULTIVITAMIN TAB Take one(1) tablet daily. Current hospital medications: dextrose 5% in NaCl 0.45% iv infusion 75 mL/hr INTRAVENOUS CONTINUOUS piperacillin-tazobactam 3.375 g in dextrose (iso-osmotic) 50 mL (ZOSYN) 3.375 g INTRAVENOUS q 6 H finasteride 5 mg tab(s) (PROSCAR) 5 mg ORAL DAILY enoxaparin 40 mg injection (LOVENOX) 40 mg SUBCUTANEOUS DAILY ALLERGIES: Patient has no known allergies. COMPLETE REVIEW OF SYSTEMS: GEN: (-)Fevers, weight loss HEENT: (-)congestion CV: no chest pain PULM: No cough or difficulty breathing GI: (-)diarrhea or constipation : See HPI MSK: (-)joint pain HEME: no famhx of abnormal bleeding or bruising ENDO: -DM SKIN: (-)new rashes ID: (-)recent illness PHYSICAL EXAM: BP 128/76 Pulse 62 Temp 36.8 ?C (98.2 ?F) (Oral) Resp 18 Ht 180.3 cm (5' 11) Wt 84.7 kg (186 lb 11.7 oz) SpO2 97% BMI 26.04 kg/m? Gen: No apparent distress, well-nourished Pulmonary: Clear to auscultation bilaterally, symmetric and equal chest rise, unlabored breathing on room air. Cardiac: Regular rate and rhythm Abdomen: Soft, non-distended, non-tender in all quadrants. : MALE EXAM: No scrotal lesions, cysts, rashes. Epididymis AND testes: normal size, position, without masses Urethra AND meatus: normal size AND position w/o lesion or discharge Penis: w/o plaques, lesions, masses, or deformities. Rectal Exam: Prostate: enlarged, symmetrical, nontender, w/o nodules. Sphincter tone normal, no mass. Extremities: no lower extremity edema IMAGING: CT A/P: consistent with normal enlarged prostate tissue. Julian Jung MD Resident Urology Pager [phone] After hours global transportation manager urology pager [phone] On 07/24/18,I reviewed the history and physical obtained as documented by the resident and participated in the gutiérrez components,discussed the case and the plans with the resident, with the following revision or confirmation: Patient denies difficulty voiding now. On BPH medications. Imaging reviewed. Intravesical protrusion of marked BPH noted. Bladder neoplasm not suspected. No further workup at this time. Discussed with patient and family. Girish Pa MD CONSULT Observed: 07/23/2018 Status: COMPLETED Source: [place] 8:[address] [facility] [place] REPOSITORY HNO ID: [id number] Author: Carmela Garza Service: Gastroenterology Author Type: Physician Type: Consults Filed: 07/23/2018 12:50 PM Note Text: INITIAL CONSULT GASTROENTEROLOGY SERVICE DATE: 07/23/2018 SERVICE TIME: 8:57 AM Consulting Service: GIM Opinion/advice regarding: Obstructive jaundice Subjective HPI: This is a 67 year old male with PMH significant for CAD, HLP, BPH who is admitted with obstructive jaundice and GI consulted for the same. The patient has been complaining of dark urine and light colored stools since 3 days. Yesterday the noted yellowness of the skin. He went to local ER where he was noted to have elevated T bili and CT was done showing mild dilation of CBD and intrahepatic bile ducts, normal spleen and mild prominence of uncinate process of pancreas. With that information, he was transferred to [facility] where labs showed T bili 9.2,alk phos 256, AST 159 and ALT 258. Looking back at his labs, he did have T bili elevation to ~4-5 in 2009 when he was admitted for STEMI. He quit smoking many years ago, denies significant alcohol intake. Denies any weight loss. Component Latest Ref Rng AND Units 01/19/2010 08/07/2010 09/21/2011 02/09/2013 01/28/2014 11/23/2017 06/28/2018 07/23/2018 Protein, Total 6.3 - 8.0 g/dL 7.2 7.2 7.2 6.9 6.9 7.5 6.7 6.8 Albumin 3.9 - 4.9 g/dL 3.9 4.5 4.2 4.3 4.1 3.8 (L) 4.1 3.8 (L) Calcium 8.5 - 10.2 mg/dL 9.8 10.0 9.7 9.6 9.5 9.5 9.3 9.2 Bilirubin, Total 0.2 - 1.3 mg/dL 1.4 2.1 (H) 1.6 (H) 2.3 (H) 1.3 2.5 (H) 1.4 (H) 9.2 (H) Alkaline Phosphatase 38 - 113 U/L 126 94 89 71 76 198 (H) 64 256 (H) AST 14 - 40 U/L 28 25 27 25 26 46 (H) 20 159 (H) Glucose 74 - 99 mg/dL 94 83 87 89 82 94 92 90 BUN 9 - 24 mg/dL 19 15 16 17 15 15 18 13 Creatinine 0.73 - 1.22 mg/dL 1.01 0.98 0.84 0.86 0.74 0.90 0.79 0.78 Sodium 136 - 144 mmol/L 138 140 138 138 140 136 140 139 Potassium 3.7 - 5.1 mmol/L 4.2 4.3 4.2 4.4 3.9 3.6 (L) 3.8 4.1 Chloride 97 - 105 mmol/L 101 104 102 103 104 96 (L) 106 (H) 104 CO2 22 - 30 mmol/L 25 28 27 23 22 (L) 25 23 20 (L) Anion Gap 9 - 18 mmol/L 12 8 9 12 14 15 11 15 ALT 10 - 54 U/L 41 27 37 16 23 91 (H) 15 258 (H) PAST MEDICAL HISTORY Diagnosis Date - ACL tear Right knee, chronic - BPH with obstruction/lower urinary tract symptoms 08/17/2006 - ELEVATED PROSTATE SPECIFIC ANTIGEN 08/17/2006 - ERECTILE DYSFUNCTION 08/13/2005 - Family history of malignant neoplasm of gastrointestinal tract - Hypertrophy of prostate with urinary obstruction and other lower urinary tract symptoms (LUTS) 08/17/2006 - Other and unspecified hyperlipidemia - Septic shock(785.52) 2009 E. coli - STEMI (ST elevation myocardial infarction) (HCC) 12/30/2009 Septic myocarditis PAST SURGICAL HISTORY Procedure Laterality Date - COLONOS W/REM POLYP SNARE 08/10/16 small adenomatous polyp - 5 year follow up - COLONOSCOP W/ OR W/O [facility] SPEC 11/09/2002 Colonoscopy - COLONOSCOP W/ OR W/O [facility] SPEC 05/24/2008 Normal Colonoscopy - LEFT HEART CATH,PERCUTANEOUS 12/30/2009 Cardiac cath, L heart - PAST SURGICAL HISTORY OF 1985 vasectomy - PAST SURGICAL HISTORY OF 05/23/1998 right knee arthroscopy FAMILY HISTORY Problem Relation Age of Onset - Colon Cancer Mother dec. age 72, - Cancer Father Brain,dec. age 71 - Diabetes Father - None Sister - Cancer Maternal Grandfather - Clotting Disorder Sister DVT Social History Substance Use Topics - Smoking status: Former Smoker Years: 4.00 Types: Cigarettes Quit date: 10/10/1974 - Smokeless tobacco: Never Used Comment: Quit 1974 1-2 cig. daily - Alcohol use Yes Comment: rare beer, rare wine MEDICATIONS: Prior to Admission Medications: finasteride (PROSCAR) 5 mg tablet Take 1 tablet by mouth once daily. sildenafil, antihypertensive, (REVATIO) 20 mg tablet Take 1 tablet by mouth as directed. 1-5 tablets taken on empty stomach and with sexual stimulation following. acyclovir (ZOVIRAX) 800 mg tablet Take 1 tablet by mouth four times daily. MULTIVITAMIN TAB Take one(1) tablet daily. Current hospital medications: dextrose 5% in NaCl 0.45% iv infusion 75 mL/hr INTRAVENOUS CONTINUOUS piperacillin-tazobactam 3.375 g in dextrose (iso-osmotic) 50 mL (ZOSYN) 3.375 g INTRAVENOUS q 6 H finasteride 5 mg tab(s) (PROSCAR) 5 mg ORAL DAILY enoxaparin 40 mg injection (LOVENOX) 40 mg SUBCUTANEOUS DAILY ALLERGIES No Known Allergies GI SPECIFIC REVIEW OF SYSTEMS: Negative for nausea, vomitting Negative for decreased appetite Negative for change in weight No alteration in bowel habits OTHER ROS: Negative for fever, night sweats, sleep problems, mood or depression. Objective PHYSICAL EXAM: BP 128/76 Pulse 62 Temp 36.8 ?C (98.2 ?F) (Oral) Resp 18 Ht 180.3 cm (5' 11) Wt 84.7 kg (186 lb 11.7 oz) SpO2 97% BMI 26.04 kg/m? GENERAL- AAO x 3, no distress HEENT: Moist mucus membranes, no carotid bruit LUNGS: Clear to auscultation bilaterally CARDIAC: S1, S2 heard, no murmur appreciated ABDOMEN: Soft, non-tender without guarding or rigidity, normal bowel sounds EXTREMITIES: No pedal edema DATA: Diagnostic Tests Reviewed for Today's Visit: Most recent labs and imaging results. Most recent labs Impression/Recommendations 67 year old male with PMH significant for CAD, HLP, BPH who is admitted with obstructive jaundice and GI consulted for the same. Based on reported OSH imaging, he has some prominence of pancreatic uncinate process and some ductal dilation which does raise the concern for pancreatic malignancy causing biliary obstruction too. To further confirm the etiology, he will need EUS with FNA depending on EUS findings and ERCP to assess for biliary obstruction and stent placement if needed. -Please place order for EGD/EUS with anesthesia and also ERCP with anesthesia. The procedure timing cant unfortunately be confirmed till tomorrow but just in anticipation we can do procedure tomorrow, will recommend keeping him NPO after midnight - Can give him a diet today - Also check IgG4 levels to determine if he could have autoimmune pancreatitis SIGNATURE: Stephanie Zhao MD PATIENT NAME: Guerrero Wilson DATE: July 23, 2018 TIME: 8:56 AM PAGER/CONTACT #: [phone] TEACHING PHYSICIAN NOTE OF PERSONAL INVOLVEMENT IN CARE I performed a history and physical examination of the patient and discussed management with the resident team. I reviewed the resident's notes and agree with documented findings and plan of care with my addendum and correction as noted below. 67 yo with jaundice, notes some epigastric discomfort. Notes he had Episode of feeling faint in prior [place] 11[place]27 with dark urine, elevated bilirubin and had us that showed stones, his lfts went back to normal. NO pruritis On exam nad Pos bs soft nt jaundiced A/p obstructive jaundice Would like to review the ct scan: I am told primary team has it to be uploaded and reread by radiology Plan for eus/ercp tomorrow Caremla Garza MD PhD July 23, 2018 12:47 PM CBC AND DIFFERENTIAL Collected: 07/23/2018 Status: F Source: [place] 12:49 AM [facility] REPOSITORY TYPE CODE TESTS RESULT OUT OF REFERENCE UNITS RANGE LAB WBC 3.70-11.00 k/uL WBC 7.10 LAB RBC 4.20-6.00 m/uL RBC 5.15 LAB HGB 13.0-17.0 g/dL Hemoglobin 16.4 LAB HCT 39.0-51.0 % Hematocrit 45.5 LAB MCV 80.0-100.0 fL MCV 88.3 LAB MCH 26.0-34.0 pG MCH 31.8 LAB MCHC 30.5-36.0 g/dL MCHC 36.0 LAB RDWCV 11.5-15.0 % RDW-CV 12.9 LAB PLTCT 150-400 k/uL Platelet Count 215 LAB MPV 9.0-12.7 fL Low MPV 8.6 LAB ANEUT % Neut% 62.8 LAB AANEUT 1.45-7.50 k/uL Abs Neut 4.43 LAB ALYMP % Lymph% 28.3 LAB AALYMP 1.00-4.00 k/uL Abs Lymph 2.01 LAB AMONO % [place]% 7.0 LAB AAMONO <0.87 k/uL Abs [place] 0.50 LAB AEOS % Eosin% 1.1 LAB AAEOS <0.46 k/uL Abs Eosin 0.08 LAB ABASO % Baso% 0.8 LAB AABASO <0.11 k/uL Abs Baso 0.06 LAB AUNRBC 0 /100 WBC NRBCs 0.0 LAB ABNRBC <0.01 k/uL Absolute nRBC <0.01 LAB DTYP DTYPE Auto Diff Performed By: #### CBCDIF, PTT, PT, CMP, MG1, PHOS #### [facility] [address], [place] [address] APTT Collected: 07/23/2018 Status: F Source: [place] 12:49 [facility] REPOSITORY TYPE CODE TESTS RESULT OUT OF RANGE REFERENCE UNITS LAB APTT 23.0-32.4 sec APTT 24.8 Result Comment: Unfractionated Heparin Therapeutic Ranges: Standard Heparin Nomogram: 53 to 78 seconds (anti-Xa level of 0.3 to 0.7 U/ml) Low Dose/ACS Nomogram: 49 to 67 seconds (anti-Xa level of 0.2 to 0.5 U/ml) Stroke Treatment Nomogram: 49 to 67 seconds (anti-Xa level of 0.2 to 0.5 U/ml) Note: The APTT therapeutic range has been determined for the current lot of laboratory APTT reagent in use throughout the [facility]. Specimen hemolyzed. Sample checked for a clot. Performed By: #### CBCDIF, PTT, PT, CMP, MG1, PHOS #### [facility] [address], [place] [address] PROTIME Collected: 07/23/2018 Status: F Source: [place] 12:49 [facility] REPOSITORY TYPE CODE TESTS RESULT OUT OF RANGE REFERENCE UNITS LAB PSEC 9.7-13.0 sec PT Sec 10.2 Result Comment: Specimen hemolyzed. Sample checked for a clot. LAB INR 0.9-1.3 PT INR 1.0 Result Comment: Vitamin K Antagonist (VKA) Therapeutic Range: INR 2 to 3 (Target INR of 2.5) Note: For patients treated with VKA drugs, such as warfarin, the [employer] [employer] 2012 Guideline recommends a therapeutic INR range of 2 to 3 (target INR of 2.5). This recommendation includes high-risk patients with antiphospholipid syndrome with previous arterial or venous thromboembolism, current-generation mechanical or bioprosthetic aortic heart valve replacement. Note: Patients with mechanical aortic valve replacement and additional risk factors for thromboembolic events (atrial fibrillation, previous thromboembolism, LV dysfunction, hypercoagulable conditions) or an older generation mechanical AVR (i.e., ball in-Cage) or any mechanical MVR should have a INR therapeutic range of 2.5 to 3.5 (target INR of 3). Donn GH, et al. Chest 2012, 141:7S-47S Van RA, et al. [facility] 2017, 70: 252-289 Specimen hemolyzed. Sample checked for a clot. Performed By: #### CBCDIF, PTT, PT, CMP, MG1, PHOS #### [facility] [address] [place], [place] [address] COMP METABOLIC PANEL Collected: 07/23/2018 Status: F Source: [place] 12:49 AM [facility] REPOSITORY TYPE CODE TESTS RESULT OUT OF REFERENCE UNITS RANGE LAB TP 6.3-8.0 g/dL Protein, Total 6.8 LAB ALB 3.9-4.9 g/dL Low Albumin 3.8 LAB CA 8.5-10.2 mg/dL Calcium, Total 9.2 LAB TBIL 0.2-1.3 mg/dL Bilirubin, High Total 9.2 LAB ALKP 38-113 U/L Alkaline High Phosphatase 256 LAB AST 14-40 U/L AST High 159 Result Comment: Results may be falsely increased due to interference by hemolysis. Suggest reorder as clinically indicated. LAB GLU 74-99 mg/dL Glucose 90 Result Comment: The [place] [employer] (ADA) provides guidance for cutoff values for fasting glucose and random glucose. The ADA defines fasting as no caloric intake for at least 8 hours. Fas ting plasma glucose results between 100 to 125 mg/dL indicate increased risk for diabetes (prediabetes). Fasting plasma glucose results greater than or equal to 126 mg/dL meet the criteria for diagnosis of diabetes. In the absence of unequivocal hyperglycemia, results should be confirmed by repeat testing. In a patient with classic symptoms of hyperglycemia or hyperglycemic crisis, random plasma glucose results greater than or equal to 200 mg/dL meet the criteria for diagnosis of diabetes. Reference: Standards of Medical Care in Diabetes 2016, [place] [employer]. Diabetes Care. 2016.39(Suppl 1). LAB BUN 9-24 mg/dL BUN 13 LAB CRET 0.73-1.22 mg/dL Creatinine 0.78 LAB NA 136-144 mmol/L Sodium 139 LAB K 3.7-5.1 mmol/L Potassium 4.1 Result Comment: Results may be falsely increased due to interference by hemolysis. Suggest reorder as clinically indicated. LAB CL 97-105 mmol/L Chloride 104 LAB CO2 22-30 mmol/L Low CO2 20 LAB AGAP 9-18 mmol/L Anion Gap 15 LAB ALT 10-54 U/L ALT High 258 Result Comment: Results may be falsely increased due to interference by hemolysis. Suggest reorder as clinically indicated. LAB GFRAA eGFR- Amer. >60 LAB GFRNAA . eGFR-All Other Races >60 Result Comment: eGFR (Estimated GFR) Units of measure: mL/min/1.73 meters squared eGFR is derived from the reexpressed MDRD Study equation using the following parameters: serum creatinine, age, gender and race. The creatinine assay has been calibrated to be traceable to IDMS. An eGFR <60 mL/min/1.73m2 for >3 months is consistent with chronic kidney disease. Refer to KDOQI guidelines for clinical interpretation. In patients with unstable renal function, e.g. those with acute kidney injury, the eGFR may not accurately reflect actual GFR. Performed By: #### CBCDIF, PTT, PT, CMP, MG1, PHOS #### [facility] [address] [id number] MAGNESIUM Collected: 07/23/2018 Status: F Source: [place] 12:49 AM [facility] REPOSITORY TYPE CODE TESTS RESULT OUT OF REFERENCE UNITS RANGE LAB MG 1.7-2.3 mg/dL Magnesium 2.1 Result Comment: Results may be falsely increased due to interference by hemolysis. Suggest reorder as clinically indicated. Performed By: #### CBCDIF, PTT, PT, CMP, MG1, PHOS #### [facility] [address] [place], [place] [address] PHOSPHORUS Collected: 07/23/2018 Status: F Source: [place] 12:49 AM [facility] REPOSITORY TYPE CODE TESTS RESULT OUT OF REFERENCE UNITS RANGE LAB PHOS 2.7-4.8 mg/dL Phosphorus 4.0 Result Comment: Results may be falsely increased due to interference by hemolysis. Suggest reorder as clinically indicated. Performed By: #### CBCDIF, PTT, PT, CMP, MG1, PHOS #### [facility] [address] [id number] PSA, DIAGNOSTIC Collected: 07/23/2018 Status: F Source: [place] 12:49 AM [facility] REPOSITORY TYPE CODE TESTS RESULT OUT OF REFERENCE UNITS RANGE LAB PSA 0.00-2.59 ng/mL PSA, Diagnostic 2.59 Result Comment: Total PSA test methodology used is the Electrochemiluminescence Immunoassay. Performed By: #### PSA #### [facility] [address] [address] ALK PHOS ISOENZYMES Collected: 07/23/2018 Status: F Source: [place] 12:49 AM [facility] REPOSITORY TYPE CODE TESTS RESULT OUT OF REFERENCE UNITS RANGE LAB ALKPS 38-113 U/L Alkaline High Phosphatase 255 LAB ALKBO 10.7-68.3 % Alk Phos Bone % 24.7 LAB ALKBF 12.9-52.6 U/L Bone High Fraction 63.0 LAB ALKLIV 26.0-86.2 % Alk Phos Liver % 75.3 LAB ALKLF 16.0-69.3 U/L Liver High Fraction 192.0 LAB ALKINT 0.0-24.2 % Alk Phos Intestine % 0.0 LAB ALKINF 0.0-16.3 U/L Intestine Fraction 0.0 Performed By: #### ALKISO #### [facility] [address] [address] NURSING PROG Observed: 07/23/2018 Status: COMPLETED Source: [place] 12:02 AM [facility] REPOSITORY HNO ID: [id number] Author: Belem ChristyRn) LAZARO Abraham Service: Nursing Author Type: Registered Nurse Type: Nursing Progress Note Filed: 07/23/2018 12:03 AM Note Text: Nursing Progress Note Patient Name: Guerrero Wilson Patient Location: [place] [address]/H081-25 Transfer Note: Patient transferred into room/unit H081-25 in stable condition. Actions taken: Alert, awake, oriented to time and place. Oriented to room and call light. No futher actions taken at this time. Will continue to monitor and check with patient. This note was completed by: Belem Abraham RN URINALYSIS Collected: 07/22/2018 Status: F Source: [place] 10:46 PM [facility] REPOSITORY TYPE CODE TESTS RESULT OUT OF RANGE REFERENCE UNITS LAB UCOL Yellow Abnormal Alert Color Ghazala Result Comment: Urine received in non-preservative tube. Interpret results with caution. To ensure optimal and accurate results, transfer urine to the BD Vacutainer Plus urine preservative tube. LAB [facility] Clear Clarity Clear LAB UGLUC Negative mg/dL Glucose, Urine Negative LAB UBIL Negative Bilirubin, Urine Negative LAB UKET Negative Ketones, Urine Negative LAB USPG 1.005-1.030 Specific [place], Ur 1.024 LAB UHGB Negative Hemoglobin/Blood,U Negative r LAB UPH 4.5-8.0 pH 6.0 LAB UPROT Negative mg/dL Protein, Urine Negative LAB UUROB Normal Abnormal Urobilinogen Alert Elevated LAB UNITR Negative Nitrites Negative LAB ULKEST Negative Leukest Negative LAB UCOM Comments SEE COMMENT Result Comment: Microscopic not warranted LAB UMCOM Urine SEE Bhavik Comment COMMENT Result Comment: N/A Performed By: #### UA #### [facility] [address], [place] [address] PROGRESS Observed: 07/22/2018 Status: COMPLETED Source: [place] 10:25 PM [facility] REPOSITORY HNO ID: [id number] Author: Asmita Zhao Service: General Internal Medicine Author Type: Physician Type: Progress Notes Filed: 07/22/2018 10:26 PM Note Text: SERVICE DATE: 07/22/2018 SERVICE TIME: 10:25 PM HOSPITAL MEDICINE HISTORY AND PHYSICAL PCP: Royce Springer MD NIGHT AND WEEKEND COVERAGE: Days: [phone], please page DAY TEAM for patient issues. Nights: [phone], please page [phone] for tonight, otherwise Night coverageTeam SUBJECTIVE Chief Complaint: Jaundice HPI: 67 YOM with hx of septic myocarditis c/b STEMI in 2010, HLD, BPH, is here with obstructive jaundice x 2 days - Had pale BM's, dark urine, - Ct scan - at [facility] today showed pancreatic mass. - No weight loss - No loss of appeitite or energy - H/o benign Brain tumor in dad and mother had malignant colon cancer - CBC, CMP (Tbil 1.4) was unremarkable in Jun 2018 during physical REVIEW OF SYSTEMS: (Only positives in BOLD and the rest is negative) General: Low fevers, chills, rigors, malaise, Neuro: Headache, confusion, syncope, paralysis, seizures or tremors, HEENT: Hearing or vision changes, nose bleeds or other nasal problems, goiter, neck pain/ swelling, +icterus Resp: Dry cough, wheezing, dyspnea, orthopnea, pnd Cardiac: Chest pain, palpitations, leg swelling, weight gain/loss, GI: Nausea, vomiting, abdominal pain, heart burn, constipation, diarrhea and pale stool, blood in stools or black stools, frequency or incontinence of stool : Dysuria, odynouria, frequency or incontinence of urine, discoloration of urine Musculoskeltal: Joint pain or swelling, back pain or muscle pain Skin: Skin lesions, rash, and itching, Jaundice skin Heme: Prolonged bleeding, bruising easily or swollen nodes, Endo: Cold or heat intolerance, polyuria, polydipsia, Travel, trauma SIGECAPS See HPI: Remaining ROS reviewed and negative. PAST MEDICAL HISTORY Diagnosis Date - ACL tear Right knee, chronic - BPH with obstruction/lower urinary tract symptoms 08/17/2006 - ELEVATED PROSTATE SPECIFIC ANTIGEN 08/17/2006 - ERECTILE DYSFUNCTION 08/13/2005 - Family history of malignant neoplasm of gastrointestinal tract - Hypertrophy of prostate with urinary obstruction and other lower urinary tract symptoms (LUTS) 08/17/2006 - Other and unspecified hyperlipidemia - Septic shock(785.52) 2009 E. coli - STEMI (ST elevation myocardial infarction) (HCC) 12/30/2009 Septic myocarditis PAST SURGICAL HISTORY Procedure Laterality Date - COLONOS W/REM POLYP SNARE 08/10/16 small adenomatous polyp - 5 year follow up - COLONOSCOP W/ OR W/O [facility] SPEC 11/09/2002 Colonoscopy - COLONOSCOP W/ OR W/O [facility] SPEC 05/24/2008 Normal Colonoscopy - LEFT HEART CATH,PERCUTANEOUS 12/30/2009 Cardiac cath, L heart - PAST SURGICAL HISTORY OF 1984 vasectomy - PAST SURGICAL HISTORY OF 05/23/1998 right knee arthroscopy FAMILY HISTORY Problem Relation Age of Onset - Colon Cancer Mother dec. age 72, - Cancer Father Brain,dec. age 71 - Diabetes Father - None Sister - Cancer Maternal Grandfather - Clotting Disorder Sister DVT Social History Substance Use Topics - Smoking status: Former Smoker Years: 4.00 Types: Cigarettes Quit date: 10/10/1974 - Smokeless tobacco: Never Used Comment: Quit 1974 1-2 cig. daily - Alcohol use Yes Comment: rare beer, rare wine Medications: Reviewed Allergies: ALLERGIES No Known Allergies OBJECTIVE: PHYSICAL EXAMINATION: BP 141/86 Pulse 63 Temp 36.3 ?C (97.4 ?F) (Oral) Resp 18 Ht 180.3 cm (5' 11) Wt 86.7 kg (191 lb 2.2 oz) SpO2 95% BMI 26.66 kg/m? General appearance: AANDO x 3, no acute distress, cooperative. Skin: No rash, turgor normal , icteric skin HEENT: EOMI, PEERLA, no icterus, normal hearing Neck: No JVD, supple without lymphadenopathy Lungs: CTA b/l, no wheezes, rales, rhonchi. No tenderness to palpation. Heart: + S1 S2, RRR, no murmur, gallop or rub Abdomen: Soft, NT, ND, + BS in 4Q, Extremities: NO Edema. No cyanosis, clubbing. Movement grossly normal Neurological: No gross focal neurologic deficits. Lines, Drains, and Airways No matching active lines, drains, or airways Reviewed lines, drains, AND airways. Need to be continued . Diagnostic tests reviewed: Most recent labs and imaging results ASSESSMENT AND PLAN Assessment AND Plan, all Hosp Problems Active Hospital Problems as of 07/22/2018 Noted - Resolved Hospital Obstructive jaundice 07/22/2018 - Present Current Assessment AND Plan History: No hx of jaundice or any other abdominal complaints in past +ve hx of colon polyp No hx of cancer +ve hx of colon cancer in mother Assessment: Based upon outside Ct abd/pel report: pancreatic mass obstructing the duct. --> could be benign vs malignant Patient denies abdominal pain Does have pale stool and dark urine No signs of cholangitis, sepsis Plan: - NPO and clear liquids after midnight [place] possible ERCP for biopsy, day team to have final decision with the help of GI specialist - LFT's, ALP, GGT - upload CT into system - will hold off on Abx as patient does not have signs of infection Pure hypercholesterolemia 08/13/2005 - Present Current Assessment AND Plan PLAN: Continue home statin FAMILY HX COLON CANCER 04/23/2008 - Present Current Assessment AND Plan Hx of colon cancer in mother BPH with obstruction/lower urinary tract symptoms 08/17/2006 - Present Current Assessment AND Plan PLAN: Continue finasteride Medication and Non-Pharmacologic VTE Prophylaxis/Anticoagulants Anticoagulant AND Antiplatelet Medications Start Dose Route Frequency Ordered Stop 07/22/182199 enoxaparin 40 mg injection (LOVENOX) (Surgical Moderate Risk ) 40 mg SUBCUTANEOUS DAILY 07/22/182150 -- 07/22/182199 vte non-pharmacologic prophylaxis - none indicated (nj,oh) VTE Prophylaxis: VTE prophylaxis appropriate Plan of care discussed with: Patient SIGNATURE: Asmita Zhao MD PATIENT NAME: Guerrero Wilson DATE: July 22, 2018 TIME: 10:25 PM PAGER/CONTACT #: [id number] EMERGENCY DEPARTMENT Observed: 07/22/2018 Status: F Source: [place] SUMMARY 5:55 PM [facility] REPOSITORY [place] Medical Records Department [address] [place] [id number] Emergency Department Summary 07/22/18 1258 MR#: [id number] Acct: [id number] Name: GUERRERO WILSON Rep #: [id number] : 1950 67 From: Valeria Denton MD PCP: Royce Springer MD Status: REG ER - ER Visit Summary Date of Service: 07/22/18 Chief Complaint: Yellow skin and abdominal discomfort History of Present Illness: The patient is a 67 M who presents for 2 days of dark urine, light-colored stool, and a generalized abdominal discomfort with yellowing of the skin today. Patient denies overt abdominal pain and cannot describe how he feels, but just feels uncomfortable in the abdomen. Skin noted to be yellow today. He has no history of travel, exotic foods, any concern for exposure to hepatitis, no fever or any other complaints. Patient has no medical history other than BPH. No recent medication changes. Patient does not drink alcohol. Physical Examination: Vital signs: afebrile, hemodynamically stable, no hypoxia on room air General: well nourished, well developed, in no distress Skin: warm, dry, no rash, no pallor, diffuse jaundice HEENT: normocephalic and atraumatic; PERRL, EOMI, moist mucous membranes, scleral icterus Cardiovascular: regular rate and rhythm without murmurs, no peripheral edema, 2+ pulses all distal extremities Respiratory: No increased work of breathing, lungs are clear to auscultation bilaterally, no rales, rhonchi or wheezing Abdominal: Abdomen is soft, nontender with normoactive bowel sounds, no guarding or rebound, no masses MSK: Moves all extremities, no deformities, normal strength Neuro: Awake and alert, oriented 4. No facial droop, sensation and motor function intact and symmetric Test Results: Abnormal Lab Results WBC 6.3 RBC 5.35 Hgb 16.9 H Hct 48.6 MCV 90.8 MCH 31.6 MCHC 34.8 RDW 13.2 RDW Differential 43.6 WBC RBC Hgb Hct MCV MCH MCHC RDW RDW Differential Plt Count MPV Immature Gran % (Auto) Clinical Impression(s) from Imaging Studies Abdomen/Pelvis CT 07/22/18 12:56 IMPRESSION: Enlarged prostate with large mass indenting the left side of the bladder base as described above which could represent enlarged prostate or prostatic mass protruding into the base of the bladder. Bladder mass however cannot be entirely excluded. Fatty infiltration of the liver. Mild dilatation of the intrahepatic biliary ducts and the common bile duct without visualized retained stone in the distal common bile duct. Mild prominence of the uncinate process of the pancreas. Further investigation is needed to exclude small mass. Chronic pancreatitis. Diverticulosis without evidence of acute diverticulitis. Electronically Signed: Saji Abel MD at 15:27 EDT Tel , Service support , Medications Given Discontinued Medications Sodium Chloride () 1,000 mls @ 1,000 mls/hr IV .Q1H ONE Stop: 07/22/18 13:53 Last Admin: 07/22/18 14:09 Dose: 1,000 mls/hr Emergency Department Course and Treatment: Patient was offered and declined pain medication, as he is currently not having any significant discomfort or nausea. Workup for painless jaundice was performed, with no leukocytosis or anemia, no electrolyte derangements. Hepatic function remarkable for elevated total bilirubin of 10.3, direct bilirubin 5.79, and mild transaminitis. Lipase was within normal limits. Troponin negative. EKG showed no ischemic process. CT the abdomen and pelvis was performed and showed findings consistent with chronic pancreatitis and a questionable mass in the pancreatic head. it also showed an enlarged prostate versus prostate mass, which is consistent with patient's history of known BPH. Patient was discussed with Dr. Luna, who recommended patient be transferred for specialty evaluation, given that this is likely going to be pancreatic cancer and he will require GI specialist evaluation. Patient requested transfer to [facility]. Patient was discussed with Dr. Bledsoe, and will be transferred to the [facility] for specialist evaluation. Plan was discussed with the patient and and all questions were answered. Patient again was offered medication for any pain or nausea, and he at this time declined as he is having no symptoms. Treatment Plan: [] Disposition: [] Impression: Painless jaundice, pancreatic mass, concern for pancreatic cancer This note was generated with Advisity dictation software. It may contain incorrect words, spelling, and punctuation that were not noted in review of the chart prior to signing ED Disposition - Plan for ED Patient: Chief Complaint: Abd Pain Referrals: Royce Springer MD [Primary Care Provider] - What to do if you have Problems For any increased pain, shortness of breath, bleeding, nausea or vomiting, chest pain, or any unexpected problems, contact your Primary Care Provider. Call [facility] ([phone]) or report to the closest Emergency Room. Call 911 if necessary. 07/22/18 1489 <Electronically signed by Valeria Denton MD> Date Valeria Denton MD Cosigner Signature (If Indicated): Date CC: Royce Springer MD CBC W/DIFF, AUTOMATED Collected: 07/22/2018 Status: F Source: [place] 1:55 PM [facility] REPOSITORY TYPE CODE TESTS RESULT OUT OF RANGE REFERENCE UNITS LAB L100.1000 4.4-11.0 K/mm3 Normal WBC 6.3 LAB L100.1200 4.6-6.2 M/mm3 Normal RBC 5.35 LAB L100.1300 13.0-16.5 g/dl High HGB 16.9 LAB L100.1400 40-54 % Normal HCT 48.6 LAB L100.1500 80-94 fL Normal MCV 90.8 LAB L100.1600 27.0-32.0 pg Normal MCH 31.6 LAB L100.1700 32-36 g/gl Normal MCHC 34.8 LAB L100.1810 11.6-14.6 % Normal RDW CV 13.2 LAB L100.1820 35.1-43.9 fl Normal RDW SD 43.6 LAB L100.1900 150-450 K/mm3 Normal PLT 200 LAB L100.2000 6.2-12.0 fl Normal MPV 9.2 LAB L100.2100 47-70 % Normal NEUT% 57.9 LAB L100.2200 19-41 % Normal LY% 34.1 LAB L100.2300 0-10 % Normal MONO% 5.7 LAB L100.2400 0-5 % Normal EO% 1.4 LAB L100.2500 0-1 % Normal BASO% 0.6 LAB L100.2550 0.0-0.9 % Normal IM GRAN % 0.300 Result Comment: IG% - Immature Granulocytes (promyelocytes, myelocytes and metamyelocytes) > 1% indicates that a LEFT SHIFT is Present. LAB L100.2620 2.0-7.7 X10 3/uL Normal Absolute Neut 3.6 LAB L100.2720 0.83-4.51 X10 3/ul Normal Absolute Lymph 2.14 Performed By: #### L100.0100 #### [facility] [address] [place], [address] URINALYSIS, COMPLETE Collected: 07/22/2018 Status: F Source: [place] 1:55 PM [facility] REPOSITORY Order Comment: How was Urine Obtained? CLEAN CATCH TYPE CODE TESTS RESULT OUT OF RANGE REFERENCE UNITS LAB L400.3000 Yellow COLOR Normal Yellow LAB L400.3050 Clear Normal CLARITY Sl. Cloudy LAB L400.3200 Normal mg/dl Normal GLUCOSE, UR Normal LAB L400.3300 Negative mg/dL High BILIRUBIN URINE 3 Result Comment: COLOR OF URINE MAY AFFECT DIPSTICK RESULTS. LAB L400.3400 Negative mg/dl Normal KETONE UR Negative LAB L400.3465 1.002-1.030 Normal SP.GR. DIPSTX 1.015 LAB L400.3550 5.0 - 8.0 pH Normal UR 5.0 LAB L400.3600 Negative mg/dl Normal PROT DIPSTX Negative LAB L400.3700 Normal mg/dl High UROBILI 4 LAB L400.3750 Negative Normal NITRITE UR Negative LAB L400.3780 Negative /ul High OCCULT 10 BLOOD-UR LAB L400.3800 Negative /ul High LEUK ESTERASE 25 LAB L400.4050 0-5 /hpf Normal WBC 0-5 SEEN LAB L400.4100 0-5 /hpf Normal RBC-UA 0 SEEN LAB L400.4150 0-5 /hpf Normal SQUAM EPI 0-5 SEEN LAB L400.4300 None Seen /hpf Normal BACTERIA RARE LAB L400.4350 <or=2+ /hpf Normal MUCUS, URINE RARE LAB L400.4850 None Seen /hpf Normal OTHER CRYSTALS 2+ Result Comment: BILIRUBIN CRYSTALS Performed By: #### L400.0001 #### [facility] [address] [place], [place], [address] BASIC METABOLIC Collected: 07/22/2018 Status: F Source: [place] PROFILE (BMP) 1:55 PM [facility] REPOSITORY TYPE CODE TESTS RESULT OUT OF RANGE REFERENCE UNITS LAB L501.0100 74-106 mg/dL Normal GLU 82 Result Comment: Please note revised GLUCOSE reference range effective 2017. LAB L501.1000 7-18 mg/dL Normal BUN 15 LAB L501.1100 0.70-1.30 mg/dL Normal CREAT,SERUM 1.02 Result Comment: Moderate Icterus, Result may be falsely decreased. The validity of the calculated GFR AND GFRAA in patients over 70 years has not been determined. Clinical correlation is essential. LAB L501.1110 >60 mL/min Normal EST GFR 77 Result Comment: Non- GFR Calc LAB L501.1115 >60 mL/min Normal EST GFR - AA 94 Result Comment: GFR Calc LAB L501.1255 ml/min Normal Estimated CRCL 74.85 LAB L501.1300 10-20 RATIO Normal BUN/CRE 14.7 LAB L501.2200 8.5-10 mg/dL Normal .1 CA 9.0 LAB L501.5300 136-14 mmol/L Normal 5 NA 137 LAB L501.5600 3.5-5. mmol/L Normal 1 K 4.3 Result Comment: Moderate Hemolysis, Result may be falsely increased. LAB L501.5900 98-107 mmol/L Normal CL 104 LAB L501.6100 21.0-32.0 mmol/L Normal CO2 26.0 LAB L501.6200 5-15 Normal 7 GAP Performed By: #### L500.2500, L500.3400, L501.2400, L501.2450, L501.4010 #### [facility] [address] [place], [address] LIVER PROFILE Collected: 07/22/2018 Status: F Source: [place] 1:55 PM [facility] REPOSITORY TYPE CODE TESTS RESULT OUT OF RANGE REFERENCE UNITS LAB L501.1500 6.4-8.2 g/dL Normal T PROT 7.9 Result Comment: Moderate Icterus, Result may be falsely decreased. LAB L501.1800 3.2-5.0 g/dL Normal ALB 3.6 LAB L501.1950 2.2-4.2 g/dL High GLOB 4.3 LAB L501.4100 15-37 U/L High AST 181 Result Comment: Moderate Hemolysis, Result may be falsely increased. LAB L501.4305 45-117 U/L High ALK P 284 LAB L501.4405 16-61 U/L High ALT 333 LAB L501.4600 0.20-1.00 mg/dL High T BILI 10.30 LAB L501.4700 0.00-0.30 mg/dL High D BILI 5.79 Performed By: #### L500.2500, L500.3400, L501.2400, L501.2450, L501.4010 #### [facility] [address] [place], [address] AMYLASE Collected: 07/22/2018 Status: F Source: [place] 1:55 PM [facility] REPOSITORY TYPE CODE TESTS RESULT OUT OF RANGE REFERENCE UNITS LAB L501.2400 25-115 U/L Normal JAVY 84 Performed By: #### L500.2500, L500.3400, L501.2400, L501.2450, L501.4010 #### [facility] [address] [place], [place], [address] LIPASE Collected: 07/22/2018 Status: F Source: [place] 1:55 PM [facility] REPOSITORY TYPE CODE TESTS RESULT OUT OF RANGE REFERENCE UNITS LAB L501.2450 73-393 U/L Normal LIPASE 208 Performed By: #### L500.2500, L500.3400, L501.2400, L501.2450, L501.4010 #### [facility] [address] [place], [address] TROPONIN-I Collected: 07/22/2018 Status: F Source: [place] 1:55 PM [facility] REPOSITORY TYPE CODE TESTS RESULT OUT OF RANGE REFERENCE UNITS LAB L501.4010 <0.045 ng/mL Normal < 0.015 TROPONIN-I Result Comment: TROPONIN-I EXPECTED VALUES <0.045 Negative 0.045 - 0.590 Consistent with Cardiac Damage > OR = 0.600 Critical Value Not every elevated troponin is indicative of MD. These values should be used with clinical judgement in examining the patient's clinical picture for diagnosis. To establish a diagnosis of MD versus myocardial injury, there must be a demonstrated rise and/or fall in the troponin values, in addition to ischemic symptoms, EKG changes, new regional wall motion abnormality, and/or angiographical evidence. PLEASE NOTE: REFERENCE RANGES EDITED 18 Performed By: #### L500.2500, L500.3400, L501.2400, L501.2450, L501.4010 #### [facility] [address] [place], [address] LACTIC ACID Collected: 07/22/2018 Status: F Source: [place] 1:55 PM [facility] REPOSITORY Order Comment: Yes/No query for Sepsis Lactate Rule Y TYPE CODE TESTS RESULT OUT OF RANGE REFERENCE UNITS LAB L503.6005 0.4-2.0 mmol/L Normal LACTIC ACID 0.9 Performed By: #### L503.6005 #### [facility] [address] [facility] [place], [address] HEPATITIS PANEL ACUTE Collected: 07/22/2018 Status: F Source: [place] 1:55 PM [facility] REPOSITORY TYPE CODE TESTS RESULT OUT OF RANGE REFERENCE UNITS LAB L3100.0200 Negative Normal HEP A Negative IgM 6734 LAB L3100.0400 Negative Normal HB Negative SURF AG LAB L3100.0440 Negative Normal HB Negative CORE [id number] LAB L3100.0650 0.0-0.9 s/co ratio Normal HEP C <0.1 AB Result Comment: Negative: < 0.8 Indeterminate: 0.8 - 0.9 Positive: > 0.9 The CDC recommends that a positive HCV antibody result be followed up with a HCV Nucleic Acid Amplification test (811004). Performed at: - [facility] [address] [id number] Naturalization Examiner: Lucio Castro PhD, Phone: [phone] Performed By: #### L3000.0375 #### [facility] (refer to report for specific site) refer to report for address and phone number ABDOMEN/PELVIS WITH Observed: 07/22/2018 Status: F Source: [place] CONTRAST 12:58 PM [facility] REPOSITORY [place] Imaging Services [address] [place] [address] Abdomen/Pelvis WITH Contrast MR#: [id number] Acct: [id number] Name: GUERRERO WILSON Rep #: [id number] : 1950 M 67 From: Saji Abel MD PCP: Royce Springer MD Status: REG ER Study: Abdomen/Pelvis WITH Contrast Date of Exam: 07/22/18 Exam# [id number] Ordering Dr: Valeria Denton MD STUDY: CT ABDOMEN AND PELVIS WITH CONTRAST REASON FOR EXAM: Male, 67 years old. Abdominal pain. RADIATION DOSAGE (If Supplied By Facility): CTDIvol = ( 14.10 ) mGy, DLP = ( 826.40 ) mGycm TECHNIQUE: Transaxial images were obtained from the dome of the diaphragm to the symphysis pubis without oral contrast. 10 ml of Isovue 300 contrast was administered. Sagittal and coronal images were reconstructed. Individualized dose optimization techniques were used for this CT. COMPARISON: None. FINDINGS: The visualized lung bases are unremarkable. The visualized portions of the heart are within normal limits. There is diffuse fatty infiltration of the liver. No focal lesion is seen. There is no evidence of gallstones. There is mild prominence of the intrahepatic biliary ducts and the common bile duct. Normal spleen. There are pancreatic calcifications in the distribution of the ducts consistent with chronic pancreatitis. There is mild prominence of the uncinate process of the pancreatic head. Normal bilateral adrenal glands. Normal right kidney. Normal left kidney. Normal visualized stomach. There are nonspecific fluid-filled small bowel loops. There is no evidence of small bowel obstruction. There is fecal retention. There is mild diverticulosis of the descending and sigmoid colon. There is no evidence of acute diverticulitis. The appendix is visualized and appears normal. Normal abdominal aorta. Normal inferior vena cava. Normal retroperitoneum. Normal urinary bladder. There is a large mass indenting the base of the bladder measuring about 4.7 cm likely representing enlarged prostate indenting the base of the bladder. Bladder mass or other cannot be entirely excluded. Urologic consultation is recommended. Normal abdominal wall. There are degenerative changes of the visualized lumbar spine. CT/Abdomen/Pelvis WITH Contrast IMPRESSION: Enlarged prostate with large mass indenting the left side of the bladder base as described above which could represent enlarged prostate or prostatic mass protruding into the base of the bladder. Bladder mass however cannot be entirely excluded. Fatty infiltration of the liver. Mild dilatation of the intrahepatic biliary ducts and the common bile duct without visualized retained stone in the distal common bile duct. Mild prominence of the uncinate process of the pancreas. Further investigation is needed to exclude small mass. Chronic pancreatitis. Diverticulosis without evidence of acute diverticulitis. Electronically Signed: Saji Abel MD at 15:27 EDT Tel , Service support , CC: Valeria Denton MD; Royce Springer MD Road Freight Conductor: Signed SR-ABDOMEN/PELVIS WITH Observed: 07/22/2018 Status: F Source: [place] CONTRAST IMPORT 12:00 AM [facility] REPOSITORY Images were obtained outside of [facility] [id number] Observed: 07/22/2018 Status: COMPLETED Source: [place] 12:00 AM [facility] REPOSITORY Patient:Guerrero Wilson MRN: <[id number]> Height:5' 11(1.803 m) Weight:187 lb 2.7 oz (84.9 kg) Outpatient Medications as of 07/24/18: finasteride (PROSCAR) 5 mg tablet sildenafil, antihypertensive, (REVATIO) 20 mg tablet MULTIVITAMIN TAB Admission/Clinic Administered Medications as of 07/24/18: piperacillin-tazobactam 3.375 g in dextrose (iso-osmotic) 50 mL (ZOSYN) dextrose 5% in NaCl 0.45% iv infusion finasteride 5 mg tab(s) (PROSCAR) enoxaparin 40 mg injection (LOVENOX) Problem List: Pure hypercholesterolemia [E78.00] BPH with obstruction/lower urinary tract symptoms [N40.1, N13.8] Elevated prostate specific antigen (PSA) [R97.20] FAMILY HX COLON CANCER [Z80.0] Polyp of colon [K63.5] Ulnar neuropathy at wrist, 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 Nights: [phone], please page [phone] for tonight, otherwise Night coverageTeam SUBJECTIVE Chief Complaint: Jaundice HPI: 67 YOM with hx of septic myocarditis c/b STEMI in 2009, HLD, BPH, is here with obstructive jaundice x 2 days - Had pale BM's, dark urine, - Ct scan - at [facility] today showed pancreatic mass. - No weight loss - No loss of appeitite or energy - H/o benign Brain tumor in dad and mother had malignant colon cancer - CBC, CMP (Tbil 1.4) was unremarkable in Jun 2018 during physical REVIEW OF SYSTEMS: (Only positives in BOLD and the rest is negative) General: Low fevers, chills, rigors, malaise, Neuro: Headache, confusion, syncope, paralysis, seizures or tremors, HEENT: Hearing or vision changes, nose bleeds or other nasal problems, goiter, neck pain/ swelling, +icterus Resp: Dry cough, wheezing, dyspnea, orthopnea, pnd Cardiac: Chest pain, palpitations, leg swelling, weight gain/loss, GI: Nausea, vomiting, abdominal pain, heart burn, constipation, diarrhea and pale stool, blood in stools or black stools, frequency or incontinence of stool : Dysuria, odynouria, frequency or incontinence of urine, discoloration of urine Musculoskeltal: Joint pain or swelling, back pain or muscle pain Skin: Skin lesions, rash, and itching, Jaundice skin Heme: Prolonged bleeding, bruising easily or swollen nodes, Endo: Cold or heat intolerance, polyuria, polydipsia, Travel, trauma SIGECAPS See HPI: Remaining ROS reviewed and negative. PAST MEDICAL HISTORY Diagnosis Date - ACL tear Right knee, chronic - BPH with obstruction/lower urinary tract symptoms 08/17/2006 - ELEVATED PROSTATE SPECIFIC ANTIGEN 08/17/2006 - ERECTILE DYSFUNCTION 08/13/2005 - Family history of malignant neoplasm of gastrointestinal tract - Hypertrophy of prostate with urinary obstruction and other lower urinary tract symptoms (LUTS) 08/17/2006 - Other and unspecified hyperlipidemia - Septic shock(785.52) 2009 E. coli - STEMI (ST elevation myocardial infarction) (HCC) 12/30/2009 Septic myocarditis PAST SURGICAL HISTORY Procedure Laterality Date - COLONOS W/REM POLYP SNARE 08/10/16 small adenomatous polyp - 5 year follow up - COLONOSCOP W/ OR W/O [facility] SPEC 11/09/2002 Colonoscopy - COLONOSCOP W/ OR W/O [facility] SPEC 05/24/2008 Normal Colonoscopy - LEFT HEART CATH,PERCUTANEOUS 12/30/2009 Cardiac cath, L heart - PAST SURGICAL HISTORY OF 1984 vasectomy - PAST SURGICAL HISTORY OF 05/23/1998 right knee arthroscopy FAMILY HISTORY Problem Relation Age of Onset - Colon Cancer Mother dec. age 72, - Cancer Father Brain,dec. age 71 - Diabetes Father - None Sister - Cancer Maternal Grandfather - Clotting Disorder Sister DVT Social History Substance Use Topics - Smoking status: Former Smoker Years: 4.00 Types: Cigarettes Quit date: 10/10/1974 - Smokeless tobacco: Never Used Comment: Quit 1974 1-2 cig. daily - Alcohol use Yes Comment: rare beer, rare wine Medications: Reviewed Allergies: ALLERGIES No Known Allergies OBJECTIVE: PHYSICAL EXAMINATION: BP 141/86 Pulse 63 Temp 36.3 ?C (97.4 ?F) (Oral) Resp 18 Ht 180.3 cm (5' 11) Wt 86.7 kg (191 lb 2.2 oz) SpO2 95% BMI 26.66 kg/m? General appearance: AANDO x 3, no acute distress, cooperative. Skin: No rash, turgor normal , icteric skin HEENT: EOMI, PEERLA, no icterus, normal hearing Neck: No JVD, supple without lymphadenopathy Lungs: CTA b/l, no wheezes, rales, rhonchi. No tenderness to palpation. Heart: + S1 S2, RRR, no murmur, gallop or rub Abdomen: Soft, NT, ND, + BS in 4Q, Extremities: NO Edema. No cyanosis, clubbing. Movement grossly normal Neurological: No gross focal neurologic deficits. Lines, Drains, and Airways No matching active lines, drains, or airways Reviewed lines, drains, AND airways. Need to be continued . Diagnostic tests reviewed: Most recent labs and imaging results Previous Version Asmita Zhao MD 07/22/2018 10:21 PM Written History: No hx of jaundice or any other abdominal complaints in past +ve hx of colon polyp No hx of cancer +ve hx of colon cancer in mother Assessment: Based upon outside Ct abd/pel report: pancreatic mass obstructing the duct. --> could be benign vs malignant Patient denies abdominal pain Does have pale stool and dark urine No signs of cholangitis, sepsis Plan: - NPO and clear liquids after midnight [place] possible ERCP for biopsy, day team to have final decision with the help of GI specialist - LFT's, ALP, GGT - upload CT into system - will hold off on Abx as patient does not have signs of infection Asmita Zhao MD 07/22/2018 10:21 PM Written PLAN: Continue home statin Asmita Zhao MD 07/22/2018 10:22 PM Written PLAN: Continue finasteride Asmita Zhao MD 07/22/2018 10:22 PM Written Hx of colon cancer in mother Asmita Zhao MD 07/22/2018 10:26 PM Signed SERVICE DATE: 07/22/2018 SERVICE TIME: 10:25 PM HOSPITAL MEDICINE HISTORY AND PHYSICAL PCP: Royce Springer MD NIGHT AND WEEKEND COVERAGE: Days: [phone], please page DAY TEAM for patient issues. Nights: [phone], please page [phone] for tonight, otherwise Night coverageTeam SUBJECTIVE Chief Complaint: Jaundice HPI: 67 YOM with hx of septic myocarditis c/b STEMI in 2009, HLD, BPH, is here with obstructive jaundice x 2 days - Had pale BM's, dark urine, - Ct scan - at [facility] today showed pancreatic mass. - No weight loss - No loss of appeitite or energy - H/o benign Brain tumor in dad and mother had malignant colon cancer - CBC, CMP (Tbil 1.4) was unremarkable in Jun 2018 during physical REVIEW OF SYSTEMS: (Only positives in BOLD and the rest is negative) General: Low fevers, chills, rigors, malaise, Neuro: Headache, confusion, syncope, paralysis, seizures or tremors, HEENT: Hearing or vision changes, nose bleeds or other nasal problems, goiter, neck pain/ swelling, +icterus Resp: Dry cough, wheezing, dyspnea, orthopnea, pnd Cardiac: Chest pain, palpitations, leg swelling, weight gain/loss, GI: Nausea, vomiting, abdominal pain, heart burn, constipation, diarrhea and pale stool, blood in stools or black stools, frequency or incontinence of stool : Dysuria, odynouria, frequency or incontinence of urine, discoloration of urine Musculoskeltal: Joint pain or swelling, back pain or muscle pain Skin: Skin lesions, rash, and itching, Jaundice skin Heme: Prolonged bleeding, bruising easily or swollen nodes, Endo: Cold or heat intolerance, polyuria, polydipsia, Travel, trauma SIGECAPS See HPI: Remaining ROS reviewed and negative. PAST MEDICAL HISTORY Diagnosis Date - ACL tear Right knee, chronic - BPH with obstruction/lower urinary tract symptoms 08/17/2006 - ELEVATED PROSTATE SPECIFIC ANTIGEN 08/17/2006 - ERECTILE DYSFUNCTION 08/13/2005 - Family history of malignant neoplasm of gastrointestinal tract - Hypertrophy of prostate with urinary obstruction and other lower urinary tract symptoms (LUTS) 08/17/2006 - Other and unspecified hyperlipidemia - Septic shock(785.52) 2009 E. coli - STEMI (ST elevation myocardial infarction) (HCC) 12/30/2009 Septic myocarditis PAST SURGICAL HISTORY Procedure Laterality Date - COLONOS W/REM POLYP SNARE 08/10/16 small adenomatous polyp - 5 year follow up - COLONOSCOP W/ OR W/O [facility] SPEC 11/09/2002 Colonoscopy - COLONOSCOP W/ OR W/O [facility] SPEC 05/24/2008 Normal Colonoscopy - LEFT HEART CATH,PERCUTANEOUS 12/30/2009 Cardiac cath, L heart - PAST SURGICAL HISTORY OF 1984 vasectomy - PAST SURGICAL HISTORY OF 05/23/1998 right knee arthroscopy FAMILY HISTORY Problem Relation Age of Onset - Colon Cancer Mother dec. age 72, - Cancer Father Brain,dec. age 71 - Diabetes Father - None Sister - Cancer Maternal Grandfather - Clotting Disorder Sister DVT Social History Substance Use Topics - Smoking status: Former Smoker Years: 4.00 Types: Cigarettes Quit date: 10/10/1974 - Smokeless tobacco: Never Used Comment: Quit 1974 1-2 cig. daily - Alcohol use Yes Comment: rare beer, rare wine Medications: Reviewed Allergies: ALLERGIES No Known Allergies OBJECTIVE: PHYSICAL EXAMINATION: BP 141/86 Pulse 63 Temp 36.3 ?C (97.4 ?F) (Oral) Resp 18 Ht 180.3 cm (5' 11) Wt 86.7 kg (191 lb 2.2 oz) SpO2 95% BMI 26.66 kg/m? General appearance: AANDO x 3, no acute distress, cooperative. Skin: No rash, turgor normal , icteric skin HEENT: EOMI, PEERLA, no icterus, normal hearing Neck: No JVD, supple without lymphadenopathy Lungs: CTA b/l, no wheezes, rales, rhonchi. No tenderness to palpation. Heart: + S1 S2, RRR, no murmur, gallop or rub Abdomen: Soft, NT, ND, + BS in 4Q, Extremities: NO Edema. No cyanosis, clubbing. Movement grossly normal Neurological: No gross focal neurologic deficits. Lines, Drains, and Airways No matching active lines, drains, or airways Reviewed lines, drains, AND airways. Need to be continued . Diagnostic tests reviewed: Most recent labs and imaging results ASSESSMENT AND PLAN Assessment AND Plan, all Hosp Problems Active Hospital Problems as of 07/22/2018 Noted - Resolved Hospital Obstructive jaundice 07/22/2018 - Present Current Assessment AND Plan History: No hx of jaundice or any other abdominal complaints in past +ve hx of colon polyp No hx of cancer +ve hx of colon cancer in mother Assessment: Based upon outside Ct abd/pel report: pancreatic mass obstructing the duct. --> could be benign vs malignant Patient denies abdominal pain Does have pale stool and dark urine No signs of cholangitis, sepsis Plan: - NPO and clear liquids after midnight [place] possible ERCP for biopsy, day team to have final decision with the help of GI specialist - LFT's, ALP, GGT - upload CT into system - will hold off on Abx as patient does not have signs of infection Pure hypercholesterolemia 08/13/2005 - Present Current Assessment AND Plan PLAN: Continue home statin FAMILY HX COLON CANCER 04/23/2008 - Present Current Assessment AND Plan Hx of colon cancer in mother BPH with obstruction/lower urinary tract symptoms 08/17/2006 - Present Current Assessment AND Plan PLAN: Continue finasteride Medication and Non-Pharmacologic VTE Prophylaxis/Anticoagulants Anticoagulant AND Antiplatelet Medications Start Dose Route Frequency Ordered Stop 07/22/182199 enoxaparin 40 mg injection (LOVENOX) (Surgical Moderate Risk ) 40 mg SUBCUTANEOUS DAILY 07/22/182150 -- 07/22/182199 vte non-pharmacologic prophylaxis - none indicated (fl,oh) VTE Prophylaxis: VTE prophylaxis appropriate Plan of care discussed with: Patient SIGNATURE: Asmita Zhao MD PATIENT NAME: Guerrero Wilson DATE: July 22, 2018 TIME: 10:25 PM PAGER/CONTACT #: [phone] Belem Abraham RN, RN 07/23/2018 12:03 AM Addendum Nursing Progress Note Patient Name: Guerrero Wilson Patient Location: [place] [address]/H081- Transfer Note: Patient transferred into room/unit H081- in stable condition. Actions taken: Alert, awake, oriented to time and place. Oriented to room and call light. No futher actions taken at this time. Will continue to monitor and check with patient. This note was completed by: Belem Abraham RN Previous Version Carmela Garza MD, PhD 07/23/2018 12:50 PM Addendum INITIAL CONSULT GASTROENTEROLOGY SERVICE DATE: 07/23/2018 SERVICE TIME: 8:57 AM Consulting Service: GIM Opinion/advice regarding: Obstructive jaundice Subjective HPI: This is a 67 year old male with PMH significant for CAD, HLP, BPH who is admitted with obstructive jaundice and GI consulted for the same. The patient has been complaining of dark urine and light colored stools since 3 days. Yesterday the noted yellowness of the skin. He went to local ER where he was noted to have elevated T bili and CT was done showing mild dilation of CBD and intrahepatic bile ducts, normal spleen and mild prominence of uncinate process of pancreas. With that information, he was transferred to [facility] where labs showed T bili 9.2,alk phos 256, AST 159 and ALT 258. Looking back at his labs, he did have T bili elevation to ~4-5 in 2009 when he was admitted for STEMI. He quit smoking many years ago, denies significant alcohol intake. Denies any weight loss. Component Latest Ref Rng AND Units 01/19/2010 08/07/2010 09/21/2011 02/09/2013 01/28/2014 11/23/2017 06/28/2018 07/23/2018 Protein, Total 6.3 - 8.0 g/dL 7.2 7.2 7.2 6.9 6.9 7.5 6.7 6.8 Albumin 3.9 - 4.9 g/dL 3.9 4.5 4.2 4.3 4.1 3.8 (L) 4.1 3.8 (L) Calcium 8.5 - 10.2 mg/dL 9.8 10.0 9.7 9.6 9.5 9.5 9.3 9.2 Bilirubin, Total 0.2 - 1.3 mg/dL 1.4 2.1 (H) 1.6 (H) 2.3 (H) 1.3 2.5 (H) 1.4 (H) 9.2 (H) Alkaline Phosphatase 38 - 113 U/L 126 94 89 71 76 198 (H) 64 256 (H) AST 14 - 40 U/L 28 25 27 25 26 46 (H) 20 159 (H) Glucose 74 - 99 mg/dL 94 83 87 89 82 94 92 90 BUN 9 - 24 mg/dL 19 15 16 17 15 15 18 13 Creatinine 0.73 - 1.22 mg/dL 1.01 0.98 0.84 0.86 0.74 0.90 0.79 0.78 Sodium 136 - 144 mmol/L 138 140 138 138 140 136 140 139 Potassium 3.7 - 5.1 mmol/L 4.2 4.3 4.2 4.4 3.9 3.6 (L) 3.8 4.1 Chloride 97 - 105 mmol/L 101 104 102 103 104 96 (L) 106 (H) 104 CO2 22 - 30 mmol/L 25 28 27 23 22 (L) 25 23 20 (L) Anion Gap 9 - 18 mmol/L 12 8 9 12 14 15 11 15 ALT 10 - 54 U/L 41 27 37 16 23 91 (H) 15 258 (H) PAST MEDICAL HISTORY Diagnosis Date - ACL tear Right knee, chronic - BPH with obstruction/lower urinary tract symptoms 08/17/2006 - ELEVATED PROSTATE SPECIFIC ANTIGEN 08/17/2006 - ERECTILE DYSFUNCTION 08/13/2005 - Family history of malignant neoplasm of gastrointestinal tract - Hypertrophy of prostate with urinary obstruction and other lower urinary tract symptoms (LUTS) 08/17/2006 - Other and unspecified hyperlipidemia - Septic shock(785.52) 2009 E. coli - STEMI (ST elevation myocardial infarction) (HCC) 12/30/2009 Septic myocarditis PAST SURGICAL HISTORY Procedure Laterality Date - COLONOS W/REM POLYP SNARE 08/10/16 small adenomatous polyp - 5 year follow up - COLONOSCOP W/ OR W/O [facility] SPEC 11/09/2002 Colonoscopy - COLONOSCOP W/ OR W/O [facility] SPEC 05/24/2008 Normal Colonoscopy - LEFT HEART CATH,PERCUTANEOUS 12/30/2009 Cardiac cath, L heart - PAST SURGICAL HISTORY OF 1984 vasectomy - PAST SURGICAL HISTORY OF 05/23/1998 right knee arthroscopy FAMILY HISTORY Problem Relation Age of Onset - Colon Cancer Mother dec. age 72, - Cancer Father Brain,dec. age 71 - Diabetes Father - None Sister - Cancer Maternal Grandfather - Clotting Disorder Sister DVT Social History Substance Use Topics - Smoking status: Former Smoker Years: 4.00 Types: Cigarettes Quit date: 10/10/1974 - Smokeless tobacco: Never Used Comment: Quit 1974 1-2 cig. daily - Alcohol use Yes Comment: rare beer, rare wine MEDICATIONS: Prior to Admission Medications: finasteride (PROSCAR) 5 mg tablet Take 1 tablet by mouth once daily. sildenafil, antihypertensive, (REVATIO) 20 mg tablet Take 1 tablet by mouth as directed. 1-5 tablets taken on empty stomach and with sexual stimulation following. acyclovir (ZOVIRAX) 800 mg tablet Take 1 tablet by mouth four times daily. MULTIVITAMIN TAB Take one(1) tablet daily. Current hospital medications: dextrose 5% in NaCl 0.45% iv infusion 75 mL/hr INTRAVENOUS CONTINUOUS piperacillin-tazobactam 3.375 g in dextrose (iso-osmotic) 50 mL (ZOSYN) 3.375 g INTRAVENOUS q 6 H finasteride 5 mg tab(s) (PROSCAR) 5 mg ORAL DAILY enoxaparin 40 mg injection (LOVENOX) 40 mg SUBCUTANEOUS DAILY ALLERGIES No Known Allergies GI SPECIFIC REVIEW OF SYSTEMS: Negative for nausea, vomitting Negative for decreased appetite Negative for change in weight No alteration in bowel habits OTHER ROS: Negative for fever, night sweats, sleep problems, mood or depression. Objective PHYSICAL EXAM: BP 128/76 Pulse 62 Temp 36.8 ?C (98.2 ?F) (Oral) Resp 18 Ht 180.3 cm (5' 11) Wt 84.7 kg (186 lb 11.7 oz) SpO2 97% BMI 26.04 kg/m? GENERAL- AAO x 3, no distress HEENT: Moist mucus membranes, no carotid bruit LUNGS: Clear to auscultation bilaterally CARDIAC: S1, S2 heard, no murmur appreciated ABDOMEN: Soft, non-tender without guarding or rigidity, normal bowel sounds EXTREMITIES: No pedal edema DATA: Diagnostic Tests Reviewed for Today's Visit: Most recent labs and imaging results. Most recent labs Impression/Recommendations 67 year old male with PMH significant for CAD, HLP, BPH who is admitted with obstructive jaundice and GI consulted for the same. Based on reported OSH imaging, he has some prominence of pancreatic uncinate process and some ductal dilation which does raise the concern for pancreatic malignancy causing biliary obstruction too. To further confirm the etiology, he will need EUS with FNA depending on EUS findings and ERCP to assess for biliary obstruction and stent placement if needed. -Please place order for EGD/EUS with anesthesia and also ERCP with anesthesia. The procedure timing cant unfortunately be confirmed till tomorrow but just in anticipation we can do procedure tomorrow, will recommend keeping him NPO after midnight - Can give him a diet today - Also check IgG4 levels to determine if he could have autoimmune pancreatitis SIGNATURE: Stephanie Zhao MD PATIENT NAME: Guerrero Wilson DATE: July 23, 2018 TIME: 8:56 AM PAGER/CONTACT #: [phone] TEACHING PHYSICIAN NOTE OF PERSONAL INVOLVEMENT IN CARE I performed a history and physical examination of the patient and discussed management with the resident team. I reviewed the resident's notes and agree with documented findings and plan of care with my addendum and correction as noted below. 67 yo with jaundice, notes some epigastric discomfort. Notes he had Episode of feeling faint in prior [place] with dark urine, elevated bilirubin and had us that showed stones, his lfts went back to normal. NO pruritis On exam nad Pos bs soft nt jaundiced A/p obstructive jaundice Would like to review the ct scan: I am told primary team has it to be uploaded and reread by radiology Plan for eus/ercp tomorrow Carmela Garza MD PhD July 23, 2018 12:47 PM Previous Version Julian Jung MD 07/23/2018 2:52 PM Signed UROLOGY SERVICE CONSULT NOTE PATIENT NAME: Guerrero Wilson ASSESSMENT AND PLAN 67 year old male with PMH significant for BPH who is admitted with obstructive jaundice with a pancreatic lesion found on CT scan. Urology consulted for question regarding evaluation of enlarged prostate seen on CT. - CT reviewed, appears to be normal enlarged prostate, consistent with exam RECOMMENDATIONS: - Follow up PRN with Keila Salinas as outpatient for continued management of BPH - continue home finasteride - please page urology [phone] with any further urologic issues or questions. Discussed with chief resident, Dr. Ibarra. Will be staffed within 24 hours Julian Jung MD Resident Urology Pager [phone] After hours global transportation manager urology pager [phone] HPI Guerrero Wilson is a 67 year old male with PMH significant for BPH who is admitted with obstructive jaundice with a pancreatic lesion found on CT scan. Follows with Keila Perezoney for BPH on finasteride with no recent changes in urination. 3 previous prostate biopsies (most recent 03/2016) negative for malignancy. Most recent PSA 2.43 (11/2017). CT read from OSH: normal urinary bladder. There is a large mass indenting the base of the bladder measuring about 4.7cm likely representing enlarged prostate indenting the base of the bladder. Bladder mass or other cannot be entirely excluded. One episode of microscopic hematuria following syncope (thought to be vasovagal) in 11/2017, resolved on repeat UA. Did not undergo further hematuria workup at that time. Has not had a cystoscopy. Distant hx of smoking (>40 years ago). No personal or family hx of malignancy. Urological review of systems reveals the patient Endorses hx of weak stream, incomplete emptying 2/2 BPH, improved on finasteride. No recent changes in urination. Denies history of recurrent UTIs. Denies history of hematuria except as noted in HPI, dysuria, nephrolithiasis, incontinence, malignancy or instrumentation. PAST MEDICAL HISTORY Diagnosis Date - ACL tear Right knee, chronic - BPH with obstruction/lower urinary tract symptoms 08/17/2006 - ELEVATED PROSTATE SPECIFIC ANTIGEN 08/17/2006 - ERECTILE DYSFUNCTION 08/13/2005 - Family history of malignant neoplasm of gastrointestinal tract - Hypertrophy of prostate with urinary obstruction and other lower urinary tract symptoms (LUTS) 08/17/2006 - Other and unspecified hyperlipidemia - Septic shock(785.52) 2009 E. coli - STEMI (ST elevation myocardial infarction) (HCC) 12/30/2009 Septic myocarditis PAST SURGICAL HISTORY Procedure Laterality Date - COLONOS W/REM POLYP SNARE 08/10/16 small adenomatous polyp - 5 year follow up - COLONOSCOP W/ OR W/O [facility] SPEC 11/09/2002 Colonoscopy - COLONOSCOP W/ OR W/O [facility] SPEC 05/24/2008 Normal Colonoscopy - LEFT HEART CATH,PERCUTANEOUS 12/30/2009 Cardiac cath, L heart - PAST SURGICAL HISTORY OF 1984 vasectomy - PAST SURGICAL HISTORY OF 05/23/1998 right knee arthroscopy FAMILY HISTORY Problem Relation Age of Onset - Colon Cancer Mother dec. age 72, - Cancer Father Brain,dec. age 71 - Diabetes Father - None Sister - Cancer Maternal Grandfather - Clotting Disorder Sister DVT Social History Substance Use Topics - Smoking status: Former Smoker Years: 4.00 Types: Cigarettes Quit date: 10/10/1974 - Smokeless tobacco: Never Used Comment: Quit 1974 1-2 cig. daily - Alcohol use Yes Comment: rare beer, rare wine MEDICATIONS: Prior to Admission Medications: finasteride (PROSCAR) 5 mg tablet Take 1 tablet by mouth once daily. sildenafil, antihypertensive, (REVATIO) 20 mg tablet Take 1 tablet by mouth as directed. 1-5 tablets taken on empty stomach and with sexual stimulation following. acyclovir (ZOVIRAX) 800 mg tablet Take 1 tablet by mouth four times daily. MULTIVITAMIN TAB Take one(1) tablet daily. Current hospital medications: dextrose 5% in NaCl 0.45% iv infusion 75 mL/hr INTRAVENOUS CONTINUOUS piperacillin-tazobactam 3.375 g in dextrose (iso-osmotic) 50 mL (ZOSYN) 3.375 g INTRAVENOUS q 6 H finasteride 5 mg tab(s) (PROSCAR) 5 mg ORAL DAILY enoxaparin 40 mg injection (LOVENOX) 40 mg SUBCUTANEOUS DAILY ALLERGIES: Patient has no known allergies. COMPLETE REVIEW OF SYSTEMS: GEN: (-)Fevers, weight loss HEENT: (-)congestion CV: no chest pain PULM: No cough or difficulty breathing GI: (-)diarrhea or constipation : See HPI MSK: (-)joint pain HEME: no famhx of abnormal bleeding or bruising ENDO: -DM SKIN: (-)new rashes ID: (-)recent illness PHYSICAL EXAM: BP 128/76 Pulse 62 Temp 36.8 ?C (98.2 ?F) (Oral) Resp 18 Ht 180.3 cm (5' 11) Wt 84.7 kg (186 lb 11.7 oz) SpO2 97% BMI 26.04 kg/m? Gen: No apparent distress, well-nourished Pulmonary: Clear to auscultation bilaterally, symmetric and equal chest rise, unlabored breathing on room air. Cardiac: Regular rate and rhythm Abdomen: Soft, non-distended, non-tender in all quadrants. : MALE EXAM: No scrotal lesions, cysts, rashes. Epididymis AND testes: normal size, position, without masses Urethra AND meatus: normal size AND position w/o lesion or discharge Penis: w/o plaques, lesions, masses, or deformities. Rectal Exam: Prostate: enlarged, symmetrical, nontender, w/o nodules. Sphincter tone normal, no mass. Extremities: no lower extremity edema IMAGING: CT A/P: consistent with normal enlarged prostate tissue. Julian Jung MD Resident Urology Pager [phone] After hours global transportation manager urology pager [phone] Previous Version Stacie Badillo APRN.H[employer]ER 07/23/2018 12:06 PM Written HOSPITAL MEDICINE PROGRESS NOTE NIGHT AND WEEKEND COVERAGE: Days: [phone], please page me for patient issues. Nights: [phone], please page Team GI 4 - 8th floor: [phone] Weekends: [place] [id number] HPI SUBJECTIVE Interval Events: Patient resting in bed; NAD; jaundice. OSH records reviewed; OSH CT uploaded to [facility]; awaiting [facility] radiology 2nd read. NPO after midnite in prep for possible ERCP and EGD/EUS Tuesday. OBJECTIVE BP 128/76 Pulse 62 Temp (Src) 98.2 (Oral) Resp 18 Ht 5' 11 (1.80m) Wt 186 lb 11.7 oz (84.7kg) SpO2 97% BMI 26.06 kg/(m2). Physical Exam Performed: GENERAL: GENERAL APPEARANCE NCCC: well appearing, alert and in no acute distress HEART: HEART CCF: regular rate and rhythm, no murmer, gallop or rub, normal, S1, S2, no lifts, heaves, or thrills, PMI not displaced LUNGS: LUNGS CCF: clear to percussion and auscultation and no rales ABDOMEN: ABDOMEN: Soft, nontender, bowel sounds normal, no palpable organomegaly, no bruits. EXTREMITY: EXTREMITY EXAM: Normal exam of the extremities. No clubbing, cyanosis, or edema. SKIN: jaundice Lines, Drains, and Airways Line Peripheral 07/23/18 0010 Admission to Hospital Short Right Wrist 20 Gauge less than 1 day Reviewed lines, drains, AND airways. Need to be continued peripheral IV Medications: Reviewed Diagnostic tests reviewed: Most recent imaging Most recent labs Stacie Badillo APRN.CNP 07/23/2018 12:19 PM Edited Assessment: Acute Tbili 9.2 on admission; +jaundice and icterus on exam; denies abd pain; good appetite; no weight loss Of note; presented to OSH with dark urine, light colored stools and abd pain x3 days OSH CT a/p showed concern for possible pancreatic mass and possible prostate mass (CT uploaded to [facility] 07/23) Plan: STARTED on Prophylactic Zosyn and IVF GI consulted; appreciate recs--> -Please place order for EGD/EUS with anesthesia and also ERCP with anesthesia. The procedure timing cant unfortunately be confirmed till tomorrow but just in anticipation we can do procedure tomorrow, will recommend keeping him NPO after midnight - Can give him a diet today - Also check IgG4 levels to determine if he could have autoimmune pancreatitis Previous Version Stacie Badillo APRN.GORDO 07/23/2018 12:17 PM Edited Assessment: Acute Hx of BPH; follows with Keila Bill 12/2017 Prostate BIOPSY: 03/12/2016 FINAL DIAGNOSIS--> BENIGN OSH CT a/p showed concern re: prostate mass indenting bladder approx 4 cm Plan: -continue home Proscar 5mg Daily Urology consulted; awaiting recs PSA PENDING Bladder scan PENDING Previous Version Stacie Badillo APRN.CNP 07/23/2018 4:13 PM Addendum SERVICE DATE: 07/23/2018 SERVICE TIME: 12:19 PM HOSPITAL MEDICINE PROGRESS NOTE NIGHT AND WEEKEND COVERAGE: Days: [phone], please page me for patient issues. Nights: [phone], please page Team GIM 4 - 8th floor: [phone] [place] [id number] HPI PLEASE NOTE THAT MARGARET PALENCIA CNP IS TAKING OVER CARE OF THIS PATIENT OF 07/24/18 AT 0730; PLEASE PAGE HER WITH ANY QUESTIONS. THANKS! SUBJECTIVE Interval Events: Patient resting in bed; NAD; jaundice. OSH records reviewed; OSH CT uploaded to [facility]; awaiting [facility] radiology 2nd read. NPO after midnite in prep for possible ERCP and EGD/EUS Tuesday. OBJECTIVE BP 128/76 Pulse 62 Temp (Src) 98.2 (Oral) Resp 18 Ht 5' 11 (1.80m) Wt 186 lb 11.7 oz (84.7kg) SpO2 97% BMI 26.06 kg/(m2). Physical Exam Performed: GENERAL: GENERAL APPEARANCE NCCC: well appearing, alert and in no acute distress HEART: HEART CCF: regular rate and rhythm, no murmer, gallop or rub, normal, S1, S2, no lifts, heaves, or thrills, PMI not displaced LUNGS: LUNGS CCF: clear to percussion and auscultation and no rales ABDOMEN: ABDOMEN: Soft, nontender, bowel sounds normal, no palpable organomegaly, no bruits. EXTREMITY: EXTREMITY EXAM: Normal exam of the extremities. No clubbing, cyanosis, or edema. SKIN: jaundice Lines, Drains, and Airways Line Peripheral 07/23/18 0010 Admission to Hospital Short Right Wrist 20 Gauge less than 1 day Reviewed lines, drains, AND airways. Need to be continued peripheral IV Medications: Reviewed Diagnostic tests reviewed: Most recent imaging Most recent labs CARE COORDINATION: 67 year old male with PMH significant for CAD, HLP, BPH who is admitted with obstructive jaundice and GI consulted for the same. ? The patient has been complaining of dark urine and light colored stools since 3 days. Yesterday the noted yellowness of the skin. He went to local ER where he was noted to have elevated T bili and CT was done showing mild dilation of CBD and intrahepatic bile ducts, normal spleen and mild prominence of uncinate process of pancreas. ? With that information, he was transferred to [facility] where labs showed T bili 9.2,alk phos 256, AST 159 and ALT 258. Looking back at his labs, he did have T bili elevation to ~4-5 in 2009 when he was admitted for STEMI. ? He quit smoking many years ago, denies significant alcohol intake. Denies any weight loss. ASSESSMENT AND PLAN Assessment AND Plan, all Hosp Problems Active Hospital Problems as of 07/23/2018 Noted - Resolved Hospital * (Principal)Obstructive jaundice 07/22/2018 - Present Current Assessment AND Plan Assessment: Acute Tbili 9.2 on admission; +jaundice and icterus on exam; denies abd pain; good appetite; no weight loss Of note; presented to OSH with dark urine, light colored stools and abd pain x3 days OSH CT a/p showed concern for possible pancreatic mass and possible prostate mass (CT uploaded to [facility] 07/23) Plan: STARTED on Prophylactic Zosyn and IVF GI consulted; appreciate recs--> -Please place order for EGD/EUS with anesthesia and also ERCP with anesthesia. The procedure timing cant unfortunately be confirmed till tomorrow but just in anticipation we can do procedure tomorrow, will recommend keeping him NPO after midnight - Can give him a diet today - Also check IgG4 levels to determine if he could have autoimmune pancreatitis Prostate mass 07/23/2018 - Present Current Assessment AND Plan Assessment: Acute Hx of BPH; follows with Keila Bill 12/2017 Prostate BIOPSY: 03/12/2016 FINAL DIAGNOSIS--> BENIGN OSH CT a/p showed concern re: prostate mass indenting bladder approx 4 cm Plan: -continue home Proscar 5mg Daily Urology consulted; awaiting recs PSA PENDING Bladder scan PENDING Medication and Non-Pharmacologic VTE Prophylaxis/Anticoagulants Anticoagulant AND Antiplatelet Medications Start Dose Route Frequency Ordered Stop 07/22/182199 enoxaparin 40 mg injection (LOVENOX) (Surgical Moderate Risk ) 40 mg SUBCUTANEOUS DAILY 07/22/182150 -- 07/22/182199 vte non-pharmacologic prophylaxis - none indicated (nj,oh) VTE Prophylaxis: VTE prophylaxis appropriate Plan of care discussed with: Attending and Patient SIGNATURE: Stacie Badillo APRN.CNP PATIENT NAME: Guerrero Wilson DATE: July 23, 2018 TIME: 12:19 PM PAGER/CONTACT #: [id number] Previous Version Patty Ochoa, RN, RN 07/23/2018 5:33 PM Signed Nursing Progress Note Topic of Note: Daily Note Guerrero Wilson [id number] AANDOx3, VSS, denies pain. D51/2NS running @75mL/hr via peripheral line and other sched meds as ordered--(SEE eMAR). Reg diet as ordered (excellent po intake); AND pt to be NPO tonight at 0000 for EGD/ERCP, Tuesday. Stable gait (ambulates freq), non-skid socks on, safety prec in place. Good po intake. Skin care protocol in place (independent with turning). Pt AND updated by primary team today. Bed locked/in lowest position, call light within reach. Will continue to monitor. This note was completed by: LAZARO Sofia MD 07/24/2018 8:31 AM Incomplete GASTROENTEROLOGY CONSULT NOTE Guerrero Harden Wilson [id number] Department of Gastroenterology AND Hepatology Date of Service: 07/24/18 Reason for Admission / Consultation: Obstructive Jaundice Gastroenterology Attending: Dr. Garza ? ? Impression: 67 year old male with PMH significant for CAD (septic myocarditis c/b STEMI in 2009), HLP, BPH who is admitted with obstructive jaundice. ? Based on reported OSH imaging, he has some prominence of pancreatic uncinate process and some ductal dilation which does raise the concern for pancreatic malignancy causing biliary obstruction too. To further confirm the etiology, he will need EUS with FNA depending on EUS findings and ERCP to assess for biliary obstruction and stent placement if needed. ? ? Recommendations: - EGD EUS/ERCP- scheduling to be facilitated by GI team - Keep patient NPO, will attempt to add patient to schedule today - Follow up on IgG4 levels Gastroenterology consult service will continue to follow along. INTERVAL HISTORY: Events overnight: Subjective: PHYSICAL EXAM: BP 124/77 Pulse 71 Temp 36.4 ?C (97.6 ?F) (Oral) Resp 18 Ht 180.3 cm (5' 11) Wt 84.9 kg (187 lb 2.7 oz) SpO2 96% BMI 26.11 kg/m? General: In no acute distress. Lungs: Clear Heart: S1nl, S2nl. murmur Abdomen: Soft, non-tender Extremities: No peripheral edema bilaterally Neuro: Oriented x3, alert, cooperative Intake/Output Summary (Last 24 hours) at 07/24/18 0826 Last data filed at 07/24/18 0600 Gross per 24 hour Intake 2090 ml Output 0 ml Net 2090 ml MEDICATIONS: Current hospital medications: piperacillin-tazobactam 3.375 g in dextrose (iso-osmotic) 50 mL (ZOSYN) 3.375 g INTRAVENOUS q 6 H dextrose 5% in NaCl 0.45% iv infusion 75 mL/hr INTRAVENOUS CONTINUOUS finasteride 5 mg tab(s) (PROSCAR) 5 mg ORAL DAILY enoxaparin 40 mg injection (LOVENOX) 40 mg SUBCUTANEOUS DAILY LABORATOY: CBC, Coags, BMP, Mg, Phos Recent Labs 07/24/18 0651 07/23/18 0049 WBC 5.83 7.10 HB 16.3 16.4 HCT 46.5 45.5 PLT 223 215 INR -- 1.0 APTT -- 24.8 NA -- 139 K -- 4.1 CHLOR -- 104 CO2 -- 20* BUN -- 13 CREAT -- 0.78 GLUC -- 90 CA -- 9.2 MG -- 2.1 P -- 4.0 Liver Function, Amylase, AND Lipase Recent Labs 07/23/1848 TPROT 6.8 ALB 3.8* ALT 258* AST 159* ALKPHOS 256* TBILI 9.2* ASSESSMENT AND PLAN: Active Hospital Problems Diagnosis - Obstructive jaundice - Prostate mass SIGNATURE: Mariel Wells MD PGY4 Gastroenterology and Hepatology Fellow Pager: [phone] July 24, 2018 8:26 AM EMIL EDMOND 07/24/2018 9:23 AM Incomplete CARE MANAGEMENT: ASSESSMENT AND DISCHARGE PLAN SERVICE DATE: 07/24/2018 SERVICE TIME: PRIMARY CARE PHYSICIAN: Royce Springer MD ADMISSION STATUS: Inpatient MEDICAL: Patient/Termite Treater Stated Goals: {CM PT GOALS:771230} Health Insurance: MEDICARE A AND B { :34232} Health Issues Impacting Discharge Plan: 67 YOM with hx of septic myocarditis c/b STEMI in 2010, HLD, BPH, is here with obstructive jaundice x 2 days Last Admission Date: Previous admit date: 12/30/2009 Is this Within the Past 30 days? {Readmit:333042::No} Advance Directive: Health Literacy: 1. How often do you need to have someone help you when you read instructions, pamphlets, or other written material from your doctor or pharmacy? {CM answers:296734} 2. How confident are you filling out medical forms by yourself? {CM confident:198984} If Patient scores > 3 on either question, the following interventions were put into place: {health scores CM:204979} FUNCTIONAL AND COGNITIVE/BEHAVIORAL PRIOR TO ADMISSION: Baseline Mental Status: { :174493::Alert AND Oriented,Person,Place ,Time,Situation} Functional Status: { :48179} Does Patient Currently Receive Any Community Services or Home Care? {CM support:370596::None} Equipment Prior to Admission: {LIST:74403} Has the Patient Been in a [place] [facility] Facility in the Past 30 days? {30 DAYS:049343} SOCIAL: Living Arrangement: {LIVING ARRANGEMENT:12830::Home} Lives With: {lives:948263} Financial Resources: {occupation:299347} Primary Contact: Extended Emergency Contact Information Primary Emergency Contact: Poonam Wilson Relation: Spouse Supportive: {YES/NO:532121::Yes} Other Important Patient Contacts: {Resources:62832} Caregiver Assessment: Caregiver is ready, willing and able to meet the patient's needs as recommended by the inter-professional team? {caregiver:680921} Patient's transition needs and plan for meeting these needs: Does the patient have an acute stroke diagnosis, or has the patient had a stroke during this admission? {YES/NO:680207::Yes} Medication Adherence: I am convinced of the importance of my prescription medication: {CM convinced:871536} I worry that my prescription medication will do more harm than good to me {CM med harm:3707766} I feel financially burdened by my [id number] expenses for my prescription medication: {CM burden meds:948623} Patient is categorized as {CM risk meds:384810} Are you interested in bedside delivery of your medications? {CM delivery yes/no:221484} Food Concerns: In the Last Month, Have You had Trouble Getting Food? {food:514219::No trouble getting food} During the Last Month, Have You Worried Whether Your Food Would Run Out Before You Had Enough Money to Buy More? {foodlist:226776::No} Is the Patient Psychosocially Complex? {CM yes:840618::No} ASSESSMENT AND PLAN: Medical Needs: {Medical Needs:851625} Psychosocial Needs: {psychosocial:554892::None} {REQUIRED ONLY FOR OB PATIENTS. SELECT BLANK IF N/A :698588:: } FREEDOM OF CHOICE EXPLAINED: { :974962} POTENTIAL TRANSITION PLANS {DC PLANS:74430::No Services Indicated} SIGNATURE: MARTIN EDMOND-I PATIENT NAME: Guerrero Wilson DATE: July 24, 2018 TIME: 9:21 AM PAGER/CONTACT #: Margaret Palencia APRN.CNP 07/24/2018 9:44 AM Written Assessment: Acute Tbili 9.2 on admission; +jaundice and icterus on exam; denies abd pain; good appetite; no weight loss Of note; presented to OSH with dark urine, light colored stools and abd pain x3 days OSH CT a/p showed concern for possible pancreatic mass and possible prostate mass (CT uploaded to [facility] 07/23) Plan: - Continue Prophylactic Zosyn and IVF - GI consulted; appreciate recs - Patient going for EGD/EUS with anesthesia and also ERCP with anesthesia today. NPO for this - IgG4 levels in process to determine if he could have autoimmune pancreatitis Margaret Palencia APRN.CNP 07/24/2018 9:47 AM Written Assessment: Acute Hx of BPH; follows with Keila Bill 12/2017 Prostate BIOPSY: 03/12/2016. FINAL DIAGNOSIS--> BENIGN OSH CT a/p showed concern re: prostate mass indenting bladder approx 4 cm Plan: - Urology was consulted and reviewed CT scan which appears to be normal enlarged prostate which is consistent with exam - Continue home finasteride 5 mg QD - PSA in process - Follow up PRN with Keila Salinas as outpatient for continued management of BPH Margaret Palencia APRN.GORDO 07/24/2018 10:07 AM Written HOSPITAL MEDICINE PROGRESS NOTE NIGHT AND WEEKEND COVERAGE: Days: [phone], please page me for patient issues. Nights: [phone], please page Team GIM 4 - 8th floor: [phone] Interval HPI Interval Events: MASSIEL overnight T Bili 5.1 this AM from 9.2. LFTs around the same as yesterday. Patient going for EUS/ERCP today with GI. NPO for procedure. Denies chest pain, SOB, N/V/D/C, abdominal pain, fever or chills. Bladder scan x 1 wnl, will discontinue. Patient denies urinary symptoms or difficulty urinating. Urology reviewed CT and confirmed normal enlarged prostate, recommended continuing home finasteride and outpatient follow up as needed. OBJECTIVE BP 124/77 Pulse 71 Temp (Src) 97.6 (Oral) Resp 18 Ht 5' 11 (1.80m) Wt 187 lb 2.7 oz (84.9kg) SpO2 96% BMI 26.12 kg/(m2). Physical Exam Performed: GENERAL: Alert, no distress, cooperative SKIN: Skin texture, turgor normal. No rashes or lesions. Jaundiced LUNGS: Lungs clear to auscultation, Good diaphragmatic excursion CARDIAC: Normal S1 and S2; no rubs, murmurs, or gallops ABDOMEN: Abdomen soft, non-tender, BS normal, No masses or organomegaly EXTREMITIES: Extremities normal, no deformities, edema, clubbing or skin discoloration. Good capillary refill., No ulcers NEURO: Gait normal. Sensation grossly intact, Cranial nerves II-XII intact Lines, Drains, and Airways Line Peripheral 07/23/18 0010 Admission to Hospital Short Right Wrist 20 Gauge 1 day Reviewed lines, drains, AND airways. Need to be continued Medications: Reviewed Diagnostic tests reviewed: Most recent imaging Most recent labs Margaret Palencia APRN.GORDO 07/24/2018 10:07 AM Signed SERVICE DATE: 07/24/2018 SERVICE TIME: 10:07 AM HOSPITAL MEDICINE PROGRESS NOTE NIGHT AND WEEKEND COVERAGE: Days: [phone], please page me for patient issues. Nights: [phone], please page Team GI 4 - 8th floor: [phone] Interval HPI Interval Events: MASSIEL overnight T Bili 5.1 this AM from 9.2. LFTs around the same as yesterday. Patient going for EUS/ERCP today with GI. NPO for procedure. Denies chest pain, SOB, N/V/D/C, abdominal pain, fever or chills. Bladder scan x 1 wnl, will discontinue. Patient denies urinary symptoms or difficulty urinating. Urology reviewed CT and confirmed normal enlarged prostate, recommended continuing home finasteride and outpatient follow up as needed. OBJECTIVE BP 124/77 Pulse 71 Temp (Src) 97.6 (Oral) Resp 18 Ht 5' 11 (1.80m) Wt 187 lb 2.7 oz (84.9kg) SpO2 96% BMI 26.12 kg/(m2). Physical Exam Performed: GENERAL: Alert, no distress, cooperative SKIN: Skin texture, turgor normal. No rashes or lesions. Jaundiced LUNGS: Lungs clear to auscultation, Good diaphragmatic excursion CARDIAC: Normal S1 and S2; no rubs, murmurs, or gallops ABDOMEN: Abdomen soft, non-tender, BS normal, No masses or organomegaly EXTREMITIES: Extremities normal, no deformities, edema, clubbing or skin discoloration. Good capillary refill., No ulcers NEURO: Gait normal. Sensation grossly intact, Cranial nerves II-XII intact Lines, Drains, and Airways Line Peripheral 07/23/18 0010 Admission to Hospital Short Right Wrist 20 Gauge 1 day Reviewed lines, drains, AND airways. Need to be continued Medications: Reviewed Diagnostic tests reviewed: Most recent imaging Most recent labs CARE COORDINATION: 67 year old male with PMH significant for CAD, HLP, BPH who is admitted with obstructive jaundice and GI consulted for the same. ? The patient has been complaining of dark urine and light colored stools since 3 days. Yesterday the noted yellowness of the skin. He went to local ER where he was noted to have elevated T bili and CT was done showing mild dilation of CBD and intrahepatic bile ducts, normal spleen and mild prominence of uncinate process of pancreas. ? With that information, he was transferred to [facility] where labs showed T bili 9.2,alk phos 256, AST 159 and ALT 258. Looking back at his labs, he did have T bili elevation to ~4-5 in 2009 when he was admitted for STEMI. ? He quit smoking many years ago, denies significant alcohol intake. Denies any weight loss. ASSESSMENT AND PLAN Assessment AND Plan, all Hosp Problems Active Hospital Problems as of 07/24/2018 Noted - Resolved Hospital * (Principal)Obstructive jaundice 07/22/2018 - Present Current Assessment AND Plan Assessment: Acute Tbili 9.2 on admission; +jaundice and icterus on exam; denies abd pain; good appetite; no weight loss Of note; presented to OSH with dark urine, light colored stools and abd pain x3 days OSH CT a/p showed concern for possible pancreatic mass and possible prostate mass (CT uploaded to [facility] 07/23) Plan: - Continue Prophylactic Zosyn and IVF - GI consulted; appreciate recs - Patient going for EGD/EUS with anesthesia and also ERCP with anesthesia today. NPO for this - IgG4 levels in process to determine if he could have autoimmune pancreatitis Prostate mass 07/23/2018 - Present Current Assessment AND Plan Assessment: Acute Hx of BPH; follows with Keila Bill 12/2017 Prostate BIOPSY: 03/12/2016. FINAL DIAGNOSIS--> BENIGN OSH CT a/p showed concern re: prostate mass indenting bladder approx 4 cm Plan: - Urology was consulted and reviewed CT scan which appears to be normal enlarged prostate which is consistent with exam - Continue home finasteride 5 mg QD - PSA in process - Follow up PRN with Keila Salinas as outpatient for continued management of BPH Medication and Non-Pharmacologic VTE Prophylaxis/Anticoagulants Anticoagulant AND Antiplatelet Medications Start Dose Route Frequency Ordered Stop 07/22/182199 enoxaparin 40 mg injection (LOVENOX) (Surgical Moderate Risk ) 40 mg SUBCUTANEOUS DAILY 07/22/182150 -- 07/22/18 220 vte non-pharmacologic prophylaxis - none indicated (nj,oh) VTE Prophylaxis: VTE prophylaxis appropriate Plan of care discussed with: Attending, Patient, Case Management and RN SIGNATURE: Margaret Palencia APRN.CNP PATIENT NAME: Guerrero Wilson DATE: July 24, 2018 TIME: 10:07 AM PAGER/CONTACT #: [id number] Progress Notes ([facility]): Loyda Nunez PRIME MINISTER 07/22/2018 12:15 PM Signed Pt walked in with concerns of jaundice. In review pt's skin was slight yellow ting to it and the sclera were yellow. He reports have stomach pain,increase with belching and gas, whitish light brown soft stool. Recommended [facility] for evaluation. Did send our notes to [facility]. fyi to pcp. Royce Springer MD 07/22/2018 12:23 PM Signed I agree. SR-ABDOMEN/PELVIS WITH Observed: 07/22/2018 Status: F Source: [place] CONTRAST - OVERREAD 12:[address] [facility] REPOSITORY * * *Final Report* * * DATE OF EXAM: Jul 22 2018 12:00AM OUT 0002 - CT OUTSIDE CD DICOM IMPORT -NBNR / PROCEDURE REASON: Previous report is inadequate * * * * Physician Interpretation * * * * EXAMINATION: OUTSIDE IMAGE INTERPRETATION Indication for the Request / Reason for Overread: Previous report is inadequate Specific Issue(s) Discussed: ?pancreatic mass Images Reviewed: CT of abdomen and pelvis with contrast performed on 07/22/2018 Image Quality: technically adequate images Overread Date: 07/24/2018 2:28 PM MQ: Over_2 Comparison: Report from prior CT abdomen pelvis 02/10/2006 and complete abdominal ultrasound 11/28/2017 Additional Clinical History: Painless jaundice, possible pancreatic mass. RESULT: Liver: No mass. Biliary: Mild intrahepatic and moderate extrahepatic bile duct dilation, transitioning sharply at the pancreatic head; common bile duct measures 1.3 cm just upstream from the pancreatic head. Gallbladder present, unremarkable. Spleen: Mild splenomegaly measuring 14.5 cm in craniocaudad dimension. No focal mass. Pancreas: Multiple calcifications scattered throughout the pancreas, compatible with prior pancreatitis. No pancreatic duct dilation; pancreatic duct measures 0.2 cm along pancreatic body on 2:32. Equivocal subtle pancreatic head lesion measuring 0.7 x 1.6 cm on 2:38, perhaps artifactual given lack of substantial upstream pancreatic duct dilatation. Adrenals: No mass. Kidneys: No focal solid renal mass. No hydronephrosis. GI tract: No dilation or wall thickening. Colonic diverticulosis without acute inflammation. Normal appendix right lower quadrant. Lymph nodes: No abdominal or pelvic lymphadenopathy. Mesentery/Peritoneum: No ascites or mass. Retroperitoneum: No mass. Vasculature: The celiac axis and SMA are patent. The portal vein and branches, splenic vein, SMV, and hepatic veins are patent. Pelvis: Urinary bladder partially distended, with few right- sided bladder cellules queried, perhaps from chronic outlet obstruction. Nonspecific prostatic enlargement, with particular transition zone impression along bladder base. No pelvic soft tissue mass. No loculated collection. Bones/Soft Tissues: No destructive osseous lesions. Lower thorax: Platelike bibasilar atelectasis queried. Noncalcified 0.5 cm nodule abutting pleural margin and left lower lobe on 2:13. IMPRESSION: CHANGES OF CHRONIC CALCIFIC PANCREATITIS. EQUIVOCAL LESION IN PANCREATIC HEAD, PERHAPS ARTIFACTUAL NO ASSOCIATED UPSTREAM PANCREATIC DUCT DILATION. PANCREATIC PROTOCOL CT OR MRI WOULD BE OF VALUE TO BETTER CORROBORATE/REFUTE. ALTERNATIVELY, ENDOSCOPIC ULTRASOUND COULD ALSO BE CONSIDERED. BILIARY DILATION, TRANSITIONING SHARPLY IN PANCREATIC HEAD. THIS COULD BE FROM POST PANCREATITIS STRICTURE OR RELATED TO QUERIED / EQUIVOCAL PANCREATIC LESION. MILD SPLENOMEGALY. SMALL INDETERMINATE LUNG NODULE. SEE FOLLOW-UP RECOMMENDATIONS BELOW. Incidental Finding: No follow-up imaging for this incidentally detected lung nodule is recommended. If there are risk factors for lung malignancy or if the nodule has suspicious features (eg spiculated or upper lobe location), a follow-up chest CT exam could be obtained in [address] Freight Conductor: MANJIT Transcribe Date/Time: Jul 24 2018 2:28P Dictated by : ELAN CRAIG MD This examination was interpreted and the report reviewed and electronically signed by: ELAN CRAIG MD on Jul 24 2018 2:41PM EST [id number] PROGRESS Observed: 07/03/2018 Status: COMPLETED Source: [place] 1:[address] [facility] [place] REPOSITORY HNO ID: [id number] Author: Leigh (Gordo) Older Service: (none) Author Type: Nurse Practitioner Type: Progress Notes Filed: 07/03/2018 1:45 PM Note Text: CC: Patient presents with: Physical: Form HPI Guerrero Wilson is a 67 year old male who presents today for physical for work. 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 Denies any concerns or issues today. Syncopal episode in December. This was attributed to dehydration after extensive work-up in ER. He has had no further episodes. REVIEW OF SYSTEMS General: no fevers, no chills, no night sweats, no recurrent infections, no change in appetite, no change in energy and no significant changes in weight Respiratory: no cough, no wheezing, no shortness of breath, no hemoptysis Cardiovascular: no chest pain, no chest pressure, no palpitations and no swelling GI: No nausea, vomiting, or diarrhea Musculoskeletal: Negative for joint pain or swelling, back pain or muscle pain Skin: Negative for lesions, rash, and itching Psych: Negative for sleep disturbance, mood disorder and recent psychosocial stressors Neurologic: no headaches, no seizures, no dizziness, no lightheadedness, no memory loss, no confusion, no numbness or tingling of hands, no numbness or tingling of feet, no muscle weakness, no involuntary movements, no tremor, no visual disturbance PAST MEDICAL HISTORY Diagnosis Date - ACL tear Right knee, chronic - BPH with obstruction/lower urinary tract symptoms 08/17/2006 - ELEVATED PROSTATE SPECIFIC ANTIGEN 08/17/2006 - ERECTILE DYSFUNCTION 08/13/2005 - Family history of malignant neoplasm of gastrointestinal tract - Hypertrophy of prostate with urinary obstruction and other lower urinary tract symptoms (LUTS) 08/17/2006 - Other and unspecified hyperlipidemia - Septic shock(785.52) 2009 E. coli - STEMI (ST elevation myocardial infarction) (HCC) 12/30/2009 Septic myocarditis PAST SURGICAL HISTORY Procedure Laterality Date - COLONOS W/REM POLYP SNARE 08/10/16 small adenomatous polyp - 5 year follow up - COLONOSCOP W/ OR W/O [facility] SPEC 11/09/2002 Colonoscopy - COLONOSCOP W/ OR W/O [facility] SPEC 05/24/2008 Normal Colonoscopy - LEFT HEART CATH,PERCUTANEOUS 12/30/2009 Cardiac cath, L heart - PAST SURGICAL HISTORY OF 1984 vasectomy - PAST SURGICAL HISTORY OF 05/23/1998 right knee arthroscopy ALLERGIES Patient has no known allergies. MEDICATIONS finasteride (PROSCAR) 5 mg tablet Take 1 tablet by mouth once daily. sildenafil, antihypertensive, (REVATIO) 20 mg tablet Take 1 tablet by mouth as directed. 1-5 tablets taken on empty stomach and with sexual stimulation following. acyclovir (ZOVIRAX) 800 mg tablet Take 1 tablet by mouth four times daily. MULTIVITAMIN TAB Take one(1) tablet daily. FAMILY HISTORY Problem Relation Age of Onset - Colon Cancer Mother dec. age 72, - Cancer Father Brain,dec. age 71 - Diabetes Father - None Sister - Cancer Maternal Grandfather - Clotting Disorder Sister DVT Social History Substance Use Topics - Smoking status: Former Smoker Years: 4.00 Types: Cigarettes Quit date: 10/10/1974 - Smokeless tobacco: Never Used Comment: Quit 1974 1-2 cig. daily - Alcohol use Yes Comment: rare beer, rare wine PHYSICAL EXAM BP 130/81 Pulse 67 Temp 36.5 ?C (97.7 ?F) (Temporal Artery) Resp 16 Wt 86.2 kg (190 lb) SpO2 97% BMI 26.50 kg/m? General Appearance: well appearing, in no acute distress, alert Pysch: mood and affect broad and appropriate Skin: Skin color, texture, turgor normal for age; No rashes or lesions Eyes: PERRLA, conjunctiva pink and moist, no icterus, sclera white, non-injected Neck: Thyroid normal size and symmetric without palpable nodules, No bruits, Neck supple, No adenopathy Oropharynx: lips normal without lesions, tongue midline and normal, soft palate, uvula, and tonsils normal Lymph nodes: No supraclavicular lymphadenopathy Lungs: Lungs clear to auscultation. No wheezing, rhonchi, rales Heart: RRR without murmur, gallop, or rubs. No ectopy Neurological: Gait normal. Muscle strength normal. Ext: no edema in LE bilaterally, good distal pulses DIABETES SCREEN due on 06/28/2021 COLORECTAL CANCER SCREENING,SEE MODIFIER due on 08/10/2021 LIPID SCREEN due on 11/23/2022 DTAP,TDAP,TD(2 - Td) due on 02/05/2024 PROSTATE CANCER SCREENING DISCUSSION Completed ABDOMINAL AORTIC ANEURYSM SCREENING TOPIC Completed ADULT PREVNAR-13 Completed INFLUENZA Completed HEPATITIS C SCREENING Completed PNEUMOVAX AGE 65 AND OVER WITH 5YR LOOKBACK Completed ASSESSMENT/PLAN: 1. 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 Form completed, signed and returned to patient Routine follow-up with PCP as instructed Prescription instructions reviewed with patient as applicable. Potential red flag symptoms discussed with the patient. Reviewed appropriate action plan to take if red flag symptoms occur. Patient agreeable to treatment plan. Leigh Winston APRN.GORDO CNOV Observed: 07/03/2018 Status: COMPLETED Source: [place] 11:20 AM [facility] RE[facility]ITORY Office Visit ([facility]) GUERRERO WILSON ([id number]) 1950 M Date Time Provider Department 07/03/18 11:20 AM LEIGH WINSTON (GORDO) [facility] During your visit today, we recorded the following information about you: Temperature Pulse Respiration Blood pressure 97.7 degrees 67/minute 16/minute 130/81 Weight 86.2 kg Leigh Winston, BIN OPERATORRADHA 07/03/2018 1:45 PM Signed CC: Patient presents with: Physical: Form HPI Guerrero Wilson is a 67 year old male who presents today for physical for work. 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 Denies any concerns or issues today. Syncopal episode in December. This was attributed to dehydration after extensive work-up in ER. He has had no further episodes. REVIEW OF SYSTEMS General: no fevers, no chills, no night sweats, no recurrent infections, no change in appetite, no change in energy and no significant changes in weight Respiratory: no cough, no wheezing, no shortness of breath, no hemoptysis Cardiovascular: no chest pain, no chest pressure, no palpitations and no swelling GI: No nausea, vomiting, or diarrhea Musculoskeletal: Negative for joint pain or swelling, back pain or muscle pain Skin: Negative for lesions, rash, and itching Psych: Negative for sleep disturbance, mood disorder and recent psychosocial stressors Neurologic: no headaches, no seizures, no dizziness, no lightheadedness, no memory loss, no confusion, no numbness or tingling of hands, no numbness or tingling of feet, no muscle weakness, no involuntary movements, no tremor, no visual disturbance PAST MEDICAL HISTORY Diagnosis Date - ACL tear Right knee, chronic - BPH with obstruction/lower urinary tract symptoms 08/17/2006 - ELEVATED PROSTATE SPECIFIC ANTIGEN 08/17/2006 - ERECTILE DYSFUNCTION 08/13/2005 - Family history of malignant neoplasm of gastrointestinal tract - Hypertrophy of prostate with urinary obstruction and other lower urinary tract symptoms (LUTS) 08/17/2006 - Other and unspecified hyperlipidemia - Septic shock(785.52) 2009 E. coli - STEMI (ST elevation myocardial infarction) (HCC) 12/30/2009 Septic myocarditis PAST SURGICAL HISTORY Procedure Laterality Date - COLONOS W/REM POLYP SNARE 08/10/16 small adenomatous polyp - 5 year follow up - COLONOSCOP W/ OR W/O BRSH SPEC 11/09/2002 Colonoscopy - COLONOSCOP W/ OR W/O BRSH SPEC 05/24/2008 Normal Colonoscopy - LEFT HEART CATH,PERCUTANEOUS 12/30/2009 Cardiac cath, L heart - PAST SURGICAL HISTORY OF 1984 vasectomy - PAST SURGICAL HISTORY OF 05/23/1998 right knee arthroscopy ALLERGIES Patient has no known allergies. MEDICATIONS finasteride (PROSCAR) 5 mg tablet Take 1 tablet by mouth once daily. sildenafil, antihypertensive, (REVATIO) 20 mg tablet Take 1 tablet by mouth as directed. 1-5 tablets taken on empty stomach and with sexual stimulation following. acyclovir (ZOVIRAX) 800 mg tablet Take 1 tablet by mouth four times daily. MULTIVITAMIN TAB Take one(1) tablet daily. FAMILY HISTORY Problem Relation Age of Onset - Colon Cancer Mother dec. age 72, - Cancer Father Brain,dec. age 71 - Diabetes Father - None Sister - Cancer Maternal Grandfather - Clotting Disorder Sister DVT Social History Substance Use Topics - Smoking status: Former Smoker Years: 4.00 Types: Cigarettes Quit date: 10/10/1974 - Smokeless tobacco: Never Used Comment: Quit 1974 1-2 cig. daily - Alcohol use Yes Comment: rare beer, rare wine PHYSICAL EXAM BP 130/81 Pulse 67 Temp 36.5 ?C (97.7 ?F) (Temporal Artery) Resp 16 Wt 86.2 kg (190 lb) SpO2 97% BMI 26.50 kg/m? General Appearance: well appearing, in no acute distress, alert Pysch: mood and affect broad and appropriate Skin: Skin color, texture, turgor normal for age; No rashes or lesions Eyes: PERRLA, conjunctiva pink and moist, no icterus, sclera white, non-injected Neck: Thyroid normal size and symmetric without palpable nodules, No bruits, Neck supple, No adenopathy Oropharynx: lips normal without lesions, tongue midline and normal, soft palate, uvula, and tonsils normal Lymph nodes: No supraclavicular lymphadenopathy Lungs: Lungs clear to auscultation. No wheezing, rhonchi, rales Heart: RRR without murmur, gallop, or rubs. No ectopy Neurological: Gait normal. Muscle strength normal. Ext: no edema in LE bilaterally, good distal pulses DIABETES SCREEN due on 06/28/2021 COLORECTAL CANCER SCREENING,SEE MODIFIER due on 08/10/2021 LIPID SCREEN due on 11/23/2022 DTAP,TDAP,TD(2 - Td) due on 02/05/2024 PROSTATE CANCER SCREENING DISCUSSION Completed ABDOMINAL AORTIC ANEURYSM SCREENING TOPIC Completed ADULT PREVNAR-13 Completed INFLUENZA Completed HEPATITIS C SCREENING Completed PNEUMOVAX AGE 65 AND OVER WITH 5YR LOOKBACK Completed ASSESSMENT/PLAN: 1. 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 Form completed, signed and returned to patient Routine follow-up with PCP as instructed Prescription instructions reviewed with patient as applicable. Potential red flag symptoms discussed with the patient. Reviewed appropriate action plan to take if red flag symptoms occur. Patient agreeable to treatment plan. Leigh Winston APRN.H[employer]ER Referring Provider: ROYCE SPRINGER [[id number]] Allergies As of Date: 07/03/2018 (No Known Allergies) Date Reviewed: 07/03/2018 Reviewed by: Luz Walsh Floor Installation Mechanic - Fully Assessed Reason for Visit: Physical [83] Cmt: Form Reason For Visit History Recorded Primary Visit Diagnosis:Encounter for physical examination related to employment [Z02.1] Prescriptions as of 07/03/2018 Sig: FINASTERIDE 5 MG TABLET Take 1 tablet by mouth once d* SILDENAFIL (ANTIHYPERTENSIVE)* Take 1 tablet by mouth as dir* ACYCLOVIR 800 MG TABLET Take 1 tablet by mouth four t* * MULTIVITAMIN TABLET Take one(1) tablet daily. 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 REPOSITORY TYPE CODE TESTS RESULT OUT OF REFERENCE UNITS RANGE LAB WBC 3.70-11.00 k/uL WBC 6.29 LAB RBC 4.20-6.00 m/uL RBC 5.32 LAB HGB 13.0-17.0 g/dL Hemoglobin 16.3 LAB HCT 39.0-51.0 % Hematocrit 49.3 LAB MCV 80.0-100.0 fL MCV 92.7 LAB MCH 26.0-34.0 pG MCH 30.6 LAB MCHC 30.5-36.0 g/dL MCHC 33.1 LAB RDWCV 11.5-15.0 % RDW-CV 12.8 LAB PLTCT 150-400 k/uL Platelet Count 244 LAB MPV 9.0-12.7 fL MPV 9.1 LAB ANEUT % Neut% 52.8 LAB AANEUT 1.45-7.50 k/uL Abs Neut 3.32 LAB ALYMP % Lymph% 37.5 LAB AALYMP 1.00-4.00 k/uL Abs Lymph 2.36 LAB AMONO % [place]% 7.2 LAB AAMONO <0.87 k/uL Abs [place] 0.45 LAB AEOS % Eosin% 1.4 LAB AAEOS <0.46 k/uL Abs Eosin 0.09 LAB ABASO % Baso% 1.1 LAB AABASO <0.11 k/uL Abs Baso 0.07 LAB AUNRBC 0 /100 WBC NRBCs 0.0 LAB ABNRBC <0.01 k/uL Absolute nRBC <0.01 LAB DTYP DTYPE Auto Diff Performed By: #### CBCDIF, CMP #### [facility] [address] [place], [place] [address] COMP METABOLIC PANEL Collected: 06/28/2018 Status: F Source: [place] 7:[address] [facility] REPOSITORY TYPE CODE TESTS RESULT OUT OF REFERENCE UNITS RANGE LAB TP 6.3-8.0 g/dL Protein, Total 6.7 LAB ALB 3.9-4.9 g/dL Albumin 4.1 LAB CA 8.5-10.2 mg/dL Calcium, Total 9.3 LAB TBIL 0.2-1.3 mg/dL Bilirubin, High Total 1.4 LAB ALKP 36-108 U/L Alkaline Phosphatase 64 LAB AST 14-40 U/L AST 20 LAB GLU 74-99 mg/dL Glucose 92 Result Comment: The [place] [employer] (ADA) provides guidance for cutoff values for fasting glucose and random glucose. The ADA defines fasting as no caloric intake for at least 8 hours. Fas ting plasma glucose results between 100 to 125 mg/dL indicate increased risk for diabetes (prediabetes). Fasting plasma glucose results greater than or equal to 126 mg/dL meet the criteria for diagnosis of diabetes. In the absence of unequivocal hyperglycemia, results should be confirmed by repeat testing. In a patient with classic symptoms of hyperglycemia or hyperglycemic crisis, random plasma glucose results greater than or equal to 200 mg/dL meet the criteria for diagnosis of diabetes. Reference: Standards of Medical Care in Diabetes 2016, [place] [employer]. Diabetes Care. 2016.39(Suppl 1). LAB BUN 9-24 mg/dL BUN 18 LAB CRET 0.73-1.22 mg/dL Creatinine 0.79 LAB NA 136-144 mmol/L Sodium 140 LAB K 3.7-5.1 mmol/L Potassium 3.8 LAB CL 97-105 mmol/L Chloride High 106 LAB CO2 22-30 mmol/L CO2 23 LAB AGAP 9-18 mmol/L Anion Gap 11 LAB ALT 10-54 U/L ALT 15 LAB GFRAA eGFR- Amer. >60 LAB GFRNAA . eGFR-All Other Races >60 Result Comment: eGFR (Estimated GFR) Units of measure: mL/min/1.73 meters squared eGFR is derived from the reexpressed MDRD Study equation using the following parameters: serum creatinine, age, gender and race. The creatinine assay has been calibrated to be traceable to IDMS. An eGFR <60 mL/min/1.73m2 for >3 months is consistent with chronic kidney disease. Refer to KDOQI guidelines for clinical interpretation. In patients with unstable renal function, e.g. those with acute kidney injury, the eGFR may not accurately reflect actual GFR. Performed By: #### CBCDIF, CMP #### [facility] [address] [place], [place] [address] PROGRESS Observed: 12/15/2017 Status: COMPLETED Source: [place] 9:43 AM [facility] REPOSITORY HNO ID: [id number] Author: Keila Matt) Christina Service: (none) Author Type: Physician Patient Access Type: Progress Notes Filed: 12/15/2017 7:20 PM Note Text: CC: BPH w LUTS HPI 67 yo male with long history of BPH w LUTS recent biopsy was benign, and PSA is lower today He had been on Proscar 5 mg , still no significant change in his LUTS Flomax has been stopped over a year ago Previous 2 prostate biopsies were also benign. C/o ED and would like to try Sildenafil 20 mg LUTS: NOCTURIA yes 1-3, not bothered by it BIOPSY: 03/12/2016 FINAL DIAGNOSIS 1. Prostate, right base lateral, biopsy (A) - Benign prostatic tissue. 2. Prostate, right mid lateral, biopsy (B) - Benign prostatic tissue. 3. Prostate, right apex lateral, biopsy (C) - Benign prostatic tissue. 4. Prostate, right base medial, biopsy (D) - Benign prostatic tissue. 5. Prostate, right mid medial, biopsy (E) - Benign prostatic tissue. 6. Prostate, right apex medial, biopsy (F) - Benign prostatic tissue. 7. Prostate, left base lateral, biopsy (G) - Benign prostatic tissue. 8. Prostate, left mid lateral, biopsy (H) - Benign prostatic tissue. 9. Prostate, left apex lateral, biopsy (I) - Benign prostatic tissue. 10. Prostate, left base medial, biopsy (J) - Benign prostatic tissue. 11. Prostate, left mid medial, biopsy (K) - Benign?prostatic tissue. 12. Prostate, left apex medial, biopsy (L) - Benign prostatic tissue. LAB: PSA (ng/mL) Date Value 11/24/2017 2.43 02/16/2017 2.16 01/21/2016 3.01 01/29/2015 2.33 Creatinine Date Value Ref Range Status 11/23/2017 0.90 0.73 - 1.22 mg/dL Final 06/08/2016 0.91 0.70 - 1.40 mg/dL Final 06/04/2015 0.93 0.70 - 1.40 mg/dL Final 01/28/2014 0.74 0.70 - 1.40 mg/dL Final IMAGING: March 04, 2017 No imaging today ALLERGIES: March 04, 2017 Review of patient's allergies indicates no known allergies. CURRENT MEDICATIONS: March 04, 2017 Current Outpatient Prescriptions: finasteride (PROSCAR) 5 mg tablet Take 1 tablet by mouth once daily. Disp: 90 tablet Rfl: 3 MULTIVITAMIN TAB Take one(1) tablet daily. Disp: Rfl: 0 sildenafil, antihypertensive, (REVATIO) 20 mg tablet Take 1 tablet by mouth as directed. 1-5 tablets taken on empty stomach and with sexual stimulation following. Disp: 30 tablet Rfl: 3 acyclovir (ZOVIRAX) 800 mg tablet Take 1 tablet by mouth four times daily. Disp: 40 tablet Rfl: 0 No current facility-administered medications for this visit. REVIEW OF SYSTEMS March 04, 2017 GENERAL:SEE HPI, No weight loss, malaise or fevers. GENITOURINARY: No history of dysuria, frequency or incontinence The remainder of the ROS was negative. PHYSICAL EXAMINATION March 04, 2017 Blood pressure 132/84, pulse 72, weight 82.1 kg (181 lb). General appearance: Well appearing, alert, in no acute distress, well-hydrated, well nourished Abdomen: Normal abdominal exam, Abdomen soft, non-tender. Bowel sounds normal. No masses, organomegaly MALE EXAM: No scrotal lesions, cysts, rashes. Epididymes AND testes: normal size, position, without masses Urethra AND meatus: normal size AND position w/o lesion or discharge Penis: circumcised, w/o plaques, lesions, masses, or deformities. Rectal Exam: Prostate: size ( 30 grams), symmetrical, nontender, w/o nodules. IMPRESSION/PLAN: > History of BPH w/ LUTS > SKYLER today > ED > Sildenafil Rx escripted > Reviewed PSA with patient > Refill for Proscar given today > 1 year Appt w/ YUAN Delacruz MT, PA-C + PSA Lab prior to visit YUAN Chin MT, PA-C Electronically signed CNOV Observed: 12/15/2017 Status: COMPLETED Source: [place] 9:00 AM [facility] REPOSITORY Office Visit (UROLWS) GUERRERO WILSON ([id number]) 1950 M Date Time Provider Department 12/15/17 9:00 AM KEILA SALINAS) UROLWS During your visit today, we recorded the following information about you: Pulse Blood pressure Weight 72/minute 132/84 82.1 kg HECTOR Delacruz 12/15/2017 7:20 PM Signed CC: ANDquot; BPH w LUTS ANDquot; HPI 67 yo male with long history of BPH w LUTS recent biopsy was benign, and PSA is lower today He had been on Proscar 5 mg , still no significant change in his LUTS Flomax has been stopped over a year ago Previous 2 prostate biopsies were also benign. C/o ED and would like to try Sildenafil 20 mg LUTS: NOCTURIA yes 1-3, not bothered by it BIOPSY: 03/12/2016 FINAL DIAGNOSIS 1. Prostate, right base lateral, biopsy (A) - Benign prostatic tissue. 2. Prostate, right mid lateral, biopsy (B) - Benign prostatic tissue. 3. Prostate, right apex lateral, biopsy (C) - Benign prostatic tissue. 4. Prostate, right base medial, biopsy (D) - Benign prostatic tissue. 5. Prostate, right mid medial, biopsy (E) - Benign prostatic tissue. 6. Prostate, right apex medial, biopsy (F) - Benign prostatic tissue. 7. Prostate, left base lateral, biopsy (G) - Benign prostatic tissue. 8. Prostate, left mid lateral, biopsy (H) - Benign prostatic tissue. 9. Prostate, left apex lateral, biopsy (I) - Benign prostatic tissue. 10. Prostate, left base medial, biopsy (J) - Benign prostatic tissue. 11. Prostate, left mid medial, biopsy (K) - Benign?prostatic tissue. 12. Prostate, left apex medial, biopsy (L) - Benign prostatic tissue. LAB: PSA (ng/mL) Date Value 11/24/2017 2.43 02/16/2017 2.16 01/21/2016 3.01 01/29/2015 2.33 Creatinine Date Value Ref Range Status 11/23/2017 0.90 0.73 - 1.22 mg/dL Final 06/08/2016 0.91 0.70 - 1.40 mg/dL Final 06/04/2015 0.93 0.70 - 1.40 mg/dL Final 01/28/2014 0.74 0.70 - 1.40 mg/dL Final IMAGING: March 04, 2017 No imaging today ALLERGIES: March 04, 2017 Review of patient's allergies indicates no known allergies. CURRENT MEDICATIONS: March 04, 2017 Current Outpatient Prescriptions: finasteride (PROSCAR) 5 mg tablet Take 1 tablet by mouth once daily. Disp: 90 tablet Rfl: 3 MULTIVITAMIN TAB Take one(1) tablet daily. Disp: Rfl: 0 sildenafil, antihypertensive, (REVATIO) 20 mg tablet Take 1 tablet by mouth as directed. 1-5 tablets taken on empty stomach and with sexual stimulation following. Disp: 30 tablet Rfl: 3 acyclovir (ZOVIRAX) 800 mg tablet Take 1 tablet by mouth four times daily. Disp: 40 tablet Rfl: 0 No current facility-administered medications for this visit. REVIEW OF SYSTEMS March 04, 2017 GENERAL:SEE HPI, No weight loss, malaise or fevers. GENITOURINARY: No history of dysuria, frequency or incontinence The remainder of the ROS was negative. PHYSICAL EXAMINATION March 04, 2017 Blood pressure 132/84, pulse 72, weight 82.1 kg (181 lb). General appearance: Well appearing, alert, in no acute distress, well-hydrated, well nourished Abdomen: Normal abdominal exam, Abdomen soft, non-tender. Bowel sounds normal. No masses, organomegaly MALE EXAM: No scrotal lesions, cysts, rashes. Epididymes ANDamp; testes: normal size, position, without masses Urethra ANDamp; meatus: normal size ANDamp; position w/o lesion or discharge Penis: circumcised, w/o plaques, lesions, masses, or deformities. Rectal Exam: Prostate: size ( 30 grams), symmetrical, nontender, w/o nodules. IMPRESSION/PLAN: ANDgt; History of BPH w/ LUTS ANDgt; SKYLER today ANDgt; ED ANDgt; Sildenafil Rx escripted ANDgt; Reviewed PSA with patient ANDgt; Refill for Proscar given today ANDgt; 1 year Appt w/ YUAN Delacruz MT, PA-C + PSA Lab prior to visit YUAN Chin MT, PA-C Electronically signed Referring Provider: LEIGH WINSTON ([facility]) [[id number]] Allergies As of Date: 12/15/2017 (No Known Allergies) Date Reviewed: 12/15/2017 Reviewed by: Karina Wynne Ma - Fully Assessed Reason for Visit: Follow Up [171] Hematuria [335] Primary Visit Diagnosis:BPH with obstruction/lower urinary tract symptoms [N40.1, N13.8] Other Visit Diagnoses:Elevated prostate specific antigen (PSA) [R97.20] Impotence of organic origin [N52.9] Order(s):UA DIP, URINE (POC) [[id number]] Order #: [id number] finasteride (PROSCAR) 5 mg tabletTake 1 tablet by mouth once daily.Disp: 90 tabletRfl: 3 sildenafil, antihypertensive, (REVATIO) 20 mg tabletTake 1 tablet by mouth as directed. 1-5 tablets taken on empty stomach and with sexual stimulation following.Disp: 30 tabletRfl: 3 PSA/PROSTSPECAG DIAG [SQPSA] Order #: [id number] FUTURE Prescriptions as of 12/15/2017 Sig: FINASTERIDE 5 MG TABLET Take 1 tablet by mouth once d* * MULTIVITAMIN TABLET Take one(1) tablet daily. SILDENAFIL (ANTIHYPERTENSIVE)* Take 1 tablet by mouth as dir* ACYCLOVIR 800 MG TABLET Take 1 tablet by mouth four t* Problem List As Of Date 12/15/2017 Noted Resolved Sebaceous cyst [L72.3] INVALID FOR*09/27/2011 Pure hypercholesterolemia [E78.00] INVALID FOR* Unspecified disorder of prostate [N42.9] INVALID FOR*09/27/2011 Erectile dysfunction [N52.9] INVALID FOR*12/15/2017 BPH with obstruction/lower urinary tract sympto*INVALID FOR* ELEVATED PROSTATE SPECIFIC ANTIGEN [R97.20] INVALID FOR* FAMILY HX COLON CANCER [Z80.0] INVALID FOR* Lower urinary tract symptoms (LUTS) [R39.9] INVALID FOR*07/01/2017 Polyp of colon [K63.5] INVALID FOR* Ulnar neuropathy at wrist, 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 SILDENAFIL (ANTIHYPERTENSIVE) 20 MG * 30 t* 3 12/15/2017 Cmt: Please call patient for billing and shipping information Route: ORAL Sig: Take 1 tablet by mouth as directed. 1-5 tablets taken on empty stomach and with sexual stimulation following. Medications Discontinued During This Encounter finasteride (PROSCAR) 5 mg tablet 90 t* 3 03/04/2017 12/15/2017 Route: ORAL Sig: Take 1 tablet by mouth once daily. Disc: Reason for discontinue is not on file. sildenafil (VIAGRA) 50 mg tablet 9 ta* 3 07/01/2017 12/15/2017 Class: [facility] Route: ORAL Sig: Take 1 tablet by mouth as needed. TAKE 30-60 MINUTES BEFORE SEXUAL INTERCOURSE NEEDED. Disc: Reason for discontinue is not on file. Disposition: Return in about 1 year (around 12/15/2018). Follow-up and Disposition History Recorded Encounter Status:Closed by KEILA SALINAS PA-C on 12/15/17 US ABDOMEN COMPLETE Observed: 11/28/2017 Status: F Source: [place] 12:[address] [facility] REPOSITORY * * *Final Report* * * DATE OF EXAM: Nov 28 2017 12:24PM [facility] 1040 - US ABDOMEN COMPLETE / PROCEDURE REASON: multiple diagnoses * * * * Physician Interpretation * * * * ULTRASOUND ABDOMEN COMPLETE: HISTORY: 67 years old Clinical information: Other microscopic hematuria Abnormal levels of other serum enzymes TECHNIQUE: Multiple images were obtained in the sagittal axial plane.Images stored and permanent archive. Comparison: 12/30/2009 07/05/2017 RESULT: Findings: Liver: No focal masses.. Echotexture normal . Biliary tree: Common duct normal size. No intrahepatic bile duct dilatation . Pancreas: The pancreas is not well seen due to overlying bowel gas. .. Gallbladder: There is sludge within the gallbladder. Possibly could be tiny stones also within the sludge. No gallbladder wall thickening is seen. Spleen: Spleen is enlarged measuring 14.1 x 8.8 x 12.1 cm. Aorta: Normal in size . Inferior vena cava: Unremarkable Kidneys: No focal masses. No hydronephrosis. . Impression: 1. Large amount of sludge in the gallbladder there could be some tiny nonshadowing stones within the sludge. 2. Mild splenomegaly Road [employer] Transcribe Date/Time: Nov 28 2017 12:35P Dictated by : IRWIN ZULUAGA DO This examination was interpreted and the report reviewed and electronically signed by: IRWIN ZULUAGA DO on Nov 28 2017 12:37PM EST [id number] Observed: 11/28/2017 Status: COMPLETED Source: [place] 11:38 AM [facility] RE[facility] HNO ID: [id number] Author: Stacie Huddleston Service: (none) Author Type: (none) Type: Progress Notes Filed: 11/28/2017 12:26 PM Note Text: Radiology Service Progress Note PATIENT NAME: Guerrero Wilson DATE OF SERVICE: November 28, 2017 TIME: 11:38 AM PATIENT IDENTITY VERIFICATION COMPLETED USING TWO (2) METHODS: Patient confirmed name verbally and Date of . PATIENT GENDER DATA: Male PATIENT RELEVANT IMPLANT DATA REVIEWED: Yes RADIOLOGY DEPARTMENT: Ultrasound PERIPHERAL IV DATA: Not applicable SIGNED BY: Stacie Huddleston November 28, 2017 11:38 AM Observed: 11/24/2017 Status: F Source: [place] URINE CULTURE 2:01 PM [facility] REPOSITORY Sp. Request/Comment: - Specimen received in preservative Culture Result - No growth (<1,000 CFU/ml) Performed By: #### URCUL #### [facility] [address] [place], [place] [address] PSA, DIAGNOSTIC Collected: 11/24/2017 Status: F Source: [place] 2:00 PM [facility] REPOSITORY TYPE CODE TESTS RESULT OUT OF REFERENCE UNITS RANGE LAB PSA 0.00-2.59 ng/mL PSA, Diagnostic 2.43 Result Comment: Total PSA test methodology used is the Electrochemiluminescence Immunoassay. Performed By: #### PSA, HREMOP, MONOLX #### [place] [address] HEPATITIS REMOTE PANEL Collected: 11/24/2017 Status: F Source: [place] 2:00 PM [facility] REPOS[facility] TYPE CODE TESTS RESULT OUT OF RANGE REFERENCE UNITS LAB AHBCOT Negative Hep B Core Negative Ab,Total LAB AHCV Negative Hepatitis C Ab Negative IA LAB HBSAGR Negative HBsAg Negative LAB AHBSAG Negative Abnormal HepB Surface Positive Alert Ab,Qual Result Comment: These results are consistent with previous exposure and/or immunity to the hepatitis B virus antigen. Performed By: #### PSA, HREMOP, MONOLX #### [place] [address] MONO SLIDE TEST Collected: 11/24/2017 Status: F Source: [place] 2:00 PM [facility] REPOSITORY TYPE CODE TESTS RESULT OUT OF REFERENCE UNITS RANGE LAB MONOLX Negative [place] Negative Slide Test Performed By: #### PSA, HREMOP, MONOLX #### [place] [address] RESP VIR PNL BY Collected: 11/23/2017 Status: F Source: [place] PCR 11:10 PM [facility] REPOS[facility] TYPE CODE TESTS RESULT OUT OF REFERENCE UNITS RANGE LAB RVPSRC Resp Viral Panl Nasopharyngeal Srce Swab LAB FLUARV Negative Influenza A Virus Negative LAB [id number] Negative Influenza A H1N1 Negative 09 LAB FLUBRV Negative Influenza B Virus Negative LAB RSVA Negative Resp Syncytial Negative Vir A LAB RSVB Negative Resp Syncytial Negative Vir B LAB PIV1 Negative Parainfluenza 1 Negative LAB PIV2 Negative Parainfluenza 2 Negative LAB PIV3 Negative Parainfluenza 3 Negative LAB HMPV Negative H Metapneumovirus Negative LAB HRV Negative Rhinovirus Negative LAB ADVBE Negative Adenovirus B/E Negative LAB ADVC Negative Adenovirus C Negative Performed By: #### RVPPCR #### [place] [address] URINALYSIS WITH Collected: 11/23/2017 Status: F Source: [place] MICROSCOPIC 8:47 AM [facility] REPOSIT[facility] TYPE CODE TESTS RESULT OUT OF RANGE REFERENCE UNITS LAB UCOL Yellow Color Abnormal [place] Alert LAB [facility] Clear Clarity Abnormal Cloudy Alert LAB UGLUC Negative mg/dL Glucose, Urine Negative LAB UBIL Negative Bilirubin, Urine Negative LAB UKET Negative Ketones, Urine Negative LAB USPG 1.005-1.030 Specific [place], Ur 1.027 LAB UHGB Negative Abnormal Hemoglobin/Blood, 2+ Alert Ur LAB UPH 4.5-8.0 pH 6.0 LAB UPROT Negative mg/dL Protein, Abnormal Urine 100 Alert LAB UUROB Normal Urobilinogen Normal LAB UNITR Negative Nitrites Negative LAB ULKEST Negative Leukest Negative LAB UCOM Comments SEE COMMENT Result Comment: N/A LAB UMCOM Urine SEE Bhavik Comment COMMENT Result Comment: N/A LAB UWBC 0-5 /HPF Abnormal Alert WBC 6-10 LAB URBC 0-3 /HPF Abnormal Alert RBC >25 LAB UCAST 0 /LPF Abnormal Alert Cast SEE COMMENT Result Comment: >10 Hyaline Cast LAB UCRYS 0 /HPF Abnormal Alert Crystals SEE COMMENT Result Comment: Few Calcium Oxalate Crystal Performed By: #### UAWMIC #### [facility] [address] [address] LIPID PANEL, BASIC Collected: 11/23/2017 Status: F Source: [place] 8:43 AM [facility] REPOSITORY TYPE CODE TESTS RESULT OUT OF REFERENCE UNITS RANGE LAB CHOL <200 mg/dL Cholesterol 135 Result Comment: <200 mg/dL, Desirable 200-239 mg/dL, Borderline high >239 mg/dL, High LAB TRIGLY <150 mg/dL Triglyceride 105 Result Comment: <150 mg/dL, Normal 150-199 mg/dL, Borderline high 200-499 mg/dL, High >499 mg/dL, Very high LAB HDL >39 mg/dL HDL-Cholesterol 49 Result Comment: 40-59 mg/dL, Acceptable >59 mg/dL, High: Negative risk factor for coronary heart disease <40 mg/dL, Low: Positive risk factor for coronary heart disease LAB LDL <100 mg/dL LDL-Cholesterol 65 Result Comment: <100 mg/dL, Optimal 100-129 mg/dL, Near optimal/above optimal 130-159 mg/dL, Borderline high 160-189 mg/dL, High >189 mg/dL, Very high Secondary prevention optimal LDL Cholesterol levels are recommended to be < 70 mg/dL LAB NONHDL <130 mg/dL Non HDL Cholesterol 86 Result Comment: <130 mg/dL, Optimal 130-159 mg/dL, Near optimal/above optimal 160-189 mg/dL, Borderline high 190-219 mg/dL, High >219 mg/dL, Very high Secondary prevention optimal non HDL Cholesterol levels are recommended to be < 100 mg/dL LAB FT hrs Fasting Time 14 LAB VLDL <30 mg/dL VLDL Cholesterol 21 LAB TCHDL <5.10 TC:HDL Ratio 2.76 LAB LDLHDL <2.54 LDL:HDL Ratio 1.33 Result Comment: Reference: 1. National Cholesterol Education Program ATP III Guideline At-A-Glance Quick Desk Reference: National Heart, Lung, and Blood [place]. National Institutes of Health. 2001: NIH Publication No. 01-3305. 2. An International Atherosclerosis Society position paper: global recommendations for the management of dyslipidemia: executive summary, Atherosclerosis. 2014: 232(2):410-413. Performed By: #### LIPB #### [facility] [address] [id number] CBC AND DIFFERENTIAL Collected: 11/23/2017 Status: F Source: [place] 8:[address] [facility] [place] REPOSITORY TYPE CODE TESTS RESULT OUT OF REFERENCE UNITS RANGE LAB WBC 3.70-11.00 k/uL WBC High 11.48 LAB RBC 4.20-6.00 m/uL RBC 5.06 LAB HGB 13.0-17.0 g/dL Hemoglobin 15.9 LAB HCT 39.0-51.0 % Hematocrit 47.9 LAB MCV 80.0-100.0 fL MCV 94.7 LAB MCH 26.0-34.0 pG MCH 31.4 LAB MCHC 30.5-36.0 g/dL MCHC 33.2 LAB RDWCV 11.5-15.0 % RDW-CV 12.0 LAB PLTCT 150-400 k/uL Platelet Count 258 LAB MPV 9.0-12.7 fL MPV 9.1 LAB ANEUT % Neut% 74.9 LAB AANEUT 1.45-7.50 k/uL Abs Neut High 8.59 LAB ALYMP % Lymph% 16.8 LAB AALYMP 1.00-4.00 k/uL Abs Lymph 1.93 LAB AMONO % [place]% 7.7 LAB AAMONO <0.87 k/uL Abs [place] High 0.88 LAB AEOS % Eosin% 0.3 LAB AAEOS <0.46 k/uL Abs Eosin 0.04 LAB ABASO % Baso% 0.3 LAB AABASO <0.11 k/uL Abs Baso 0.04 LAB AUNRBC 0 /100 WBC NRBCs 0.0 LAB ABNRBC <0.01 k/uL Absolute nRBC <0.01 LAB DTYP DTYPE Auto Diff Performed By: #### CBCDIF, CK, CMP #### [facility] [address], [place] [address] CK Collected: 11/23/2017 Status: F Source: [facility] 8:42 AM [facility] [place] REPOSITORY TYPE CODE TESTS RESULT OUT OF RANGE REFERENCE UNITS LAB CK 51-298 U/L Low CK 35 Result Comment: Please note the updated, gender-specific reference range for this test (effective 09/23/2016). Performed By: #### CBCDIF, CK, CMP #### [facility] [address], [place] [address] COMP METABOLIC PANEL Collected: 11/23/2017 Status: F Source: [place] 8:[address] [facility] [place] REPOSITORY TYPE CODE TESTS RESULT OUT OF REFERENCE UNITS RANGE LAB TP 6.3-8.0 g/dL Protein, Total 7.5 LAB ALB 3.9-4.9 g/dL Low Albumin 3.8 LAB CA 8.5-10.2 mg/dL Calcium, Total 9.5 LAB TBIL 0.2-1.3 mg/dL Bilirubin, High Total 2.5 LAB ALKP 36-108 U/L Alkaline High Phosphatase 198 LAB AST 14-40 U/L AST High 46 LAB GLU 74-99 mg/dL Glucose 94 Result Comment: The [place] Diabetes Association (ADA) provides guidance for cutoff values for fasting glucose and random glucose. The ADA defines fasting as no caloric intake for at least 8 hours. Fas ting plasma glucose results between 100 to 125 mg/dL indicate increased risk for diabetes (prediabetes). Fasting plasma glucose results greater than or equal to 126 mg/dL meet the criteria for diagnosis of diabetes. In the absence of unequivocal hyperglycemia, results should be confirmed by repeat testing. In a patient with classic symptoms of hyperglycemia or hyperglycemic crisis, random plasma glucose results greater than or equal to 200 mg/dL meet the criteria for diagnosis of diabetes. Reference: Standards of Medical Care in Diabetes 2016, [place] Diabetes Association. Diabetes Care. 2016.39(Suppl 1). LAB BUN 9-24 mg/dL BUN 15 LAB CRET 0.73-1.22 mg/dL Creatinine 0.90 LAB NA 136-144 mmol/L Sodium 136 LAB K 3.7-5.1 mmol/L Low Potassium 3.6 LAB CL 97-105 mmol/L Low Chloride 96 LAB CO2 22-30 mmol/L CO2 25 LAB AGAP 9-18 mmol/L Anion Gap 15 LAB ALT 10-54 U/L ALT High 91 LAB GFRAA eGFR- Amer. >60 LAB GFRNAA . eGFR-All Other Races >60 Result Comment: eGFR (Estimated GFR) Units of measure: mL/min/1.73 meters squared eGFR is derived from the reexpressed MDRD Study equation using the following parameters: serum creatinine, age, gender and race. The creatinine assay has been calibrated to be traceable to IDMS. An eGFR <60 mL/min/1.73m2 for >3 months is consistent with chronic kidney disease. Refer to KDOQI guidelines for clinical interpretation. In patients with unstable renal function, e.g. those with acute kidney injury, the eGFR may not accurately reflect actual GFR. Performed By: #### CBCDIF, CK, CMP #### [facility] [address] [place], [place] [address] PROGRESS Observed: 11/23/2017 Status: COMPLETED Source: [place] 7:[address] [facility] REPOSITORY HNO ID: [id number] Author: Leigh (Gordo) Older Service: (none) Author Type: Nurse Practitioner Type: Progress Notes Filed: 11/23/2017 9:16 AM Note Text: CC: Patient presents with: [facility] Follow Up HPI Guerrero Wilson is a 67 year old male who presents today for ER and hospital follow-up. No hospital records available at this time, patient is a reliable historian. Reports 11/18 woke up feeling fatigued and weak. [place] a little better Saturday, went out to eat in [place]. After eating appetizers he became extremely dizzy and passed out. EMS called, tried to sit him up and he passed out again. No seizure activity witnessed. EMS transported to [facility]. Per patient they did CT head, chest x-ray, echocardiogram and blood work which were all normal. Kept overnight and discharged next day. Was told syncope was due to dehydration or vasovagal episode. He was again feeling a little better Tuesday but since yesterday morning has been feeling fatigued, weak and has developed lower abdominal discomfort. Positive for low grade fever, last elevation yesterday of 99.8, nasal congestion, slight cough, headache. Lower abdominal discomfort described as dull ache. Also reports decreased appetite, excessive gas/belching, constipation, not sleeping well. Negative for nausea, vomiting, diarrhea, black/bloody stools. Has not treated constipation with anything. REVIEW OF SYSTEMS General: no night sweats, no recurrent infections and no significant changes in weight Respiratory: no wheezing, no shortness of breath, no hemoptysis Cardiovascular: no chest pain, no chest pressure, no palpitations and no swelling GI: See HPI : Negative for dysuria, frequency, hematuria, hesitancy and urgency Neurologic: no dizziness, no memory loss, no confusion, no numbness or tingling of hands, no numbness or tingling of feet, no tremor PAST MEDICAL HISTORY Diagnosis Date - ACL tear Right knee, chronic - BPH with obstruction/lower urinary tract symptoms 08/17/2006 - ELEVATED PROSTATE SPECIFIC ANTIGEN 08/17/2006 - ERECTILE DYSFUNCTION 08/13/2005 - Family history of malignant neoplasm of gastrointestinal tract - Hypertrophy of prostate with urinary obstruction and other lower urinary tract symptoms (LUTS) 08/17/2006 - Other and unspecified hyperlipidemia - Septic shock(785.52) 2009 E. coli - STEMI (ST elevation myocardial infarction) (HCC) 12/30/2009 Septic myocarditis PAST SURGICAL HISTORY Procedure Laterality Date - COLONOS W/REM POLYP SNARE 08/10/16 small adenomatous polyp - 5 year follow up - COLONOSCOP W/ OR W/O BRSH SPEC 11/09/2002 Colonoscopy - COLONOSCOP W/ OR W/O BRSH SPEC 05/24/2008 Normal Colonoscopy - LEFT HEART CATH,PERCUTANEOUS 12/30/2009 Cardiac cath, L heart - PAST SURGICAL HISTORY OF 1984 vasectomy - PAST SURGICAL HISTORY OF 05/23/1998 right knee arthroscopy ALLERGIES Review of patient's allergies indicates no known allergies. MEDICATIONS sildenafil (VIAGRA) 50 mg tablet Take 1 tablet by mouth as needed. TAKE 30-60 MINUTES BEFORE SEXUAL INTERCOURSE NEEDED. finasteride (PROSCAR) 5 mg tablet Take 1 tablet by mouth once daily. MULTIVITAMIN TAB Take one(1) tablet daily. acyclovir (ZOVIRAX) 800 mg tablet Take 1 tablet by mouth four times daily. FAMILY HISTORY Problem Relation Age of Onset - Colon Cancer Mother dec. age 72, - Cancer Father Brain,dec. age 71 - Diabetes Father - None Sister - Cancer Maternal Grandfather - Clotting Disorder Sister DVT Social History Substance Use Topics - Smoking status: Former Smoker Years: 4.00 Types: Cigarettes Quit date: 10/10/1974 - Smokeless tobacco: Never Used Comment: Quit 1974 1-2 cig. daily - Alcohol use Yes Comment: rare beer, rare wine PHYSICAL EXAM BP 110/80 Pulse 75 Temp 36.7 ?C (98 ?F) (Temporal Artery) Resp 16 Wt 82.6 kg (182 lb) SpO2 97% BMI 25.38 kg/m2 General Appearance: appears fatigued, in no acute distress, alert Pysch: mood and affect broad and appropriate Skin: Skin color, texture, turgor normal for age; No rashes or lesions Eyes: PERRLA, EOM's intact, conjunctiva pink and moist, no icterus, sclera white, non-injected Ears: external ears normal to inspection and palpation, canals clear, Left tympanic membrane normal. , Right tympanic membrane normal Nose/sinus: Nares normal. Septum midline. Mucosa normal. No drainage., No sinus tenderness Neck: Thyroid normal size and symmetric without palpable nodules, Neck supple, No adenopathy Oropharynx: lips normal without lesions, tongue midline and normal, soft palate, uvula, and tonsils normal Back: No pain to palpation Lungs: Lungs clear to auscultation. No wheezing, rhonchi, rales Heart: RRR without murmur, gallop, or rubs. No ectopy Abdomen: Abdomen soft, non-distended. Bowel sounds normal. Mild LUQ and epigastric tenderness with palpation. No guarding or rebound tenderness. Negative Rubio's sign. No masses, organomegaly Extremities: No edema, skin discoloration. Good capillary refill. Pulses: 2+ Neurological: Negative findings: speech normal, muscle strength normal, reflexes normal and symmetric, gait normal ASSESSMENT/PLAN: 1. Weakness - ICD9: 780.79, ICD10: R53.1 (primary diagnosis) Subjective weakness. Etiology unclear. Differential diagnoses includes viral syndrome or prodromal symptoms Work-up with labs and nasal swab for respiratory virus panel - CBC + DIFF - COMP METABOLIC PANEL - URINALYSIS WITH MICROSCOPIC - CK CREATINE KINASE - RESP VIRUS PANEL BY PCR Advised rest, push fluids and Tylenol or Ibuprofen for discomfort/aches Follow-up pending results 2. Fatigue, unspecified type - ICD9: 780.79, ICD10: R53.83 As above - CBC + DIFF - COMP METABOLIC PANEL - URINALYSIS WITH MICROSCOPIC - CK CREATINE KINASE - RESP VIRUS PANEL BY PCR 3. Abdominal discomfort - ICD9: 789.00, ICD10: R10.9 Differential Diagnosis includes Constipation and viral syndrome/prodromal symptoms - Treatment for constipation discussed including Miralax - Plan as above - CBC + DIFF - COMP METABOLIC PANEL - URINALYSIS WITH MICROSCOPIC - CK CREATINE KINASE - RESP VIRUS PANEL BY PCR 4. Syncope, unspecified syncope type - ICD9: 780.2, ICD10: R55 No further syncopal or near syncopal episodes. Exam findings benign. Likely due to dehydration or vasovagal response Leigh Older, H[employer] Prescription instructions reviewed with patient as applicable. Potential red flag symptoms discussed with the patient. Reviewed appropriate action plan to take if red flag symptoms occur. Patient agreeable to treatment plan. ECHOCARDIOGRAM COMPLETE Observed: 11/20/2017 Status: F Source: [facility] 12:31 PM TWO REPOSITORY Transthoracic Echocardiogram Patient: STEVE Harden Med Rec#: [id number] (Age): 1950(67y) Height: 180.34(cm)/70(i Study Date: 11/20/2017 Weight: 83.92(kg)/185(l Room#: 601 BSA: 2.04 Type: Inpatient Loc: [facility] Echo Lab Sex: M Reading: Piotr Moura MD Referring: SWETA LIU Diploma Dental Assistant: Santiago Olivares RDCS History: Syncope. Diagnosis: ICD-10-PCS Syncope and collapse (R55) Syncope (780.2) CPT Code(s): ECHO COMPLETE W/ DOPPLER (79176) Study Quality The study quality is technically difficult. The study is technically limited due to poor acoustic windows. The study is technically limited due to poor parasternal windows. The study is technically limited due to poor apical windows. The study is technically limited due to patient body habitus. Summary: Patient identity verified and ID band on (pause and confirm). Procedure explained and patient verified understanding. Conclusions: Suboptimal endocardial visualization; no obvious segmental abnormalities seen. Mild to moderate concentric left ventricular hypertrophy is observed. The estimated ejection fraction is 60-65%. Grossly normal valves. Findings Reason For Study: Syncope. Left Ventricle: The left ventricular chamber size is normal. Mild to moderate concentric left ventricular hypertrophy is observed. There is normal left ventricular systolic function. The estimated ejection fraction is 60-65%. Abnormal left ventricular diastolic filling is observed, consistent with impaired relaxation. Suboptimal endocardial visualization; no obvious segmental abnormalities seen. Left Atrium: The left atrial chamber size is grossly normal. Right Ventricle: The right ventricular cavity size is normal. The right ventricular global systolic function is normal. Right Atrium: The right atrial cavity size is normal. Aortic Valve: The aortic valve is trileaflet. There is no dilatation of the thoracic aorta. Systolic excursion of the aortic valve is normal. There is no hemodynamically significant stenosis. There is no evidence of aortic regurgitation. Mitral Valve: The mitral valve leaflets appear normal. Mitral valve leaflet mobility appears normal. There is no evidence of mitral stenosis. There is no evidence of mitral regurgitation. Tricuspid Valve: The tricuspid valve leaflets are normal. Tricuspid valve leaflet mobility appears normal. There is no evidence of tricuspid valve regurgitation. Pulmonic Valve: The pulmonic valve is not well visualized. There is no pulmonic stenosis. There is no evidence of pulmonic regurgitation. Pericardium: There is no pericardial effusion. HR 73 BP 101/66 Measurements Chambers MM Name Value Normal Range AV cusp separation (MM) 2.4 cm none Chambers 2D Name Value Normal Range IVSd (2D) 1.42 cm none LVPWd (2D) 1.17 cm none IVS:LVPW ratio (2D) 1.21 ratio none LVIDd (2D) 3.66 cm none LVIDs (2D) 2.43 cm none LVIDd (2D) index 1.79 cm/m2 none LVIDs (2D) index 1.19 cm/m2 none LV FS (2D) 33.61 % none LV FS (Teichholz) (2D) 33.6 % none LV FS (cube) (2D) 33.6 % none EF Teichholz (2D) 63.28 % none Ao root diameter (2D) 2.7 cm none LA dimension (AP) 2D 3.5 cm none LA:Ao ratio (2D) 1.3 ratio none Aortic root diameter (2D) inde1.32 cm/m2 none LA dimension (2D) index 1.72 cm/m2 none Volumes/Mass Name Value Normal Range LA ESV SP 4CH (MOD) 35 ml none LA ESV SP 2CH (MOD) 27 ml none LV EDV SP 4CH (MOD) 87 ml none LV ESV SP 4CH (MOD) 31 ml none EF SP 4CH (MOD) 64.37 % none LV EDV SP 2CH (MOD) 104 ml none LV ESV SP 2CH (MOD) 43 ml none EF SP 2CH (MOD) 58.65 % none LV EDV BP 96 ml none LV ESV BP 39 ml none BP EF (MOD) 59.38 % none LV EDV BP index 47.05 ml/m2 none LV ESV BP index 19.12 ml/m2 none LV mass (2D) 162.93 g none LV mass (2D) index 79.86 g/m2 none Diastolic/Systolic Function Name Value Normal Range MV E-wave Vmax 0.49 m/sec none MV deceleration time 292 msec none MV A-wave Vmax 0.64 m/sec none MV E:A ratio 0.78 ratio (1.1 - 1.5) LV septal e' Vmax 0.08 m/sec none LV lateral e' Vmax 0.13 m/sec none LV average e' Vmax 0.1 m/sec none LV E:e' septal ratio 6.53 ratio none LV E:e' lateral ratio 3.89 ratio none LV average E:e' ratio 4.87 ratio none Aortic Valve Name Value Normal Range AV Vmax 1.14 m/sec (1 - 1.7) AV peak gradient 5.2 mmHg (Less Than 36) LVOT diameter 2.1 cm (1.7 - 2.5) LVOT Vmax 0.78 m/sec (0.7 - 1.1) LVOT peak gradient 2 mmHg none DOI (Vmax) 0.68 ratio none JODIE (continuity Vmax) 2.35 cm2 none JODIE (continuity Vmax) index 1.15 cm2/m2 none Pulmonic Valve/Qp:Qs Name Value Normal Range PV Vmax 1.04 m/sec (0.6 - 0.9) PV peak gradient 4.33 mmHg none Electronically Signed at 11/20/2017 12:31:30 by: Piotr Moura MD XR CHEST AP/PA AND Observed: 11/19/2017 Status: F Source: [facility] 7:10 PM REPOSITORY Order Comment: Reason for exam?:syncope Injury/Trauma or Illness?:Illness/Other How long have you had these symptoms (acute/chronic)?:Acute History of cancer?:na Surgeries, chemotherapy, or radiation?:na Type of Exam?:Initial Additional signs and symptoms?:Pt resting on ED cart, family at bedside, remains on ccm. VSS. NSR on monitor. Pt was reportedly out to eat with his family when he had sudden syncopal episode. Was caught by family and lowered to the ground. Shortly after ems got there and they say the pt up he had a 2nd syncopal episode witnessed by ems. Pt currently is A AND Ox3, with neuro exam normal. Speech clear, perrla, denies n/t, denies ringing in ears. Pt sts now he just feels tired. Sts was feeling dizzy on the way to ED but denies at this time. Ortho VS + however, Dr. Davis aware. Denies headache, answers all questions appropriately, follows all commands. 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 NO fall or trauma per family. BS wnl per ems. Pt denies any pain. Denies diarrhea/fevers . Denies cp/sob. Respirs even and unlabored, skin p/w/d/i, pms intact x4. No distress noted. Will cont to monitor. EXAMINATION: TWO VIEWS OF THE CHEST 11/19/2017 7:14 pm COMPARISON: None. HISTORY: Syncopal episode. FINDINGS: Cardiomediastinal silhouette and pulmonary vasculature are normal. No airspace opacity, pleural effusion, or pneumothorax. IMPRESSION: No acute abnormality. Workstation ID: [id number] Dictated by: CHRISSIE SHARMA on [facility] Nov 19, 2017 8:01:26 PM EST Transcribed by: CHRISSIE SHARMA on [facility] Nov 19, 2017 8:01:26 PM EST Finalized by: CHRISSIE SHARMA on [facility] Nov 19, 2017 8:01:[address] HEAD OR BRAIN Observed: 11/19/2017 Status: F Source: [facility] WITHOUT CONTRAST 7:10 PM TWO REPOSITORY Order Comment: Reason for exam?:syncope, fall Injury/Trauma or Illness?:Injury/Trauma How long have you had these symptoms (acute/chronic)?:Acute Type of Exam?:Initial Mechanism of injury?:syncope, fall EXAMINATION: CT OF THE HEAD WITHOUT CONTRAST 11/19/2017 TECHNIQUE: CT of the head was performed without the administration of intravenous contrast. Dose modulation, iterative reconstruction, and/or weight based adjustment of the mA/kV was utilized to reduce the radiation dose to as low as reasonably achievable. COMPARISON: None. HISTORY: Syncopal episode with fall. FINDINGS: BRAIN/VENTRICLES: No acute intracranial hemorrhage or extraaxial fluid collection. Bradshaw-white differentiation is maintained. No evidence of mass, mass effect or midline shift. No hydrocephalus. Age commensurate parenchymal volume loss. ORBITS: The visualized portion of the orbits demonstrate no acute abnormality. SINUSES: Mucosal thickening within the right maxillary sinus. SOFT TISSUES/SKULL: No acute abnormality of the visualized skull or soft tissues. IMPRESSION: No acute intracranial abnormality. Right maxillary sinus disease. Workstation ID: [id number] Dictated by: CHRISSIE SHARMA on [facility] Nov 19, 2017 8:43:51 PM EST Transcribed by: CHRISSIE SHARMA on [facility] Nov 19, 2017 8:43:51 PM EST Finalized by: CHRISSIE SHARMA on Sat Nov 19, 2017 8:43:51 PM EST ALLERGIES ALLERGIES DATE TYPE / CODE NAME / CODE REACTION SEVERITY SOURCE 09/22/2018 Drug No Known Unknown [facility] Allergy/416 Allergies/R13409 Hospital 699568(SNOM 0388(RXNORM) Repository ED CT) Drug NO KNOWN [facility] Class/32662 ALLERGIES [facility] [place] 1003(SNOMED Repository CT) Drug NO KNOWN [facility] Class/70606 ALLERGIES Repository 1003(SNOMED CT) ENCOUNTERS ENCOUNTERS ADMIT/DISCHARGE ACCOUNT NUMBER ADMITTING ENCOUNTER LOCATION SOURCE CLASS 10/24/2018/10/25/19 [id number] Ambulatory [address] Repository 10/24/2018 [id number] [facility] Repository 10/24/2018/10/24/19 [id number] Ambulatory [address] Repository 09/27/2018/09/28/20 [id number] Ambulatory [address] Repository 09/22/2018/09/22/20 [id number] [facility] [address] ding:ED Repository 09/18/2018/09/18/20 [id number] Ambulatory [address] [place] Repository 09/18/2018/09/18/20 [id number] [place], [address] Repository 08/02/2018/08/02/20 [id number] Ambulatory [address] [place] Repository 08/02/2018/08/07/20 [id number] Ambulatory [address] [place] Repository 08/01/2018/08/01/20 [id number] Ambulatory [address] [place] Repository 08/01/2018/08/01/20 [id number] Ambulatory [address] [place] Repository 07/24/2018/07/24/20 [id number] Ambulatory [address] [place] Repository 07/24/2018/07/24/20 [id number] Ambulatory [address] Repository 07/22/2018/07/26/20 [id number] [place]AK[place], [address] Repository 07/22/2018/07/22/20 [id number] Emergency [facility] ding:ED Repository 07/03/2018/07/05/20 [id number] Ambulatory [address] [place] Repository 06/28/2018/06/28/20 [id number] Ambulatory [address] Repository 12/15/2017/12/20/19 [id number] Ambulatory [address] Repository 11/28/2017/11/28/19 [id number] Ambulatory [address] Repository 11/24/2017/11/24/19 [id number] Ambulatory [address] Repository 11/23/2017/11/23/19 [id number] Ambulatory [address] Repository 11/23/2017/11/23/19 [id number] Ambulatory [address] Repository 11/19/2017/11/20/19 [id number] [facility] [address] [place] [address] [facility] PAYERS PAYERS ENCOUNTER GUARANTOR PAYER SUBSCRIBER SOURCE 09/22/2018 GUERRERO WILSON Primary GUERRERO Fina Raya [id number] [place] Insurance:MEDICARE JRDOB: [place], [place] PART A [address] [address]Yva: (330) Number: Repository [phone] () [id number] Date:2018-09-22 09/22/2018 Secondary GUERRERO Raya Insurance:AARPPolicy JRDOB: [facility] Number: [id number] [place] [address] [id number] Repository Date:2895-17-72[address], [place] [address]KE: 09/22/2018 Tertiary NOT GIVENUNK [place] Insurance:SELF PAY [facility] Number: Effective Repository Date:2018-09-22 07/22/2018 GUERRERO WILSON Primary GUERRERO G STEVE Catherineoster [id number] Insurance:MEDICARE JRDOB: [place], [place] PART A [address] [address]Dle: [phone] Number: Repository [phone] () [id number] Date:2018-07-22 07/22/2018 Secondary GUERRERO Raya Insurance:AARPPolicy JRDOB: [facility] Number: [id number] [id number] Repository Date:[id number], [place] [address]WN: 07/22/2018 Tertiary NOT GIVENUNK [place] Insurance:SELF PAY [facility]: Effective Repository Date:2018-07-22 11/19/2017 GUERRERO WILSON Primary GUERRERO WILSON [facility] Rep[facility] icy Number: [id number] [id number] [address] [place] Date:[id number] [place] [address]Gjd: [phone] PART A CLAIMSPO [id number]: () [facility] [id number], [phone] () [place] [address]WN: 11/19/2017 Secondary GUERRERO WILSON [facility] Insurance:AARolicy .: Repository Number: [id number] [address] Date:[id number] [place] [id number], [place] [address]Afu: [phone]: [phone]
== END 2018-09-22 11:31 | disposition home or self-care (01) ==
PROVIDERS: Emergency Provider Emergency Medicine; Family Provider Internal Medicine; PCP Internal Medicine
DX: R53.83 Other fatigue (principal); N40.0 Benign prostatic hyperplasia without lower urinary tract symptoms; K76.0 Fatty (change of) liver, not elsewhere classified; Z87.891 Personal history of nicotine dependence; Z79.899 Other long term (current) drug therapy
CPT/HCPCS: 36415; 71045; 74177; 80053; 81001; 83605; 83690; 84484; 85025; 85610; 85730; 87040; 87086; 87088; 93005; 96360; 99283; J7030; Q9967; A4216

== ENCOUNTER 2022-11-15 09:39 | Emergency (ER) | payer MEDICARE, OTHER, SELFPAY ==
[2022-11-15 09:41] VITALS: BP 148/77; PULSE 81; RESP 16; TEMP 36.1; O2SAT 100; BMI 25.5
--- NOTE | 2022-11-15 10:41 | CT_ITS ---
STUDY: CT ABDOMEN AND PELVIS WITHOUT CONTRAST REASON FOR EXAM: Male, 72 years old. Kidney Stone. Left flank pain with radiation to the left lower quadrant. History of prior WHIPPLE procedure. RADIATION DOSAGE (If Supplied By Facility): CTDIvol = ( 10.20 ) mGy, DLP = ( 562.93 ) mGycm TECHNIQUE: Transaxial images were obtained from the dome of the diaphragm to the symphysis pubis without oral contrast, and without intravenous contrast. Sagittal and coronal images were reconstructed. Individualized dose optimization techniques were used for this CT. COMPARISON: Comparison is made with prior study dated 09/22/2018. FINDINGS: Stable mild increased markings in the posterior medial segment of the right lower lobe suggestive of a scarring. The visualized portions of the heart are within normal limits. Mild degree of central pneumobilia most likely secondary to the prior surgical intervention. The patient is status post cholecystectomy. Normal spleen. There has been resection of the head and uncinate process of the pancreas in keeping with history of prior Whipple''s. Persistent calcifications throughout the body and tail portion of the pancreas in keeping with chronic pancreatitis. Normal bilateral adrenal glands. Normal right kidney. 2 adjacent tiny nonobstructive intrarenal calculi are seen in the lower pole calyx of the left kidney. Mild degree of left hydronephrosis due to a tiny calculus at the left ureterovesical junction as it enters the urinary bladder. Normal visualized stomach. Normal small intestine. There are multiple colonic diverticula consistent with diverticulosis. The appendix is visualized and appears normal. There is scattered atherosclerotic calcification of the abdominal aorta, without a demonstrated aneurysm. Normal inferior vena cava. Normal retroperitoneum. Diffuse bladder wall thickening although the bladder is not completely distended. Questionable papillary mass in the left side of the urinary bladder with a punctate calcification along its anterior margin. Marked enlargement of the prostate with indentation at the bladder base worse on the left side. The prostate measures 6 cm x 4.9 cm. Normal abdominal wall. There is loss of the normal lumbar lordosis. CT/Abdomen/Pelvis without Cont IMPRESSION: Status post resection of the head and uncinate process of the pancreas and the cholecystectomy. 2. Tiny adjacent nonobstructive intrarenal calculi lower Pole kicks of the left kidney. Mild degree of left hydronephrosis due to a tiny calculus at the left ureterovesical junction. Marked enlargement of the prostate as described. Electronically Signed: Rico Skinner MD at 11:31 EST ,
--- NOTE | 2022-11-15 10:43 | EDS_ITS ---
HPI History of Present Illness Chief Complaint: Flank Pain Informant: patient Onset/Context/Timing Onset: Today Context: Sudden Onset Current Severity: Severe Maximum Severity: Severe Narrative Narrative: Patient presents with rather abrupt onset of left flank pain this morning. He had gotten up this morning and felt well and then had abrupt onset of pain wrapping around his left flank. He does report nausea and vomiting secondary to pain. He has a history of BPH and takes finasteride. He has been able to urinate without difficulty. He denies history of kidney stones. [facility] Medical History (Updated 11/15/22 @ 12:[address] Anabel Nichols MD) BPH (benign prostatic hyperplasia) Home Medications finasteride 5 mg tablet 5 mg PO DAILY 08/30/17 [History Last Taken Unknown] multivitamin (Multiple Vitamins tablet) 1 ea PO DAILY 08/30/17 [History Last Taken Unknown] hydrocodone-acetaminophen 5-325mg 5mg-325mg 1 tab PO Q6H PRN PRN Pain 3 days #10 TABLETS 11/15/22 [Rx Last Taken Unknown] ketorolac 10 mg tablet 10 mg PO Q8H PRN pain 3 days #10 tabs 11/15/22 [Rx Last Taken Unknown] ondansetron 4 mg disintegrating tablet 4 mg PO Q8H PRN PRN Nausea #10 tabs 11/15/22 [Rx Last Taken Unknown] Allergy/AdvReac Type Severity Reaction Status Date / Time No Known Allergies Allergy Verified 09/22/18 07:40 Surgical History H/O Whipple procedure Social History Smoking Status: Former smoker ROS ROS ED Constitutional Constitutional ED: Denies chills or fever(s) Eyes Eyes: Denies change in vision or discharge from eye(s) ENT ENT ED: Denies discharge from eye(s), rhinorrhea or sore throat Cardiovascular Cardiovascular: Denies chest pain or palpitations Respiratory/Chest Respiratory/Chest: Denies cough or dyspnea Gastrointestinal Gastrointestinal: Reports abdominal pain, nausea and vomiting; Denies diarrhea Genitourinary Genitourinary ED: Denies difficulty urinating or dysuria Musculoskeletal Musculoskeletal: Denies back pain or extremity pain Integumentary Denies Abrasions or rash Neurologic Neurologic: Denies headache(s) or weakness Psychiatric Psychiatric: Denies anxiety or depression Allergic/Immunologic Allergic/Immunologic ED: Denies lip swelling or urticaria EXAM Physical Exam Const Vital Signs: 11/15/22 09:41 11/15/22 10:57 11/15/22 11:06 Temperature 97.0 F L Temperature Source Temporal Pulse Rate 81 78 Respiratory Rate 16 16 Respiratory Effort Normal Respiratory Pattern Normal Blood Pressure 148/77 H 138/78 H Blood Pressure Mean 100 98 Pulse Ox 100 99 Oxygen Delivery Method Room Air Room Air Positive well nourished and well developed General Appearance ED: well developed HEENT Reports normocephalic and head/scalp atraumatic Eyes PERRL and EOMs intact bilaterally Neck supple Chest Wall inspection of chest normal and palpation of chest normal Resp normal respiratory effort and clear to auscultation bilaterally Cardio regular rate and regular rhythm GI GI Narrative: Mild left lower quadrant tenderness palpation. No masses. Palpation: soft Back/Spine General Back: CVA tenderness left Extremity normal to inspection Neuro oriented x3 and no sensory deficits noted Sensorium / Orientation: alert Motor Exam: strength 5/5 throughout Psych mental status grossly normal Skin no rashes or lesions noted MDM MDM MDM Narrative Medical decision making narrative: Patient given Toradol, morphine, Zofran, IV fluids. Lab work obtained to eval uate for leukocytosis or electrolyte derangement. Urinalysis obtained to evaluate for hematuria or infection. CT flank obtained given concern for kidney stone. Lab Data Attestation: I reviewed the patient's lab results. Labs: Laboratory Results - last 24 hr 11/15/22 11/15/22 11/15/22 10:04 10:04 11:06 WBC 12.2 H RBC 5.29 Hgb 16.1 Hct 47.6 MCV 90.0 MCH 30.4 MCHC 33.8 RDW Std Deviation 42.5 RDW Coeff of Joel 12.9 Plt Count 277 MPV 9.1 Immature Gran % (Auto) 0.400 Neut % (Auto) 75.4 H Lymph % (Auto) 17.0 L [place] % (Auto) 6.2 Eos % (Auto) 0.4 Baso % (Auto) 0.6 Absolute Neuts (auto) 9.2 H Absolute Lymphs (auto) 2.07 Nucleated RBC % 0 Sodium 143 Potassium 3.4 L Chloride 109 H Carbon Dioxide 24.0 Anion Gap 10 BUN 22 H Creatinine 1.17 Estim Creat Clear Calc 60.78 Est GFR (MDRD) Af Amer 79 Est GFR (MDRD) Non-Af 65 BUN/Creatinine Ratio 18.8 Glucose 116 H Calcium 9.4 Urine Color Yellow Urine Clarity Sl. Cloudy Urine pH 6.0 Ur Specific [place] 1.020 Urine Protein 15 H Urine Glucose (UA) Normal Urine Ketones 15 H Urine Occult Blood 250 H Urine Nitrite Negative Urine Bilirubin Negative Urine Urobilinogen Normal Ur Leukocyte Esterase Negative Urine RBC 25-50 SEEN Urine WBC 0 SEEN Ur Squamous Epith Cells 0 SEEN Urine Bacteria 0 SEEN Urine Mucus 0 SEEN Radiography Diagnostic Testing: Clinical Impression(s) from Imaging Studies Abdomen/Pelvis CT 11/15/22 10:41 IMPRESSION: Status post resection of the head and uncinate process of the pancreas and the cholecystectomy. 2. Tiny adjacent nonobstructive intrarenal calculi lower Pole kicks of the left kidney. Mild degree of left hydronephrosis due to a tiny calculus at the left ureterovesical junction. Marked enlargement of the prostate as described. Electronically Signed: Rico Skinner MD at 11:31 EST , Treatment and Re-Evaluation Narrative: CBC reveals a white count of 12.2 with 75% neutrophils. Chemistry studies reveal slightly low potassium at 3.4. BUN is 22 and creatinine is 1.17. Urinalysis reveals 25-50 RBCs but no sign of infection and [address] of the flank reveals small nonobstructive intrarenal calculi on the left. He also has a tiny calculus at the left UVJ. On repeat evaluation patient is resting comfortably and has no complaints. I will write him for Toradol, Zofran, [place] at home. He is referred to Dr. Tenorio for follow-up and return instructions have been given. Discharge Plan Triage Chief Complaint: Flank Pain ED Provider: Anabel Nichols Dx/Rx/DC Orders Clinical Impression: Ureterolithiasis Instructions: ED Kidney Stone w/ Colic Prescriptions: New hydrocodone-acetaminophen 5-325 mg tablet 1 tab PO Q6H PRN PRN (Reason: Pain) 3 Days Qty: 10 0RF ondansetron 4 mg tablet,disintegrating 4 mg PO Q8H PRN PRN (Reason: Nausea) Qty: 10 0RF ketorolac 10 mg tablet 10 mg PO Q8H PRN (Reason: pain) 3 Days Qty: 10 0RF No Action multivitamin [Multiple Vitamins] 1 EACH tablet 1 ea PO DAILY finasteride 5 MG tablet 5 mg PO DAILY Primary Care Provider: Royce Springer Referrals: Miguel Angel Tenorio MD [Med Staff - Active Staff] - As Needed Royce Springer MD [Primary Care Provider] - Disposition Disposition: Home, Self Care
[2022-11-15 10:52] LABS: Absolute Lymphocyte Count 2.07 X10^3/uL (0.83-4.51); Absolute Neutrophil Count 9.2 X10^3/uL (2.0-7.7); Basophil# 0.07 X10^3/uL; Basophil% 0.6 % (0-1); Eosinophil# 0.05 X10^3/uL; Eosinophils% 0.4 % (0-5); Hematocrit 47.6 % (40-54); Hemoglobin 16.1 g/dL (13.0-16.5); Lymphocyte # 2.07 X10^3/ul (0.83-4.51); Mean Corp Hgb Conc 33.8 g/dL (32-36); Mean Corpuscular Hgb 30.4 pg (27.0-32.0); Mean Platelet Vol. 9.1 fl (6.2-12.0); Monocyte# 0.76 X10^3/uL; Monocyte% 6.2 % (0-10); NRBC Flagged by Analyzer 0 % (0-5); Neutrophil # 9.17 X10^3/uL (2.7-7.7); Neutrophil % 75.4 % (47-70); Platelet Count 277 K/mm3 (150-450); RBC Distribution Width CV 12.9 % (11.6-14.6); RBC Distribution Width SD 42.5 fl (35.1-43.9); Red Blood Count 5.29 M/mm3 (4.6-6.2); White Blood Count 12.2 K/mm3 (4.4-11.0)
[2022-11-15] MEDS: Ondansetron 4 MG/2 ML Vial IV (10:53)
[2022-11-15] MEDS: Morphine 4 MG/ML Syringe IV (10:53)
[2022-11-15] MEDS: Ketorolac 15 MG/ML Vial IV (10:53)
[2022-11-15 11:06] VITALS: BP 138/78; PULSE 78; RESP 16; O2SAT 99
[2022-11-15 11:07] LABS: Anion Gap 10 (5-15); BUN 22 mg/dL (7-18); BUN/Creat Ratio 18.8 RATIO (10-20); Calcium,Total 9.4 mg/dL (8.5-10.1); Chloride 109 mmol/L (98-107); Creatinine, Serum 1.17 mg/dL (0.70-1.30); EST Glomerular Filtration Rate 65 mL/min (>60); Est Glom Filt Rate - Afr Amer 79 mL/min (>60); Estimated Creatinine Clearance 60.78 ml/min; Glucose 116 mg/dL (74-106); Potassium 3.4 mmol/L (3.5-5.1); Sodium Level 143 mmol/L (136-145)
[2022-11-15 11:12] LABS: Bacteria 0 SEEN /hpf (None Seen); Mucous, Urine 0 SEEN /hpf (<or=2+); Squamous Epithelial Cells - UA 0 SEEN /hpf (0-5); White Blood Cells 0 SEEN /hpf (0-5)
[2022-11-15 11:17] LABS: Color, Urine Yellow (Yellow); Glucose, Dipstick Normal (Normal); Ketone-Dipstick 15 mg/dl (Negative); Leukocyte Esterase-Dipstick Negative /ul (Negative); Nitrite-Dipstick Negative (Negative); Occult Blood-Urine 250 /ul (Negative); Protein-Dipstick 15 mg/dl (Negative); Urine Bilirubin Dipstick Negative (Negative); Urine Clarity Sl. Cloudy (Clear); Urine Urobilinogen Normal (Normal)
[2022-11-15 11:35] LABS: Red Blood Cells-Urine 25-50 SEEN /hpf (0-5)
[2022-11-15 12:10] VITALS: BP 133/64; PULSE 64; RESP 18; O2SAT 99
== END 2022-11-15 12:21 | disposition home or self-care (01) ==
PROVIDERS: Emergency Provider Emergency Medicine; PCP Internal Medicine; Visit Provider Emergency Medicine
DX: N13.2 Hydronephrosis with renal and ureteral calculous obstruction (principal); R10.9 Unspecified abdominal pain; Z87.891 Personal history of nicotine dependence
CPT/HCPCS: 74176; 80048; 81001; 85025; 96374; 96375; 99283; A4216; J2405

== ENCOUNTER 2024-03-12 08:30 | Emergency (ER) | payer MEDICARE, OTHER, SELFPAY ==
[2024-03-12 08:31] VITALS: BP 148/101; PULSE 88; RESP 16; TEMP 36.1; O2SAT 100; BMI 25.7
--- NOTE | 2024-03-12 08:42 | EDS_ITS ---
HPI History of Present Illness Chief Complaint: Flank Pain [facility] Medical History (Updated 03/12/24 @ 10:[address] Javier Awan, DO) BPH (benign prostatic hyperplasia) Home Medications ?Medication ?Instructions ?Recorded ?Last Taken ?Type finasteride 5 mg tablet 5 mg PO DAILY 08/30/17 Unknown History multivitamin (Multiple Vitamins 1 ea PO DAILY 08/30/17 Unknown History tablet) hydrocodone-acetaminophen 5-325mg 1 tab PO Q6H PRN PRN Pain 3 days 11/15/22 Unknown Rx 5mg-325mg #10 TABLETS ketorolac 10 mg tablet 10 mg PO Q8H PRN pain 3 days #10 11/15/22 Unknown Rx tabs ondansetron 4 mg disintegrating 4 mg PO Q8H PRN PRN Nausea #10 tabs 11/15/22 Unknown Rx tablet ondansetron 4 mg disintegrating 4 mg PO Q8H PRN PRN Nausea #10 tabs 03/12/24 Unknown Rx tablet oxycodone 5 mg capsule 5 mg PO Q6H PRN pain 3 days #12 03/12/24 Unknown Rx caps Allergy/AdvReac Type Severity Reaction Status Date / Time No Known Allergies Allergy Verified 03/12/24 08:31 Surgical History H/O Whipple procedure Social History Smoking Status: Former smoker EXAM Physical Exam Const Vital Signs: 03/12/24 08:31 03/12/24 09:31 03/12/24 10:00 Temperature 96.9 F L Temperature Source Temporal Pulse Rate 88 87 88 Respiratory Rate 16 16 18 Blood Pressure 148/101 H 132/74 H 158/94 H Blood Pressure Mean 116 93 115 Pulse Ox 100 99 98 Oxygen Delivery Method Room Air Room Air 03/12/24 11:01 Temperature Temperature Source Pulse Rate 88 Respiratory Rate 16 Blood Pressure 142/87 H Blood Pressure Mean 105 Pulse Ox 98 Oxygen Delivery Method Room Air MDM MDM MDM Narrative Medical decision making narrative: HISTORY OF PRESENT ILLNESS: 73-year-old male presents with left-sided flank pain with associated nausea. He states he developed severe left-sided flank pain rating to the groin initially noticed pain on Tuesday (3 days prior presentation). States it got slightly better over the weekend and then came back severely this morning. Notes left flank pain that radiates to the groin and some nausea but no vomiting. No fever. No chest pain or shortness of breath. Denies any hematuria or change in urinary habits. Notes feels very similar to prior kidney stone. REVIEW OF SYSTEMS: Pertinent positives: Flank pain, nausea Pertinent negatives: Fever, vomiting, chest pain PHYSICAL EXAM: Nursing triage notes reviewed, Vital signs reviewed Constitutional: please see mdm HENT: MMM Eyes: Pupils equal round and reactive to light, Extraocular muscles intact Neck: No stridor, no JVD, full neck ROM Lungs: Clear to auscultation, No wheezing or rales. No increased work of breathing, no conversational dyspnea, no accessory muscle use, no nasal flaring. No respiratory distress noted Heart: Regular rate and rhythm, No murmurs, No rubs and No gallops, 2+ distal pulses (radial, femoral, posterior tibial) in all extremities Abdomen: Soft, there is no tenderness, rigidity, rebound or guarding, no obvious peritoneal signs, no palpable pulsatile abdominal masses, no auscultated abdominal bruit : No CVAT Extremities: No edema Neuro: No focal neurological deficits, cranial nerves II through XII intact, 5/5 strength in all extremities. Intact sensation to light touch in all extremities, 2+ reflexes bilateral patella tendons. Normal gait. No ataxia. Skin: No rash or lesions noted MEDICAL DECISION MAKING: Chief Complaint: Flank pain External records reviewed: Imaging reviewed: CT scan from November 2021 of the abdomen pelvis shows status post pancreatic resection,, left hydronephrosis, left UVJ stone Factors affecting care: none kidney stones, pancreatic resection, Social determinants of health: none History obtained from others: The patient's Consults: none [facility] Narrative: Patient was hemodynamically stable, afebrile and nontoxic-appearing. Exam without peritoneal signs, no CVA tenderness I considered the following differential diagnosis: Nephrolithiasis, pyelonephritis, UTI, AAA I obtained a broad lab and imaging workup to further elucidate etiology patient complaints. I treated the patient with IV fluids, Zofran and Toradol, morphine for symptomatic relief. ALL IMAGES (IF OBTAINED) HAVE BEEN PERSONALLY REVIEWED AND INTERPRETED BY MYSELF. CT scan of the abdomen pelvis read reviewed myself shows a small approximate 2 mm left nephrolithiasis with accompanying hydronephrosis. Radiology agrees my interpretation CBC without leukocytosis, severe anemia, no thrombocytopenia. BMP without significant Kina abnormalities, noted mild renal insufficiency Urinalysis shows no evidence of urinary inflammation suggestive of UTI The synthesis of the patient's history, physical exam, labs images suggest nephrolithiasis. Patient had nausea relief and pain relief after the above treatments. He is appropriate discharge home The patient and/or family, caregivers express understanding. The patient and/or family, caregivers agrees with the plan. Shared decision making: I will have a discussion with the patient and or visitors regarding risk/benefits of further testing or admission. They will be made aware of of the risk/benefits inherent in this decision they will be given the opportunity to voice understanding. Total critical care time today provided was at least 0 minutes. This excludes separately billable procedures. Critical care time (if documented) is secondary to the patient having high probability of clinically significant/life threatening deterioration in the patient's condition which required my urgent intervention. Impression: 1. Flank pain 2. Nephrolithiasis 3. Hydronephrosis Dispo: This note was generated with [employer] dictation software. It may contain incorrect words, spelling, and punctuation that were not noted in review of the chart prior to signing. Lab Data Labs: Laboratory Results - last 24 hr 03/12/24 03/12/24 09:04 09:50 WBC 8.8 RBC 5.53 Hgb 17.0 H Hct 51.0 MCV 92.2 MCH 30.7 MCHC 33.3 RDW Std Deviation 42.7 RDW Coeff of Joel 12.4 Plt Count 186 MPV 8.6 Immature Gran % (Auto) 0.300 Neut % (Auto) 72.9 H Lymph % (Auto) 18.8 L [place] % (Auto) 6.5 Eos % (Auto) 0.8 Baso % (Auto) 0.7 Absolute Neuts (auto) 6.4 Absolute Lymphs (auto) 1.65 Nucleated RBC % 0 Sodium 139 Potassium 4.2 Chloride 108 H Carbon Dioxide 26.0 Anion Gap 5 BUN 19 H Creatinine 1.54 H Estim Creat Clear Calc 45.50 Est GFR (MDRD) Af Amer 57 L Est GFR (MDRD) Non-Af 47 L BUN/Creatinine Ratio 12.3 Glucose 135 H Calcium 9.0 Urine Color Yellow Urine Clarity Clear Urine pH 6.0 Ur Specific [place] 1.015 Urine Protein Negative Urine Glucose (UA) Normal Urine Ketones Negative Urine Occult Blood 10 H Urine Nitrite Negative Urine Bilirubin Negative Urine Urobilinogen Normal Ur Leukocyte Esterase Negative Urine RBC 0-5 SEEN Urine WBC 0 SEEN Ur Squamous Epith Cells 0-5 SEEN Urine Bacteria 1+ Urine Mucus 0 SEEN Radiography Diagnostic Testing: Clinical Impression(s) from Imaging Studies Abdomen/Pelvis CT 03/12/24 08:44 IMPRESSION: 2.5 mm calculus at the left uterovesical junction causing left hydronephrosis and hydroureter. Nonobstructive calculi in the lower pole calyx of the left kidney. Heterogeneous enlargement of the prostate with indentation of the bladder base. Sigmoid diverticulosis. Status post resection of the head and uncinate process of the pancreas. Electronically Signed: Rico Skinner MD at 10:07 EDT Reading Location ID and State: [facility] / [place] , Service support , Discharge Plan Triage Chief Complaint: Flank Pain ED Provider: Javier Awan Dx/Rx/DC Orders Instructions: ED Kidney Stone with Pain Prescriptions: New oxycodone 5 mg capsule 5 mg PO Q6H PRN (Reason: pain) 3 Days Qty: 12 0RF ondansetron 4 mg tablet,disintegrating 4 mg PO Q8H PRN PRN (Reason: Nausea) Qty: 10 0RF No Action multivitamin [Multiple Vitamins] 1 EACH tablet 1 ea PO DAILY finasteride 5 MG tablet 5 mg PO DAILY hydrocodone-acetaminophen 5-325 mg tablet 1 tab PO Q6H PRN PRN (Reason: Pain) 3 Days Qty: 10 0RF ondansetron 4 mg tablet,disintegrating 4 mg PO Q8H PRN PRN (Reason: Nausea) Qty: 10 0RF ketorolac 10 mg tablet 10 mg PO Q8H PRN (Reason: pain) 3 Days Qty: 10 0RF Primary Care Provider: Royce Springer Referrals: Royce Springer MD [Primary Care Provider] - Activity Restrictions/Additional Instructions: Thank you for trusting us with your care today! Please take Tylenol (2 pills, 650 mg), ibuprofen (2 pills, 400 mg) every 6 hours as needed for pain and fever control. Please take Zofran as needed for nausea and vomiting. Please take oxycodone for the above regimen does not control your pain Please return to the emergency department if your symptoms change or worsen. Please follow with your primary care physician for further outpatient evaluation and management. Print Language: Com[place]an Disposition Disposition: Home, Self Care
--- NOTE | 2024-03-12 08:44 | CT_ITS ---
STUDY: CT ABDOMEN AND PELVIS WITHOUT CONTRAST REASON FOR EXAM: Male, 73 years old. Kidney Stone. Flank pain. RADIATION DOSAGE (If Supplied By Facility): CTDIvol = ( 7.31 ) mGy, DLP = ( 463.51 ) mGycm TECHNIQUE: Transaxial images were obtained from the dome of the diaphragm to the symphysis pubis without oral contrast, and without intravenous contrast. Sagittal and coronal images were reconstructed. Individualized dose optimization techniques were used for this CT. COMPARISON: Comparison is made with prior study dated November 15, 2022. FINDINGS: Minimal degree of right basilar atelectasis and/or scarring. Coronary calcification. Normal liver. The patient is status post cholecystectomy. Minimal amount of pneumobilia. Most likely secondary to prior cholecystectomy. Normal spleen. There are pancreatic calcifications in the distribution of the ducts consistent with chronic pancreatitis. The patient is status post resection of the head and uncinate process of the pancreas. Normal bilateral adrenal glands. Normal right kidney. Mild degree of left hydronephrosis and left hydroureter due to a 2.5 mm calculus at the left ureterovesical junction as it enters the bladder. Nonobstructive calculi in the lower pole of the left kidney. The largest calculus measures 4.8 mm. Mild degree of left perinephric stranding. Normal visualized stomach. Normal small intestine. There are multiple colonic diverticula consistent with diverticulosis. The appendix is visualized and appears normal. Normal abdominal aorta. Normal inferior vena cava. Normal retroperitoneum. Normal urinary bladder. There is heterogeneous enlargement of the prostate with indentation at the bladder base. The prostate measures 6.4 cm x 5.4 cm. Scattered calcifications within the prostate. Normal abdominal wall. There are degenerative changes of the visualized lumbar spine. CT/Abdomen/Pelvis without Cont IMPRESSION: 2.5 mm calculus at the left uterovesical junction causing left hydronephrosis and hydroureter. Nonobstructive calculi in the lower pole calyx of the left kidney. Heterogeneous enlargement of the prostate with indentation of the bladder base. Sigmoid diverticulosis. Status post resection of the head and uncinate process of the pancreas. Electronically Signed: Rico Skinner MD at 10:07 EDT ,
[2024-03-12] MEDS: Ketorolac 15 MG/ML Vial IV (09:07)
[2024-03-12] MEDS: 0.9% Normal Saline (1000mL) 1,000 ML 999 ML IV ×2 (09:07→10:48)
[2024-03-12] MEDS: Ondansetron 4 MG/2 ML Vial IV (09:07)
[2024-03-12 09:14] LABS: Absolute Lymphocyte Count 1.65 X10^3/uL (0.83-4.51); Absolute Neutrophil Count 6.4 X10^3/uL (2.0-7.7); Basophil# 0.06 X10^3/uL; Basophil% 0.7 % (0-1); Eosinophil# 0.07 X10^3/uL; Eosinophils% 0.8 % (0-5); Lymphocyte # 1.65 X10^3/ul (0.83-4.51); Lymphocyte % 18.8 % (19-41); Mean Corp Hgb Conc 33.3 g/dL (32-36); Mean Corpuscular Hgb 30.7 pg (27.0-32.0); Mean Corpuscular Volume 92.2 fL (80-94); Mean Platelet Vol. 8.6 fl (6.2-12.0); Monocyte# 0.57 X10^3/uL; Monocyte% 6.5 % (0-10); NRBC Flagged by Analyzer 0 % (0-5); Neutrophil # 6.41 X10^3/uL (2.7-7.7); Neutrophil % 72.9 % (47-70); Platelet Count 186 K/mm3 (150-450); RBC Distribution Width CV 12.4 % (11.6-14.6); RBC Distribution Width SD 42.7 fl (35.1-43.9); Red Blood Count 5.53 M/mm3 (4.6-6.2); White Blood Count 8.8 K/mm3 (4.4-11.0)
[2024-03-12 09:29] LABS: Anion Gap 5 (5-15); BUN 19 mg/dL (7-18); BUN/Creat Ratio 12.3 RATIO (10-20); Chloride 108 mmol/L (98-107); Creatinine, Serum 1.54 mg/dL (0.70-1.30); EST Glomerular Filtration Rate 47 mL/min (>60); Est Glom Filt Rate - Afr Amer 57 mL/min (>60); Glucose 135 mg/dL (74-106); Potassium 4.2 mmol/L (3.5-5.1); Sodium Level 139 mmol/L (136-145)
[2024-03-12 09:31] VITALS: BP 132/74; PULSE 87; RESP 16; O2SAT 99
[2024-03-12 09:55] LABS: Mucous, Urine 0 SEEN /hpf (<or=2+); White Blood Cells 0 SEEN /hpf (0-5)
[2024-03-12 10:00] VITALS: BP 158/94; PULSE 88; RESP 18; O2SAT 98
[2024-03-12 10:04] LABS: Color, Urine Yellow (Yellow); Glucose, Dipstick Normal (Normal); Ketone-Dipstick Negative (Negative); Leukocyte Esterase-Dipstick Negative /ul (Negative); Nitrite-Dipstick Negative (Negative); Occult Blood-Urine 10 /ul (Negative); Protein-Dipstick Negative (Negative); Specific Gravity, Urine 1.015 (1.002-1.030); Urine Bilirubin Dipstick Negative (Negative); Urine Clarity Clear (Clear); Urine Urobilinogen Normal (Normal)
[2024-03-12 10:37] LABS: Bacteria 1+ /hpf (None Seen); Red Blood Cells-Urine 0-5 SEEN /hpf (0-5); Squamous Epithelial Cells - UA 0-5 SEEN /hpf (0-5)
[2024-03-12] MEDS: Metoclopramide 10 MG/2 ML Vial 5 MG IV (10:48)
[2024-03-12] MEDS: Morphine 4 MG/ML Syringe IV (10:48)
[2024-03-12 11:01] VITALS: BP 142/87; PULSE 88; RESP 16; O2SAT 98
[2024-03-12 12:40] VITALS: BP 154/78; PULSE 87; RESP 16; TEMP 36.6; O2SAT 97
== END 2024-03-12 12:42 | disposition home or self-care (01) ==
PROVIDERS: Emergency Provider Emergency Medicine; PCP Internal Medicine; Visit Provider Emergency Medicine
DX: N13.2 Hydronephrosis with renal and ureteral calculous obstruction (principal); R10.9 Unspecified abdominal pain; Z87.891 Personal history of nicotine dependence
CPT/HCPCS: 74176; 80048; 81001; 85025; 96361; 96374; 96375; 99283; J7030; A4216; J2405

== ENCOUNTER → 2025-06-27 | Outpatient (CLI) | payer MEDICARE, OTHER, SELFPAY ==
--- NOTE | 2025-06-27 10:54 | EKG12_ITS ---
Test Reason : OP Blood Pressure : */* mmHG Vent. Rate : 73 BPM Atrial Rate : 73 BPM P-R Int : 132 ms QRS Dur : 94 ms QT Int : 404 ms P-R-T Axes : 70 46 73 degrees QTcB Int : 445 ms Normal sinus rhythm Possible Left atrial enlargement Borderline ECG Confirmed by MILA MANZANARES, KARAN ([id number]), editor trade journal MAULIK AMATO ([id number]) on 06/28/2025 10:41:34 AM Referred By: Yanick Jurado Confirmed By: KARAN ZARAGOZA MD
[2025-06-27 11:15] LABS: Hematocrit 47.1 % (40-54); Hemoglobin 16.5 g/dL (13.0-16.5); Immature Granulocytes Count 0.020 X10^3/uL (0.0-0.0); Mean Corp Hgb Conc 35.0 g/dL (32-36); Mean Corpuscular Volume 91.5 fL (80-94); Mean Platelet Vol. 8.8 fl (6.2-12.0); NRBC Flagged by Analyzer 0 % (0-5); Platelet Count 259 K/mm3 (150-450); RBC Distribution Width CV 12.6 % (11.6-14.6); RBC Distribution Width SD 42.2 fl (35.1-43.9); Red Blood Count 5.15 M/mm3 (4.6-6.2); White Blood Count 7.8 K/mm3 (4.4-11.0)
[2025-06-27 11:27] LABS: Anion Gap 12 (5-15); BUN 22 mg/dL (4-19); BUN/Creat Ratio 23.7 RATIO (10-20); Calcium,Total 8.9 mg/dL (7.6-11.0); Carbon Dioxide 22.9 mmol/L (21.0-32.0); Chloride 106 mmol/L (98-108); Glucose 114 mg/dL (70-99); Potassium 4.4 mmol/L (3.3-5.1)
== END | disposition home or self-care (01) ==
PROVIDERS: PCP Internal Medicine; Referring Provider Family Medicine; Visit Provider Specialist
DX: Z01.810 Encounter for preprocedural cardiovascular examination (principal); Z01.812 Encounter for preprocedural laboratory examination
CPT/HCPCS: 36415; 80048; 85025; 93005